=== PATIENT | male | born 1960 | race Caucasian/White ===

== ENCOUNTER → 2017-10-26 | Outpatient (CLI) | payer MEDICARE, OTHER ==
--- NOTE | 2017-10-27 08:21 | MR ---
EXAMINATION TYPE: MR lumbar spine wo con DATE OF EXAM: 10/26/2017 COMPARISON: NONE HISTORY: Back pain TECHNIQUE: T1 and T2 axial and sagittal images of the lumbar spine are submitted. FINDINGS: There is no abnormal signal seen within the visualized spinal cord or paraspinal soft tissu es. At T11-T12 there is degenerative disc disease and sagittal disc bulging. Axial images do not include this region. T12-L1 no disc herniation or canal stenosis. No foraminal encroachment. There is mild facet arthropat hy At L1-2 there is no disc herniation or canal stenosis. There is hypertrophic change facets. No forami nal encroachment. At L2-3 there is degenerative disc disease and hypertrophic changes facets. Mild circumferential disc bulging but no foraminal encroachment or canal stenosis. No focal herniation. At L3-4 there is degenerative disc disease with moderate facet arthropathy and ligamentum flavum hype rtrophy. Circumferential disc bulging is seen with mild bilateral foraminal encroachment. At L4-5 there is moderate to severe facet arthropathy. Circumferential disc bulging is seen greater p aracentrally to the right with mild bilateral foraminal encroachment. There is mild effacement of the michelle sac and borderline canal stenosis. At L5-S1 there is vacuum disc and severe degenerative disc disease with facet arthropathy. There is m ild bilateral foraminal encroachment but no canal stenosis or focal herniation. IMPRESSION: 1. Multilevel degenerative disc disease and facet arthropathy result in multilevel foraminal encroach ment as discussed above. 2. There is multilevel disc bulging but no evidence of focal herniation any of the visualized levels. Borderline canal stenosis L4-L5 foraminal encroachment. 3. There is a mixed signal in the region of the gallbladder fossa which could be related to gallstone s. Correlate with ultrasound.
== END | disposition home or self-care (01) ==
LOC: RADMRIMAIN 08:39
PROVIDERS: ATTEND Family Medicine
DX: M48.061 Spinal stenosis, lumbar region without neurogenic claudication (principal); M51.26 Other intervertebral disc displacement, lumbar region; M51.36 Other intervertebral disc degeneration, lumbar region; M46.96 Unspecified inflammatory spondylopathy, lumbar region
CPT/HCPCS: 72148

== ENCOUNTER → 2018-11-15 | Outpatient (CLI) | payer MEDICARE, OTHER ==
--- NOTE | 2018-11-15 10:58 | NM ---
Nuclear medicine hepatobiliary scan. HISTORY: Pain. DOSAGE: The patient disease 8 ounces ensure plus and 4.6 mCi of Technetium 99m Choletec. FINDINGS: There is normal hepatic extraction. The gallbladder is seen by 40 minutes. There is bilia ry to bowel clearance by 25 minutes. Ejection fraction is 76%. IMPRESSION: 1. Normal hepatobiliary exam
== END | disposition home or self-care (01) ==
LOC: RADNMMAIN 08:44
PROVIDERS: ATTEND Family Medicine
DX: R10.11 Right upper quadrant pain (principal)
CPT/HCPCS: 78226; A9537

== ENCOUNTER 2021-07-17 15:05 | Emergency (ER) | payer MEDICARE, OTHER ==
[2021-07-17 15:21] VITALS: RESP 18; TEMP 97.9
[2021-07-17] MEDS ORDERED: MORPHINE SULFATE 4 MG/ML SYRINGE IM STA (15:53)
--- NOTE | 2021-07-17 16:21 | ED ---
Fall HPI - General Chief Complaint: Fall Stated Complaint: Fall/Hip pain Time Seen by Provider: 07/17/21 15:42 Source: patient, EMS Mode of arrival: EMS - History of Present Illness Initial Comments: Patient is a 60-year-old male who presents to the emergency department with chief complaint of right hip pain due to fall Saturday. Patient was getting out of his car while it was dark out and tripped over the curb, landing on his left side. Patient hit his head and lost consciousness briefly. He has not blood thinners. Patient currently reports left shoulder pain, right hip pain, and lower back pain. Patient thought pain would improve but it not. He denies other complaints at this time including fever, chills, headache, shortness of breath, chest pain, abdominal pain,/tingling in the groin, urinary retention, and loss of bowel/bladder control. - Related Data Home Medications Medication Instructions Recorded Confirmed Ascorbic Acid [Vitamin C] 500 mg PO DAILY 07/17/21 07/17/21 Atorvastatin Calcium [Lipitor] 80 mg PO HS 07/17/21 07/17/21 Budesonide/Formoterol Fumarate 2 puff INHALATION RT-BID 07/17/21 07/17/21 [Symbicort 160-4.5 Mcg Inhaler] Cariprazine HCl [Vraylar] 1.5 mg PO HS 07/17/21 07/17/21 FLUoxetine HCL [PROzac] 40 mg PO DAILY 07/17/21 07/17/21 HYDROcodone/APAP 7.5-325MG [Valliant 2 tab PO BID 07/17/21 07/17/21 7.5-325] Insulin Degludec [Tresiba 25 units SQ HS 07/17/21 07/17/21 Flextouch U-100 Pen] Linagliptin [Tradjenta] 5 mg PO DAILY 07/17/21 07/17/21 Losartan/Hydrochlorothiazide 1 tab PO DAILY 07/17/21 07/17/21 [Losartan-Hctz 100-25 mg Tab] Omeprazole 20 mg PO DAILY 07/17/21 07/17/21 metFORMIN HCL [Glucophage] 1,000 mg PO BID 07/17/21 07/17/21 Allergies Allergy/AdvReac Type Severity Reaction Status Date / Time No Known Allergies Allergy Verified 07/17/21 16:39 Review of Systems ROS Statement: Those systems with pertinent positive or pertinent negative responses have been documented in the HPI. ROS Other: All systems not noted in ROS Statement are negative. Past Medical History Past Medical History: Asthma, COPD, Diabetes Mellitus, Hyperlipidemia, Hypertension Past Surgical History: Hernia Repair, Tonsillectomy Additional Past Surgical History / Comment(s): Left Knee surg. Past Psychological History: Bipolar Smoking Status: Never smoker Past Alcohol Use History: Occasional Past Drug Use History: Marijuana General Exam Limitations: no limitations General appearance: alert, in no apparent distress Head exam: Present: atraumatic, normocephalic, normal inspection Eye exam: Present: normal appearance, PERRL, EOMI. Absent: scleral icterus, conjunctival injection, periorbital swelling Neck exam: Present: normal inspection, full ROM. Absent: tenderness Respiratory exam: Present: normal lung sounds bilaterally. Absent: respiratory distress, wheezes, rales, rhonchi, stridor Cardiovascular Exam: Present: regular rate, normal rhythm, normal heart sounds. Absent: systolic murmur, diastolic murmur, rubs, gallop, clicks GI/Abdominal exam: Present: soft, normal bowel sounds. Absent: distended, tenderness, guarding, rebound, rigid Extremities exam: Present: normal inspection, full ROM (Left shoulder, back, right hip), tenderness (Pain with palpation of the left anterior shoulder), normal capillary refill Right Hip exam: Present: normal inspection, full ROM. Absent: tenderness Back exam: Present: normal inspection, full ROM, tenderness (Pain along the spinous processes of the lumbosacral spine), vertebral tenderness. Absent: muscle spasm, paraspinal tenderness Neurological exam: Present: alert, oriented X3, CN II-XII intact Psychiatric exam: Present: normal affect, normal mood Course Vital Signs 07/17/21 07/17/21 15:09 17:26 Temperature 97.9 F Pulse Rate 71 60 Respiratory 18 18 Rate Blood Pressure 143/83 137/73 O2 Sat by Pulse 99 98 Oximetry Medical Decision Making - Medical Decision Making This is a 60-year-old male who presents with right hip pain after fall yesterday. Thorough history and examination were performed. CT of the brain and C-spine without contrast revealed no acute intracranial hemorrhage, mass effect, midline shift seen and there is no acute fracture or dislocation evident in the cervical spine. Left shoulder x-ray reveals no definite acute fracture or dislocation. Lumbosacral spine and right hip, and pelvis x-ray are unremarkable. Results discussed with patient. We discussed the incidental findings found on CT of the brain and C-spine without contrast. Patient is instructed to follow- up with his primary care provider in 1 to 2 days. Patient given walker prescription as he has concern with unsteady gait due to pain. Fall risk education was given. Dr. Carbajal is my attending. Disposition Clinical Impression: Right hip pain Disposition: HOME SELF-CARE Condition: Good Instructions (If sedation given, give patient instructions): Fall Prevention for Older Adults (ED) Additional Instructions: You may use walker to assist to with activity. Take Tylenol as needed for pain. Follow-up with primary care provider in 1-[address] shows heterogenous parotid glands.. Follow up with cycle specialist if pain does not resolve in 1 to 2 weeks. Is patient prescribed a controlled substance at d/c from ED?: No Referrals: Palmira Harris DO [Primary Care Provider] - 1-2 days Toro Shipman MD [Medical Doctor] - 1-2 days Time of Disposition: 18:38
--- NOTE | 2021-07-17 16:33 | CT ---
EXAMINATION TYPE: CT brain cspine wo con DATE OF EXAM: 07/17/2021 COMPARISON: None available HISTORY: Fall. CT DLP: 1669.8 mGycm Automated exposure control for dose reduction was used. TECHNIQUE: CT scan of the head and cervical spine are performed without contrast. FINDINGS: There is no acute intracranial hemorrhage, mass effect, or midline shift identified. The ventricles and sulci are within normal limits in size. The globes are intact and the visualized sin uses are clear. Cervical spine is visualized in its entirety from C1 through upper thoracic levels and demonstrates s atisfactory alignment without evidence of acute fracture or dislocation. Prevertebral soft tissue ap pears within normal limits. The C1-C2 articulation is unremarkable. Degenerative changes from C3-4 d own to C7-T1 levels. Heterogeneous parotid glands, please correlate clinically. IMPRESSION: 1. There is no acute fracture or dislocation evident in the cervical spine. 2. No acute intracranial hemorrhage, mass effect, or midline shift is seen. 3. Incidental findings as described above.
--- NOTE | 2021-07-17 16:37 | XR ---
EXAMINATION TYPE: XR lumbosacral spine min 4V DATE OF EXAM: 07/17/2021 4:06 PM INDICATION: Patient age:Male; 60 years old; Reason for study: fall; COMPARISON: None TECHNIQUE: The lumbar spine was examined in 2 views. FINDINGS: No evidence of any acute osseous pathology. No evidence of loss of vertebral body height i s seen. There is normal alignment of the lumbar vertebral bodies. Multilevel disc degeneration change s are present osteophyte formation and facet joint arthropathy. IMPRESSION: 1. No acute process. 2. Mild multilevel disc degeneration.
--- NOTE | 2021-07-17 16:37 | XR ---
EXAMINATION TYPE: XR shoulder complete LT DATE OF EXAM: 07/17/2021 COMPARISON: Unavailable INDICATION: Fall TECHNIQUE: 3 views of the left shoulder FINDINGS: Osteopenia. No definite acute fracture line identified. No humeral head dislocation or significant stauffer bluxation. Mild degenerative changes of the acromioclavicular joint. No signs of rotator cuff calcifi c tendinitis. Rather maintained acromial humeral distance. IMPRESSION: No definite acute fracture or dislocation.
--- NOTE | 2021-07-17 16:38 | XR ---
EXAMINATION TYPE: XR Hip Complete RT DATE OF EXAM: 07/17/2021 4:03 PM INDICATION: Patient age:Male; 60 years old; Reason for study: fall; COMPARISON: None. TECHNIQUE: The right hip was examined in the frontal and lateral projections FINDINGS: Severe degenerative changes of the right hip with sclerosis and wjsh-oe-ykhc articulation. No evidence of any acute osseous pathology, joint dislocation, or soft tissue swelling. IMPRESSION: End-stage osteoarthritic changes of the right hip. No evidence of fracture.
--- NOTE | 2021-07-17 19:02 | XR ---
EXAMINATION TYPE: XR pelvis AP view DATE OF EXAM: 07/17/2021 6:19 PM INDICATION: Patient age:Male; 60 years old; Reason for study: fall; COMPARISON: Right hip radiograph same day. TECHNIQUE: The pelvis was examined in a single projection. FINDINGS: Severe degenerative changes of the hips of [id number]-hg-[id number] articulation. No evidence of displa sunny fracture. IMPRESSION: 1. No acute osseous pathology. 2. End-stage osteoarthritic changes of the hips.
[2021-07-17 19:10] VITALS: BP 172/77; PULSE 83
== END 2021-07-17 19:19 | disposition home or self-care (01) ==
LOC: EC 15:05
DX: M25.551 Pain in right hip (principal); M54.50 Low back pain, unspecified; M25.512 Pain in left shoulder; E11.9 Type 2 diabetes mellitus without complications; I10 Essential (primary) hypertension; J44.9 Chronic obstructive pulmonary disease, unspecified; E78.5 Hyperlipidemia, unspecified; F31.9 Bipolar disorder, unspecified; F12.90 Cannabis use, unspecified, uncomplicated; Z79.4 Long term (current) use of insulin; Z79.84 Long term (current) use of oral hypoglycemic drugs; Z79.899 Other long term (current) drug therapy; W01.0XXA Fall on same level from slipping, tripping and stumbling without subsequent striking against object, initial encounter
CPT/HCPCS: 72110; 72170; 73030; 73502; 72125; 70450; 99284; 96372; J2270

== ENCOUNTER 2021-10-05 07:11 | Day surgery (SDC) | payer MEDICARE, OTHER ==
[2021-10-04 13:41] VITALS: BMI 38.7
[2021-10-05] MEDS ORDERED: LACTATED RINGERS 1,000 ML IV SCH (07:52)
[2021-10-05 08:12] LABS: Glucose,Whole Blood 147 mg/dL (75-99)
[2021-10-05 08:16] VITALS: RESP 16; TEMP 97.9
[2021-10-05] MEDS ORDERED: PROPOFOL 10 MG/ML 20 ML VIAL IV ONE (08:26)
[2021-10-05] MEDS ORDERED: LIDOCAINE 2% INJ 20 MG/ML (2 ML VIAL) ONE (08:26)
--- NOTE | 2021-10-05 08:30 | P.GSHP ---
History of Present Illness H&P Date: 10/05/21 Chief Complaint: Screening This a 60-year-old male who presents today for screening colonoscopy. Patient denies any significant GI complaints. Past Medical History Past Medical History: Asthma, COPD, Diabetes Mellitus, Fibromyalgia, G ERD/Reflux, Hyperlipidemia, Hypertension, Musculoskeletal Disorder, Osteoarthritis (OA) Additional Past Medical History / Comment(s): "Palpitations occasionally". Hemorrhoids, hx colon polyps. "Lumbar/sacral thinning discs". "Sores all over my body but most on left side, not sure what they are, Dr gave me Cortisone cream but hasn't helped, have had them for over a month, look like zits, they are itchy and if I pop them slightly discolored pus comes out". "Recent fall (07/16/21), seen in ER and everything checked out ok but I did injure right knee and right hip, had already suffered from chronic back pain but it has gotten a lot worse, I can hardly walk, using a walker". History of Any Multi-Drug Resistant Organisms: None Reported Past Surgical History: Hernia Repair, Orthopedic Surgery, Tonsillectomy Additional Past Surgical History / Comment(s): Left knee surgery, surgery for undescended testicles. ,COLONOSCOPY Past Anesthesia/Blood Transfusion Reactions: No Reported Reaction Smoking Status: Never smoker - Past Family History Father Family Medical History: Cancer Additional Family Medical History / Comment(s): Pancreatic cancer. Mother Additional Family Medical History / Comment(s): "Stent in heart, had blood clots." Medications and Allergies Home Medications Medication Instructions Recorded Confirmed Type Ascorbic Acid [Vitamin C] 500 mg PO DAILY 10/04/21 10/04/21 History Atorvastatin [Lipitor] 80 mg PO HS 10/04/21 10/04/21 History Budesonide/Formoterol Fumarate 2 puff INHALATION BID 10/04/21 10/04/21 History [Symbicort 160-4.5 Mcg Inhaler] FLUoxetine HCL [PROzac] 40 mg PO DAILY 10/04/21 10/04/21 History HYDROcodone/APAP 7.5-325MG [Crockett 1 tab PO Q6HR PRN 10/04/21 10/04/21 History 7.5-325] Insulin Degludec [Tresiba] 25 units SQ HS 10/04/21 10/04/21 History Linagliptin [Tradjenta] 5 mg PO DAILY 10/04/21 10/04/21 History Losartan/Hydrochlorothiazide 1 tab PO DAILY 10/04/21 10/04/21 History [Losartan-Hctz 100-25 mg Tab] Omeprazole 20 mg PO DAILY 10/04/21 10/04/21 History metFORMIN HCL [Glucophage] 1,000 mg PO BID 10/04/21 10/04/21 History Allergies Allergy/AdvReac Type Severity Reaction Status Date / Time empagliflozin Allergy High blood Verified 10/05/21 07:56 [From Jardiance] sugar Penicillins Allergy Unknown Verified 10/05/21 07:56 Childhood Surgical - Exam Vital Signs Temp Pulse Resp BP Pulse Ox 97.9 F 80 16 156/72 100 10/05/21 08:14 10/05/21 08:14 10/05/21 08:14 10/05/21 08:14 10/05/21 08:14 - General well developed, well nourished, no distress - Eyes PERRL - ENT normal pinna - Neck no masses - Respiratory normal expansion - Cardiovascular Rhythm: regular - Abdomen Abdomen: soft, non tender Results - Labs Abnormal Lab Results - Last 24 Hours (Table) 10/05/21 Range/Units 08:11 POC Glucose (mg/dL) 147 H (75-99) mg/dL Assessment and Plan Assessment: We'll perform screening colonoscopy.
--- NOTE | 2021-10-05 08:41 | P.OP ---
Date of Procedure: 10/05/21 Preoperative Diagnosis: Screening colonoscopy Postoperative Diagnosis: Internal and external hemorrhoids Mild diverticulosis Procedure(s) Performed: Colonoscopy Anesthesia: MAC Surgeon: Abraham Vaz Pathology: none sent Condition: stable Disposition: PACU Description of Procedure: Patient's placed on the endoscopy table in the lateral position. He received IV sedation. Digital rectal exam was performed. This revealed internal and external hemorrhoids. The flexible colonoscope was then placed patient anus passed rotator entire colon. The ileocecal valve was visualized. The cecum, ascending and transverse colon appeared normal. The descending; was mild diverticular changes. Scope was brought back the rectum and this appeared normal. Scope withdrawn for patient.
[2021-10-05 09:02] VITALS: BP 107/75; PULSE 83
== END 2021-10-05 09:12 | disposition home or self-care (01) ==
LOC: ORWHC2ENDO 07:11
PROVIDERS: ATTEND Surgery
DX: Z12.11 Encounter for screening for malignant neoplasm of colon (principal); K57.90 Diverticulosis of intestine, part unspecified, without perforation or abscess without bleeding; K64.4 Residual hemorrhoidal skin tags; K64.8 Other hemorrhoids; K21.9 Gastro-esophageal reflux disease without esophagitis; E11.9 Type 2 diabetes mellitus without complications; E78.5 Hyperlipidemia, unspecified; I10 Essential (primary) hypertension; J44.9 Chronic obstructive pulmonary disease, unspecified; M17.11 Unilateral primary osteoarthritis, right knee; M79.7 Fibromyalgia; Z79.4 Long term (current) use of insulin; Z79.51 Long term (current) use of inhaled steroids; Z87.19 Personal history of other diseases of the digestive system; Z88.0 Allergy status to penicillin
CPT/HCPCS: G0121; J2704; J2001

== ENCOUNTER 2021-11-06 06:19 | Day surgery (SDC) | payer MEDICARE, OTHER ==
[2021-11-02 14:57] VITALS: BMI 36.8
[~2021-11-06 06:19] MED LIST: ACETAMINOPHEN TAB 500 MG TAB PO PRN; DEXAMETHASONE SOD PHOSPHATE 4 MG/ML 1 ML VIAL IV ONE; HEPARIN SODIUM,PORCINE/PF 5,000 UNIT/0.5 ML SYRINGE SQ PRN; HYDROmorphone 0.5 MG/0.5 ML SYRINGE IVP PRN; LACTATED RINGERS 1,000 ML IV SCH; LIDOCAINE 1% (10MG/ML) FOR IV START INTRADERMA PRN; ONDANSETRON 4 MG/2 ML VIAL IVP ONE; Pre Op ABX Message 1 EACH MISC MISCELLANE ONE
[2021-11-06 07:06] VITALS: RESP 16
[2021-11-06 07:13] LABS: Glucose,Whole Blood 187 mg/dL (70-110)
[2021-11-06] MEDS ORDERED: fentaNYL (PF) 50 MCG/ML 2 ML AMP ONE (07:49)
[2021-11-06] MEDS ORDERED: PHENYLEPHRINE-0.9% NACL SYG 1,000 MCG/10 ML SYRINGE ONE (07:49)
[2021-11-06] MEDS ORDERED: MIDAZOLAM 2 MG/2 ML VIAL ONE (07:49)
--- NOTE | 2021-11-06 07:56 | P.GSHP ---
History of Present Illness H&P Date: 11/06/21 Chief Complaint: Internal and external hemorrhoids This is a 61-year-old male who presents today for hemorrhoidectomy. Patient has had issues with bleeding pain from internal and external hemorrhoids. He presents today for hemorrhoidectomy. Past Medical History Past Medical History: Asthma, COPD, Diabetes Mellitus, Fibromyalgia, GERD/Reflux, Hyperlipidemia, Hypertension, Musculoskeletal Disorder, Osteoarthritis (OA) Additional Past Medical History / Comment(s): "Palpitations occasionally". Hemorrhoids, hx colon polyps. "Lumbar/sacral thinning discs". "Sores all over my body but most on left side, not sure what they are, Dr gave me Cortisone cream but hasn't helped, have had them for over a month, look like zits, they are itchy and if I pop them slightly discolored pus comes out". "Recent fall (07/16), seen in ER and everything checked out ok but I did injure right knee and right hip, had already suffered from chronic back pain but it has gotten a lot worse, I can hardly walk, using a walker". History of Any Multi-Drug Resistant Organisms: None Reported Past Surgical History: Hernia Repair, Orthopedic Surgery, Tonsillectomy Additional Past Surgical History / Comment(s): Left knee surgery, surgery for undescended testicles, COLONOSCOPY. Past Anesthesia/Blood Transfusion Reactions: No Reported Reaction Past Psychological History: Bipolar Smoking Status: Never smoker Past Alcohol Use History: Occasional Past Drug Use History: Marijuana Additional Drug Use History / Comment(s): Marijuana use once a day. Aware no use 24 hrs prior to procedure. - Past Family History Father Family Medical History: Cancer Additional Family Medical History / Comment(s): Pancreatic cancer. Mother Additional Family Medical History / Comment(s): "Stent in heart, had blood clots." Medications and Allergies Home Medications Medication Instructions Recorded Confirmed Type Ascorbic Acid [Vitamin C] 500 mg PO DAILY 10/04/21 11/06/21 History Atorvastatin [Lipitor] 80 mg PO HS 10/04/21 11/06/21 History Budesonide/Formoterol Fumarate 2 puff INHALATION BID PRN 10/04/21 11/06/21 History [Symbicort 160-4.5 Mcg Inhaler] FLUoxetine HCL [PROzac] 40 mg PO QAM 10/04/21 11/06/21 History HYDROcodone/APAP 7.5-325MG [Garrard 1 tab PO Q6HR PRN 10/04/21 11/06/21 History 7.5-325] Insulin Degludec [Tresiba] 28 units SQ HS 10/04/21 11/06/21 History Linagliptin [Tradjenta] 5 mg PO QAM 10/04/21 11/06/21 History Losartan/Hydrochlorothiazide 1 tab PO QAM 10/04/21 11/06/21 History [Losartan-Hctz 100-25 mg Tab] Omeprazole 20 mg PO QAM 10/04/21 11/06/21 History metFORMIN HCL [Glucophage] 1,000 mg PO BID 10/04/21 11/06/21 History Allergies Allergy/AdvReac Type Severity Reaction Status Date / Time empagliflozin Allergy High blood Verified 11/06/21 06:49 [From Jardiance] sugar Penicillins Allergy Unknown Verified 11/06/21 06:49 Childhood Surgical - Exam Vital Signs Temp Pulse Resp BP Pulse Ox 96.9 F L 70 16 131/71 98 11/06/21 06:46 11/06/21 06:46 11/06/21 06:46 11/06/21 06:46 11/06/21 06:46 - General well developed, well nourished, no distress - Eyes PERRL - ENT normal pinna - Neck no masses - Respiratory normal expansion - Cardiovascular Rhythm: regular - Abdomen Abdomen: soft, non tender - Rectum Internal and external hemorrhoids Results - Labs Abnormal Lab Results - Last 24 Hours (Table) 11/06/21 Range/Units 07:10 POC Glucose (mg/dL) 187 H (70-110) mg/dL Assessment and Plan Assessment: Internal and external hemorrhoids. We'll perform hemorrhoidectomy.
[2021-11-06] MEDS ORDERED: SODIUM CHLORIDE 0.9% 50 ML with ceFAZolin 2,000 MG IV ONE ×2 (08:23)
[2021-11-06] MEDS ORDERED: BUPIVACAIN-EPI 0.25%-1:200,000 30 ML VIAL SQ ONE (08:23)
--- NOTE | 2021-11-06 08:35 | P.OP ---
Date of Procedure: 11/06/21 Preoperative Diagnosis: Internal and external hemorrhoids Postoperative Diagnosis: Internal hemorrhoids Procedure(s) Performed: Internal and external hemorrhoidectomy Anesthesia: spinal Surgeon: Abraham Vaz Estimated Blood Loss (ml): 5 Pathology: other (Hemorrhoids) Condition: stable Disposition: PACU Description of Procedure: The patient's placed in the prone position after receiving spinal anesthetic. His anus was prepped and draped usual fashion. The patient internal and external hemorrhoids. Using the anal retractor the right anterior hemorrhoidal column was grasped and then using Harmonic scissors the hemorrhoids were excised. The left lateral hemorrhoidal column was then grasped and excised with Harmonic scissors. And then the right posterior hemorrhoidal column was grasped excised and Harmonic scissors. There was no bleeding seen. A Gelfoam was placed in the anus. Patient top she will well. Sent to recovery room stable condition.
[2021-11-06 08:47] VITALS: TEMP 97
[2021-11-06 09:43] VITALS: BP 148/87; PULSE 72
== END 2021-11-06 10:12 | disposition home or self-care (01) ==
LOC: OR 06:19
PROVIDERS: ATTEND Surgery
DX: K64.4 Residual hemorrhoidal skin tags (principal); J44.9 Chronic obstructive pulmonary disease, unspecified; E11.9 Type 2 diabetes mellitus without complications; M79.7 Fibromyalgia; K21.9 Gastro-esophageal reflux disease without esophagitis; E78.5 Hyperlipidemia, unspecified; I10 Essential (primary) hypertension; M19.90 Unspecified osteoarthritis, unspecified site; Z86.010 Personal history of colon polyps; G89.29 Other chronic pain; M54.9 Dorsalgia, unspecified; Z98.890 Other specified postprocedural states; F31.9 Bipolar disorder, unspecified; Z80.0 Family history of malignant neoplasm of digestive organs; Z82.49 Family history of ischemic heart disease and other diseases of the circulatory system; Z79.84 Long term (current) use of oral hypoglycemic drugs; Z79.4 Long term (current) use of insulin; Z79.899 Other long term (current) drug therapy; Z88.0 Allergy status to penicillin; Z88.8 Allergy status to other drugs, medicaments and biological substances
CPT/HCPCS: 88304; 46260; J2250; J1100; J2405; J0690; J3010; J2370; J1644

== ENCOUNTER → 2021-12-12 | Outpatient (CLI) | payer MEDICARE, OTHER ==
--- NOTE | 2021-12-13 09:07 | CA ---
Transthoracic Echo Report Name: Nba Lopez Age: 61 Gender: M : 1960 Exam Date: 12/12/2021 14:55 Exam Location: [place] [facility] Ht (in): 68 Wt (lb): 252 Ordering Physician: Palmira Harris DO Attending/Referring Phys: Maria Teresa Duque [facility] Staff Radiographer Jadyn Rosario, MARILYN Procedure CPT: Indications: R01.1 cardiac murmur Cardiac Hx: Technical Quality: Fair Contrast 1: Total Dose (mL): Contrast 2: Total Dose (mL): MEASUREMENTS (Male / Female) Normal Values 2D ECHO LV Diastolic Diameter PLAX 5.0 cm 4.2 - 5.9 / 3.9 - 5.3 cm LV Systolic Diameter PLAX 3.6 cm IVS Diastolic Thickness 1.3 cm 0.6 - 1.0 / 0.6 - 0.9 cm LVPW Diastolic Thickness 1.5 cm 0.6 - 1.0 / 0.6 - 0.9 cm LV Relative Wall Thickness 0.5 RV Internal Dim ED PLAX 3.1 cm LA Volume 71.9 cm??? 18 - 58 / 22 - 52 cm??? M-MODE Aortic Root Diameter MM 3.4 cm LA Systolic Diameter MM 4.1 cm LA Ao Ratio MM 1.2 MV E Point Septal Separation 0.0 cm AV Cusp Separation MM 2.0 cm DOPPLER MV Area PHT 3.8 cm??? Mitral E Point Velocity 50.8 cm/s Mitral A Point Velocity 73.1 cm/s Mitral E to A Ratio 0.7 MV Deceleration Time 198.8 ms FINDINGS Left Ventricle Left ventricular ejection fraction is estimated at 50-55%. Mildly increased left ventricular wall thickness. Right Ventricle Normal right ventricular size and function. Right ventricular systolic pressure within normal limits. Right Atrium Normal right atrial size. Left Atrium Moderately increased left atrial volume. Mitral Valve Mitral valve not well visualized. [id number] mitral regurgitation. Aortic Valve Trileaflet aortic valve. Aortic valve sclerosis. Tricuspid Valve Structurally normal tricuspid valve. Trace tricuspid regurgitation. Pulmonic Valve Pulmonic valve not well visualized. Pericardium Echo free space anterior to the right ventricle likely represents a fat pad. Aorta Normal size aortic root and proximal ascending aorta. CONCLUSIONS Normal LV size and systolic function Previewed by: Dr. Chris Cox MD (Electronically Signed) Final Date: 13 December 2021 09:06
== END | disposition home or self-care (01) ==
LOC: RADECHMAIN 14:38
PROVIDERS: ATTEND Family Medicine
DX: I08.2 Rheumatic disorders of both aortic and tricuspid valves (principal)
CPT/HCPCS: 93306

== ENCOUNTER → 2022-01-29 | Outpatient (CLI) | payer MEDICARE, OTHER ==
[2022-01-29 15:18] LABS: INR 0.9 (<1.2); Partial Thromboplastin Time 22.8 sec (22.0-30.0); Prothrombin Time 10.4 sec (9.0-12.0)
[2022-01-29 18:06] LABS: HCT 35.8 % (39.6-50.0); HGB 11.7 g/dL (13.0-17.0); MCH 28.7 pg (27.0-32.0); MCHC 32.7 g/dL (32.0-37.0); MCV 87.7 fL (80.0-97.0); Mean Platelet Volume 10.1 fL (9.5-12.2); NRBC Per 100 WBC 0 /100 WBCS (0.0-0.0); Platelet Count 326 X 10*3/uL (140-440); RBC 4.08 X 10*6/uL (4.40-5.60); RDW 14.1 % (11.5-14.5); WBC 10.86 X 10*3/uL (4.50-10.00)
[2022-01-29 18:54] LABS: Albumin 4.2 g/dL (3.8-4.9); Albumin/Globulin Ratio 1.47 (1.60-3.17); Anion Gap 15.8 mmol/L (10.00-18.00); BUN/Creat Ratio 13.31 Ratio (12.00-20.00); Blood Urea Nitrogen 20.9 mg/dL (9.0-27.0); Calcium 9.1 mg/dL (8.7-10.3); Carbon Dioxide 23.9 mmol/L (20.0-27.5); Globulin 2.9 g/dL (1.6-3.3); Non-African American GFR(CKD) 46.6 (60.0-200.0); Potassium 3.9 mmol/L (3.5-5.5); Total Bilirubin 0.3 mg/dL (0.30-1.20); Total Protein 7.1 g/dL (6.2-8.2)
[2022-01-29 22:23] LABS: Appearance,Urine Clear (Clear); Bilirubin,Urine Negative (Negative); Blood,Urine Negative (Negative); Color,Urine Yellow (Yellow); Ketones,Urine Trace mg/dL (Negative); Nitrite,Urine Negative (Negative); PH, Urine 5.5 (5.0-8.0); Specific Gravity,Urine 1.027 (1.001-1.030)
== END | disposition home or self-care (01) ==
LOC: LABPAT 13:05
PROVIDERS: ATTEND Orthopaedic Surgery
DX: Z01.812 Encounter for preprocedural laboratory examination (principal)
CPT/HCPCS: 80053; 81003; 85027; 85610; 85730; 87070; 93005

== ENCOUNTER 2022-02-09 05:49 | Observation (INO) | payer MEDICARE, OTHER ==
[2022-01-31 14:57] VITALS: BMI 37.2
[~2022-02-09 05:49] MED LIST changes: -DEXAMETHASONE SOD PHOSPHATE 4 MG/ML 1 ML VIAL IV ONE; -HEPARIN SODIUM,PORCINE/PF 5,000 UNIT/0.5 ML SYRINGE SQ PRN; -HYDROmorphone 0.5 MG/0.5 ML SYRINGE IVP PRN; -LACTATED RINGERS 1,000 ML IV SCH; -LIDOCAINE 1% (10MG/ML) FOR IV START INTRADERMA PRN; -ONDANSETRON 4 MG/2 ML VIAL IVP ONE; +ONDANSETRON 4 MG/2 ML VIAL IVP PRN; -Pre Op ABX Message 1 EACH MISC MISCELLANE ONE; +TRANEXAMIC ACID IN NACL,ISO-OS 1,000 MG in SALINE 1 100ML.BAG IVPB PRN
[2022-02-09] MEDS ORDERED: KETOROLAC 15 MG/ML 1 ML VIAL IVP PRN (06:00)
[2022-02-09] MEDS ORDERED: DEXAMETHASONE SOD PHOSPHATE 10 MG/ML 1 ML VIAL IV PRN (06:00)
[2022-02-09] MEDS ORDERED: FAMOTIDINE 20 MG/2 ML VIAL IVP PRN (06:00)
[2022-02-09] MEDS ORDERED: DOCUSATE 100 MG CAP PO PRN (06:00)
[2022-02-09] MEDS ORDERED: oxyCODONE ER 10 MG TAB.ER.12H PO PRN (06:00)
[2022-02-09] MEDS ORDERED: MIDAZOLAM 2 MG/2 ML VIAL IV PRN (06:20)
[2022-02-09 06:41] LABS: Glucose,Whole Blood 168 mg/dL (70-110)
[2022-02-09] MEDS: LACTATED RINGERS 1,000 ML IV SCH (07:00)
[2022-02-09] MEDS ORDERED: fentaNYL (PF) 50 MCG/ML 2 ML AMP IVP ONE (07:09)
[2022-02-09] MEDS ORDERED: KETAMINE 10 MG/ML 20 ML VIAL ONE (07:25)
[2022-02-09] MEDS ORDERED: ROCURONIUM 10 MG/ML (5 ML VIAL) IV ONE (07:25)
[2022-02-09] MEDS ORDERED: SUCCINYLCHOLINE CHLORIDE 200 MG/10 ML VIAL IV ONE (07:25)
[2022-02-09] MEDS ORDERED: HYDROmorphone (PF) 1 MG/ML ONE (07:25)
[2022-02-09] MEDS ORDERED: SODIUM CHLORIDE 0.9% (PF) 10 ML VIAL ONE (07:25)
[2022-02-09] MEDS ORDERED: TRANEXAMIC ACID IN NACL,ISO-OS 1,000 MG/100 ML BAG ONE (07:25)
[2022-02-09] MEDS ORDERED: NEOSTIGMINE 1 MG/ML 10 ML VIAL ONE (07:25)
[2022-02-09] MEDS ORDERED: GLYCOPYRROLATE 0.2 MG/ML 2 ML VIAL ONE (07:25)
[2022-02-09] MEDS ORDERED: LIDOCAINE 2% INJ 20 MG/ML (2 ML VIAL) ONE (07:25)
[2022-02-09] MEDS ORDERED: fentaNYL (PF) 50 MCG/ML 2 ML AMP ONE (07:25)
[2022-02-09] MEDS ORDERED: PROPOFOL 10 MG/ML 20 ML VIAL IV ONE (07:25)
[2022-02-09] MEDS ORDERED: MIDAZOLAM 2 MG/2 ML VIAL ONE (07:25)
[2022-02-09] MEDS ORDERED: ROPIVACAINE 5 MG/ML 30 ML VIAL ONE (07:25)
[2022-02-09] MEDS ORDERED: ROPIVACAINE/EPI/CLONIDINE/KET 50 ML SYRINGE MISCELLANE PRN (07:26)
[2022-02-09] MEDS: ROPIVACAINE 246.25 MG, EPINEPHrine 0.5 MG, KETOROLAC (30 mg/mL) 30 MG, cloNIDine HCL/PF... MISCELLANE PRN ×10 (08:19→09:42)
[2022-02-09] MEDS ORDERED: LACTATED RINGERS 1,000 ML IV ONE (09:52)
--- NOTE | 2022-02-09 10:03 | FL ---
Fluoroscopy HISTORY: Right hip replacement 40 seconds fluoroscopy time supplied to the referring clinician. 6 intraoperative C-arm images docum ent the procedure. See dictated report from orthopedic surgery.
[2022-02-09] MEDS ORDERED: NALOXONE 0.4 MG/ML 1 ML VIAL IV PRN (10:23)
[2022-02-09] MEDS ORDERED: HYDROmorphone 0.5 MG/0.5 ML SYRINGE IVP PRN (10:23)
[2022-02-09] MEDS ORDERED: hydrOXYzine pamoate 25 MG CAP PO PRN (10:23)
[2022-02-09] MEDS ORDERED: HYDROmorphone 1 MG/ML 1 ML SYRINGE IVP PRN (10:23)
[2022-02-09] MEDS ORDERED: HYDROcodone/APAP 5-325MG 1 EACH TAB PO PRN ×2 (10:23)
--- NOTE | 2022-02-09 10:26 | P.OP ---
Date of Procedure: 02/09/22 Preoperative Diagnosis: 1. Severe right hip osteoarthritis 2. BMI 38.3 3. COPD 4. Type 2 diabetes, hemoglobin A1c 7.1 Postoperative Diagnosis: Same Procedure(s) Performed: Right direct anterior total hip arthroplasty Implants: 1. Gerri Trident II Acetabular Cup, Size #52 2. [place] Insignia Size # 7 Femoral Stem, Standard Offset 3. Biolox delta femoral head, 36, -5 neck Anesthesia: GETA Surgeon: Toro Shipman Director [employer] Security #1: Mary Carmen Hernández Estimated Blood Loss (ml): 200 IV fluids (ml): 1,200 Pathology: none sent Condition: stable Disposition: PACU Indications for Procedure: I had a long discussion with the patient in the office on the potential risks and complications of an elective total hip replacement through a direct anterior approach. Risks discussed include, but are certainly not limited to, risks from anesthesia, superficial infection requiring local wound care or antibiotics, deep honey-prosthetic joint infection and the treatment required to eradicate infection, intraoperative fracture, postoperative periprosthetic fracture, damage to local blood vessels or nerves particularly the lateral femoral cutaneous nerve, delayed wound healing requiring local wound care or possibly surgical debridement, hip dislocation, leg length discrepancy, soft tissue irritation around the total hip implant such as iliopsoas tendinitis or trochanteric bursitis, wear and osteolysis from the implants, squeaking or audible noises, groin pain, thigh pain, heterotopic ossification, stiffness, aseptic loosening of the implants, dissatisfaction with surgical outcome, need for revision surgery, DVT, PE, swelling of the operative extremity, acute coronary event, stroke, failure to thrive, and possibly loss of life or limb. The patient understands that while these are the most common complications after an elective hip replacement there are certainly other less common complications possible. They were given ample time to ask questions regarding the potential complications of a hip replacement. Following our discussion the patient provided their verbal and written consent to go forward with an elective total hip replacement. Operative Findings: Severe right hip osteoarthritis Description of Procedure: The patient was identified in the preoperative holding area and the correct hip was marked with my initials. I reviewed the procedure and consent with the patient. All of their questions were answered. The patient was then brought back into the operating room by anesthesia. While on the [facility] anesthesia was administered by the anesthesia team. Preoperative antibiotics and tranexamic acid were also given. After the patient was under anesthesia I examined their ankles to determine their preoperative leg length discrepancy. The skin over the anterior aspect of the hip was shaved to remove hair over the site of planned incision. Both feet and ankles were padded with webril and boots for the [place] were applied. The patient was then carefully transferred onto the [place] table. A perineal post was immediately placed. The arms were placed on arm holders and were well-padded. Both boots were secured to the spars on the [place] table. The patient was positioned so that the pelvis was centered over the post. Nonsterile drapes were applied. A timeout was performed identifying the correct patient, operative extremity, and procedure. At this point fluoroscopy was brought in to take preoperative images of the pelvis and operative hip. Using the standing AP pelvis from the office as a template, a comparable image was obtained with fluoroscopy. A metallic bar was used to create a bi-ischial line for use as a reference to leg length adjustments during the procedure. Global offset was also measured on both the operative and nonoperative leg. Fluoroscopy was then brought out and a pre-scrub using a chlorhexidine scrub brush was performed. The operative limb was then prepped and draped in the erika miguel sterile fashion. An anterior longitudinal incision was made lateral and distal to the ASIS. The skin and subcutaneous tissues were incised sharply. The underlying tensor fascia was identified and incised in its midportion. The fascia was dissected free from the underlying muscle and the muscle belly was retracted. A blunt tipped cobra retractor was placed over the superior neck under the muscle fibers of the gluteus minimus. The deep enveloping fascia of the tensor was incised. The anterior leash of vessels were then identified and cauterized. The fascia between the rectus and the capsule was then incised and the pre-capsular fat was excised. A second Cobra was placed inferior to the neck. The interval between the rectus and iliocapsularis and the hip capsule was developed and a retractor was placed carefully over the anterior rim of the acetabulum. A T-shaped anterior capsulotomy was performed. The superior capsular leaflet was left in place in the inferior capsular flap was excised. The Cobra retractors were placed intracapsularly. We then made a femoral neck osteotomy according to preoperative and intraoperative templating and confirmed the level of the osteot wandy using fluoroscopic imaging. The femoral head was removed, passed off to the back table, and sized. The superior capsular flap was excised. Retractors were placed circumferentially exposing the acetabulum. We then circumferentially debrided the acetabulum free of labrum and osteophytes. The pulvinar was removed to fully visualize the cotyloid fossa. We then sequentially reamed to achieve peripheral fit and excellent bleeding subchondral bone. The socket was thoroughly irrigated. The acetabular component was impacted into the appropriate position using fluoroscopy to guide version, inclination, and depth of insertion taking care to have a comparable image of the AP pelvis to the standing image taken in the office. An excellent press-fit was achieved and final position was confirmed using fluoroscopy. The press fit was augmented with bony cancellus dome screws. The liner was then impacted into the socket. Attention was then turned to the femur. The remnant dorsal lateral capsule was excised. The short external rotators were visible and protected. A bone hook was used to confirm appropriate translation of the trochanter away from the acetabulum. The leg was then extended and adducted and the bone hook was used to elevate the femur for broaching. A box osteotome and blunt tipped canal sound was then utilized to gain access to the femoral canal. We then sequenti ally broached the femur in appropriate anteversion until excellent torsional stability was achieved. The neck cut was brought flush to the trial broach with a calcar planar. A trial neck and head were then placed onto the broach and the hip was atraumatically reduced under direct visualization. External rotation to 90 was performed to assess stability. Fluoroscopy was brought in. An AP and l ateral fluoroscopic image of the proximal femur was obtained to assess position and fill of the trial broach. An AP of the pelvis was then obtained and matched to the preoperative image taken. A bi-ischial bar was then placed and measurements were taken to assess changes in length and offset. The hip was then carefully dislocated, the proximal femur was exposed, and the trial implants were removed. The wound and proximal femur was thoroughly irrigated using sterile saline and pulsatile lavage. The final femoral implant was dispensed and gently tapped into place generating an excellent press-fit. The trunnion was cleansed and the final head was tapped into place to engage the Kim taper. The acetabulum was irrigated and visualized to be free of debris. The hip was carefully reduced. Stability was checked clinically with external rotation to 90 and there was no evidence of instability. Final fluoroscopic images were taken. The wound was then thoroughly irrigated and soaked with a dilute Betadine rinse for 3 minutes. 3 L of sterile saline was irrigated through the wound using pulsatile lavage. Local anesthetic cocktail was injected into the soft tissues around the surgical field. A deep drain was placed. The wound was then closed in layers. A sterile dressing was placed over the surgical incision and drain site. The drapes were taken down and the patient was carefully transferred off of the [place] table. Following removal of the boots the leg lengths felt acceptable. The patient was then taken to recovery room having tolerated the procedure well. Mary Carmen Hernández PA-C was required as a skilled bioinformatics assistant for patient positioning, surgical exposure, retraction, placement of implants, and closure of the surgical wound. PLAN: The patient can weight-bear as tolerated on the operative extremity. 2 doses of postoperative antibiotics. DVT prophylaxis with aspirin 81 mg twice a day based on preoperative risk stratification. Physical therapy for gait training. Discontinue drain postoperative day #1 if output is less than 100 mL per shift.
[2022-02-09] MEDS: HYDROmorphone 0.5 MG/0.5 ML SYRINGE IVP PRN ×4 (10:35→22:01)
[2022-02-09 11:33] LABS: Glucose,Whole Blood 232 mg/dL (70-110)
[2022-02-09] MEDS ORDERED: INSULIN ASPART (NovoLOG) 100 UNIT/ML VIAL SQ ONE (11:46)
--- NOTE | 2022-02-09 13:19 | P.ANPRN ---
Procedure Note - Anesthesia - Nerve Block Performed Right Erector Spinae Time Out Performed: Yes (07:08) Date of Procedure: 02/09/22 Procedure Start Time: Procedure Stop Time: :16 Location of Patient: PreOp Indication: Acute Post-Operative Pain, Requested by Surgeon (Dr Shipman) Sedation Type: Sedate with meaningful contact maintained Preparation: Sterile Prep Position: Sitting Catheter: None Needle Types: Pajunk Needle Gauge: 21 Ultrasound used to visualize needle placement: Yes Ultrasound used to observe medication spread: Yes Injectate: 0.5% Ropivacaine (see comment for volume) (15cc +10cc PF Normal saline) Blood Aspirated: No Pain Paresthesia on Injection Noted: No Resistance on Injection: Normal Image Stored and Saved: Yes Events: Uneventful and Well Tolerated
[2022-02-09 16:48] LABS: Glucose,Whole Blood 210 mg/dL (70-110)
[2022-02-09] MEDS: SODIUM CHLORIDE 0.9% 1,000 ML IV SCH (17:24)
[2022-02-09 20:54] LABS: Glucose,Whole Blood 258 mg/dL (70-110)
[2022-02-09] MEDS: ASPIRIN 81 MG PO SCH (22:00)
[2022-02-09] MEDS: SENNOSIDES-DOCUSATE SODIUM 1 EACH TAB PO SCH (22:00)
[2022-02-10] MEDS: HYDROmorphone 0.5 MG/0.5 ML SYRINGE IVP PRN (06:05)
[2022-02-10 07:21] LABS: Glucose,Whole Blood 242 mg/dL (70-110)
[2022-02-10] MEDS: SODIUM CHLORIDE 0.9% 1,000 ML IV SCH (07:31)
[2022-02-10] MEDS: LACTATED RINGERS 1,000 ML IV SCH (07:33)
[2022-02-10] MEDS ORDERED: HYDROcodone/APAP 10-325MG 1 EACH TAB PO PRN (08:48)
--- NOTE | 2022-02-10 08:59 | P.PN ---
Subjective Progress Note Date: 02/10/22 Principal diagnosis: Status post right total hip arthroplasty This is a 61 year-old male post right direct anterior total hip arthroplasty. This is post-op day 1. The patient was evaluated at the bedside today. The patient denies nausea, vomiting, abdominal pain, shortness of breath, and chest pain this morning. He states his pain is not controlled at this time and only has received Dilaudid twice surgery and has not taken [place] yet. The patient does take 2 [place] 7.5mg on a daily basis at home preoperatively. The patient has not been up with physical therapy. The hemovac drain had 360 mL output since surgery. Objective - Vital Signs Vital signs: Vital Signs Temp 98.0 F 02/10/22 08:00 Pulse 98 02/10/22 08:00 Resp 16 02/10/22 08:00 BP 169/76 02/10/22 08:00 Pulse Ox 96 02/10/22 08:00 FiO2 Intake & Output 02/09/22 02/10/22 02/10/22 18:59 06:59 18:59 Intake Total 2800 120 Output Total 200 660 Balance 2600 -660 120 Weight 114.4 kg Intake: IV 1600 Intake, IV Titration 650 Amount Sodium Chloride 0.9% 1, 600 000 ml @ 75 mls/hr IV . [id number] [facility] Rx#:[id number] ceFAZolin 2 gm In Sodium 50 Chloride 0.9% 50 ml @ 100 mls/hr IVPB Q8HR [facility] Rx# :[id number] Oral 550 120 Output: Drainage 360 Right Hip 360 Urine 300 Estimated Blood Loss 200 Other: # Voids 3 - Exam The patient does not appear in acute distress. Alert and orientated x3. Dress ing is clean dry and intact. Incision site appears fine with no erythema or active drainage. Hemovac drain remains in. Calf is soft and nontender. Good foot and ankle motion without difficulty. Sensation and circulatory status is intact. - Labs Labs: Abnormal Lab Results - Last 24 Hours (Table) 02/09/22 02/09/22 02/09/22 Range/Units 11:30 16:45 20:53 POC Glucose (mg/dL) 232 H 210 H 258 H (70-110) mg/dL 02/10/22 Range/Units 07:19 POC Glucose (mg/dL) 242 H (70-110) mg/dL Assessment and Plan (1) Primary osteoarthritis of right hip Current Visit: Yes Status: Acute Code(s): M16.11 - UNILATERAL PRIMARY OSTEOARTHRITIS, RIGHT HIP SNOMED Code(s): 512316015463077 (2) Status post total hip replacement, right Current Visit: Yes Status: Acute Code(s): Z96.641 - PRESENCE OF RIGHT ARTIFICIAL HIP JOINT SNOMED Code(s): 749179591588 Plan: 1. Continue pain control, increase to [place] 10 mg with Dilaudid as needed. 2. Anticoagulation with Aspirin 3. Start physical therapy and ambulation today 4. Maintain hemovac drain. We will either remove later today or tomorrow morning. 5. Anticipate discharge home when pain is controlled.
[2022-02-10 09:02] LABS: Basophils # (A) 0.03 X 10*3/uL (0.00-0.10); Basophils % (A) 0.2 %; Eosinophils # (A) 0.01 X 10*3/uL (0.04-0.35); Eosinophils % (A) 0.1 %; HCT 27.1 % (39.6-50.0); HGB 8.6 g/dL (13.0-17.0); Immature Grans, Automated 0.3 %; Lymphocytes # (A) 2.15 X 10*3/uL (0.90-5.00); Lymphocytes % (A) 16.2 %; MCH 28.5 pg (27.0-32.0); MCHC 31.7 g/dL (32.0-37.0); MCV 89.7 fL (80.0-97.0); Mean Platelet Volume 10.2 fL (9.5-12.2); Monocytes # (A) 1.22 X 10*3/uL (0.20-1.00); Monocytes % (A) 9.2 %; NRBC Per 100 WBC 0 /100 WBCS (0.0-0.0); Neutrophils # (A) 9.81 X 10*3/uL (1.80-7.70); Platelet Count 266 X 10*3/uL (140-440); RBC 3.02 X 10*6/uL (4.40-5.60); RDW 14.2 % (11.5-14.5); WBC 13.26 X 10*3/uL (4.50-10.00)
--- NOTE | 2022-02-10 09:46 | P.PN ---
Progress Note - Text Progress Note Date: 02/10/22 I agree with the note and plan from this morning by Christie Phan NP. I also evaluated the patient at bedside. At time of my evaluation is sitting up in his bed. He reports moderate pain, but the back and groin pain from prior to surgery has significantly improved. His right leg is neurovascularly intact. We will clamp his drain for 4 hours and then resume suction overnight. He has been taking [place] at baseline prior to surgery we discussed this may make pain control following surgery more difficult. We will increase his [place] and if he continues to have pain will change his prescription to Percocet. He is agreeable to this. He'll likely discharge home tomorrow if his pain is co ntrolled and he passes physical therapy.
[2022-02-10] MEDS: HYDROcodone/APAP 10-325MG 1 EACH TAB PO PRN ×2 (09:54→14:11)
[2022-02-10] MEDS: ASPIRIN 81 MG PO SCH ×2 (09:54→21:38)
[2022-02-10 11:02] LABS: Glucose,Whole Blood 268 mg/dL (70-110)
[2022-02-10] MEDS: FLUoxetine HCL 20 MG CAP PO SCH (11:16)
[2022-02-10] MEDS: LINAGLIPTIN 5 MG TABLET PO SCH (11:16)
[2022-02-10] MEDS: LOSARTAN 50 MG TAB PO SCH (11:16)
[2022-02-10] MEDS: PANTOPRAZOLE 40 MG TABLET PO SCH (11:16)
[2022-02-10] MEDS: SYMBICORT 160-4.5 MCG INHALER INHALATION SCH ×2 (12:03→19:48)
[2022-02-10] MEDS: INSULIN ASPART (NovoLOG) 100 UNIT/ML VIAL SQ SCH ×3 (12:21→21:55)
[2022-02-10 16:13] LABS: Glucose,Whole Blood 190 mg/dL (70-110)
[2022-02-10] MEDS ORDERED: oxyCODONE-APAP 5-325MG 1 EACH TAB PO PRN (18:11)
[2022-02-10] MEDS: oxyCODONE-APAP 5-325MG 1 EACH TAB PO PRN (21:31)
[2022-02-10 21:39] LABS: Glucose,Whole Blood 269 mg/dL (70-110)
[2022-02-10] MEDS: PATIENT'S OWN (Cariprazine Hcl [Vraylar] 1.5 MG Capsule) PO SCH (21:39)
[2022-02-10] MEDS: ATORVASTATIN 80 MG TAB PO SCH (21:39)
[2022-02-10] MEDS: metFORMIN 500 MG TAB PO SCH (21:39)
[2022-02-10] MEDS: SENNOSIDES-DOCUSATE SODIUM 1 EACH TAB PO SCH (21:39)
--- NOTE | 2022-02-10 22:59 | P.CONS ---
History of Present Illness - Reason for Consult Consult date: 02/10/22 Medical management - Chief Complaint Right total hip arthroplasty - History of Present Illness Patient is a 61-year-old male with a known history of asthma/COPD, diabetes type 2 insulin-dependent, hypertension, hyperlipidemia, osteoarthritis and history of back pain and bipolar disorder was admitted to the hospital for elective right hip total arthroplasty. Patient is status post surgery postoperative day 1. Blood pressure is elevated postoperatively with up to 190/90 mmHg. Patient is currently complaining of pain. Requesting 1 more dose of pain medications. No complaints of chest pain or shortness of breath. No cough or sputum production. No headache or dizziness or lightheadedness. No fever no chills. Laboratory data showed WBC 13.2 hemoglobin 8.6 and platelets 266 Blood sugar is 258. Review of Systems Constitutional: Patient denies any fever or chills . No generalized weakness or weight loss. Abdomen: Patient denied nausea vomiting and diarrhea and abdominal pain. Cardiovascular: Patient denies any chest pain or short of breath no palpitations. Respiratory: patient denied any cough is from production. No shortness of breath Neurologic: Patient denied any numbness or tingling headache. Musculoskeletal: Patient denies any complaints of joint swelling or deformity. Complains of right hip pain. Skin: Negative Psychiatric: Negative Endocrine: No heat or cold intolerance. No recent weight gain. Genitourinary: No dysuria or hematuria. All other 14 point ROS negative except the above Past Medical History Past Medical History: Asthma, COPD, Diabetes Mellitus, GERD/Reflux, Hyperlipidemia, Hypertension, Musculoskeletal Disorder, Osteoarthritis (OA) Additional Past Medical History / Comment(s): "Palpitations occasionally". Hemorrhoids, hx colon polyps. "Lumbar/sacral thinning discs". "Sores all over my body but most on left side, not sure what they are, Dr gave me Cortisone cream but hasn't helped, have had them for over a month, look like zits, they are itchy and if I pop them slightly discolored pus comes out". "Recent fall ( 2), seen in ER and everything checked out ok but I did injure right knee and right hip, had already suffered from chronic back pain but it has gotten a lot worse, I can hardly walk, using a walker". History of Any Multi-Drug Resistant Organisms: None Reported Past Surgical History: Hernia Repair, Orthopedic Surgery, Tonsillectomy Additional Past Surgical History / Comment(s): Left knee surgery, surgery for undescended testicles, COLONOSCOPY,umbilical hernia repair. Past Anesthesia/Blood Transfusion Reactions: No Reported Reaction Past Psychological History: Bipolar Smoking Status: Never smoker Past Alcohol Use History: Occasional Past Drug Use History: Marijuana Additional Drug Use History / Comment(s): Marijuana use once a day. Aware no use 24 hrs prior to procedure. - Past Family History Father Family Medical History: Cancer Additional Family Medical History / Comment(s): Pancreatic cancer. Mother Additional Family Medical History / Comment(s): "Stent in heart, had blood clots." Medications and Allergies Home Medications Medication Instructions Recorded Confirmed Type Atorvastatin [Lipitor] 80 mg PO HS 10/04/21 02/09/22 History Budesonide/Formoterol Fumarate 2 puff INHALATION BID PRN 10/04/21 02/09/22 History [Symbicort 160-4.5 Mcg Inhaler] FLUoxetine HCL [PROzac] 40 mg PO QAM 10/04/21 02/09/22 History Linagliptin [Tradjenta] 5 mg PO QAM 10/04/21 02/09/22 History Losartan/Hydrochlorothiazide 1 tab PO QAM 10/04/21 02/09/22 History [Losartan-Hctz 100-25 mg Tab] Omeprazole 20 mg PO QAM 10/04/21 02/09/22 History metFORMIN HCL [Glucophage] 1,000 mg PO BID 10/04/21 02/09/22 History Cariprazine HCl [Vraylar] 6 mg PO HS 01/31/22 02/09/22 History HYDROcodone/APAP 7.5-325MG [[place] 1 - 2 tab PO TID PRN 01/31/22 02/09/22 History 7.5-325] Insulin Degludec [Tresiba] 30 units SQ HS 01/31/22 02/09/22 History Aspirin 81 mg PO BID 30 Days #60 tab 02/09/22 Rx Diclofenac Sodium [Voltaren] 75 mg PO BID 30 Days #60 tab 02/09/22 Rx Docusate [Colace] 100 mg PO BID #60 capsule 02/09/22 Rx Doxycycline Monohydrate 100 mg PO BID 14 Days #28 cap 02/09/22 Rx Omeprazole 40 mg PO DAILY 30 Days #30 cap 02/09/22 Rx oxyCODONE-APAP 5-325MG [Percocet 1 tab PO Q4HR PRN #30 tab 02/11/22 Rx 5-325 mg] Allergies Allergy/AdvReac Type Severity Reaction Status Date / Time empagliflozin Allergy High blood Verified 02/09/22 06:53 [From Jardiance] sugar Penicillins Allergy Rash/Hives Verified 02/09/22 06:53 Physical Exam Vitals: Vital Signs Temp Pulse Resp BP Pulse Ox 02/10/22 08:00 98.0 F 98 16 169/76 96 02/10/22 02:00 99.8 F H 95 16 115/67 96 02/09/22 19:12 99.5 F 103 H 17 140/79 91 L 02/09/22 14:15 104 H 18 144/87 96 02/09/22 13:45 100 18 143/82 95 02/09/22 13:15 99 18 153/89 94 L 02/09/22 12:46 109 H 18 166/87 93 L 02/09/22 12:15 102 H 18 147/90 93 L 02/09/22 12:03 98 18 144/82 93 L 02/09/22 11:47 103 H 16 141/89 94 L 02/09/22 11:32 109 H 16 140/91 95 02/09/22 11:18 98 18 151/89 94 L 02/09/22 11:03 105 H 16 143/82 98 02/09/22 10:48 108 H 16 152/73 99 02/09/22 10:33 91 16 190/97 100 Intake and Output 02/09/22 02/10/22 02/10/22 22:59 06:59 14:59 Intake Total 1200 120 Output Total 660 Balance 1200 -660 120 Intake: Intake, IV Titration 650 Amount Sodium Chloride 0.9% 1, 600 000 ml @ 75 mls/hr IV . [id number] [facility] Rx#:[id number] ceFAZolin 2 gm In Sodium 50 Chloride 0.9% 50 ml @ 100 mls/hr IVPB Q8HR [facility] Rx# :[id number] Oral 550 120 Output: Drainage 360 Right Hip 360 Urine 300 Other: # Voids 3 PHYSICAL EXAMINATION: Patient is lying in the bed comfortably, no acute distress, awake alert and oriented.. HEENT: Normocephalic. Neck is supple. Pupils reactive. Nostrils clear. Oral cavity is moist. Neck reveals no JVD, carotid bruits, or thyromegaly. CHEST EXAMINATION: Trachea is central. Symmetrical expansion. Bibasilar diminished sounds. No wheezing and nonlabored breathing.. CARDIAC: Normal S1, S2 with no gallops. No murmurs ABDOMEN: Soft. Bowel sounds normal. No organomegaly. No abdominal bruits. Extremities: reveal no edema. No clubbing or cyanosis Neurologically awake, alert, oriented x3 with well-coordinated movements. No focal deficits noted Skin: No rash or skin lesions. Psychiatric: Coperative. Nonsuicidal Musculoskeletal: No joint swelling or deformity. Normal range of motion. Results CBC & Chem 7: 02/10/22 04:43 02/11/22 04:30 Labs: Abnormal Lab Results - Last 24 Hours (Table) 02/09/22 02/09/22 02/09/22 Range/Units 11:30 16:45 20:53 WBC (4.50-10.00) X 10*3/uL RBC (4.40-5.60) X 10*6/uL Hgb (13.0-17.0) g/dL Hct (39.6-50.0) % MCHC (32.0-37.0) g/dL Neutrophils # (1.80-7.70) X 10*3/uL Monocytes # (0.20-1.00) X 10*3/uL Eosinophils # (0.04-0.35) X 10*3/uL POC Glucose (mg/dL) 232 H 210 H 258 H (70-110) mg/dL 02/10/22 02/10/22 Range/Units 04:43 07:19 WBC 13.26 H (4.50-10.00) X 10*3/uL RBC 3.02 L (4.40-5.60) X 10*6/uL Hgb 8.6 L (13.0-17.0) g/dL Hct 27.1 L (39.6-50.0) % MCHC 31.7 L (32.0-37.0) g/dL Neutrophils # 9.81 H (1.80-7.70) X 10*3/uL Monocytes # 1.22 H (0.20-1.00) X 10*3/uL Eosinophils # 0.01 L (0.04-0.35) X 10*3/uL POC Glucose (mg/dL) 242 H (70-110) mg/dL Assessment and Plan Assessment: Status post right total hip arthroplasty anterior approach. Postop day 1. Leukocytosis likely due to postsurgical inflammation. Rule out infection. Uncontrolled hypertension likely due to pain. Start back on home blood pressure medications and monitor closely. Asthma/COPD not in exacerbation. Diabetes type 2 continue with insulin regimen. GERD Hyperlipidemia Osteoarthritis Bipolar disorder Daily marijuana use DVT prophylaxis Plan: Patient will be current on pain medications, bowel regimen and encourage incentive spirometry. Patient will be continued home blood pressure medications losartan and hydrochlorothiazide is on hold. Continue with insulin sliding scale for better blood sugar control. Continue with duo nebs and follow-up closely. Further recommendations based on the clinical course. Thank you for your consult. Time with Patient: Greater than 30
[2022-02-11 07:05] LABS: Glucose,Whole Blood 109 mg/dL (70-110)
[2022-02-11] MEDS: INSULIN ASPART (NovoLOG) 100 UNIT/ML VIAL SQ SCH ×4 (07:16→20:51)
--- NOTE | 2022-02-11 08:47 | P.PN ---
Subjective Progress Note Date: 02/11/22 The patient is resting comfortably in bed, but reports his pain at 10 out of 10. He states that he is taken [place] chronically for over 10 years. He has no other complaints today. Objective - Vital Signs Vital signs: Vital Signs Temp 98.7 F 02/11/22 08:00 Pulse 84 02/11/22 08:00 Resp 16 02/11/22 08:00 BP 106/63 02/11/22 08:00 Pulse Ox 97 02/11/22 08:00 FiO2 Intake & Output 02/10/22 02/11/22 02/11/22 18:59 06:59 18:59 Intake Total 480 120 Output Total 1560 1105 Balance -1080 -1105 120 Intake: Oral 480 120 Output: Drainage 260 155 Right Hip 260 155 Urine 1300 950 Other: Voiding Method Toilet Toilet Urinal Urinal - Exam The patient appears to be comfortable in bed. He is no apparent distress and is alert and easily able to converse with me. Examination of the right hip shows a clean-appearing dressing. The drain was pulled without difficulty. The thigh and calf are soft. Both hips are stiff and there is mild pain with passive range of motion. Motor and sensory function are intact. - Labs CBC & Chem 7: 02/10/22 04:43 Labs: Abnormal Lab Results - Last 24 Hours (Table) 02/10/22 02/10/22 02/10/22 Range/Units 04:43 11:01 16:12 WBC 13.26 H (4.50-10.00) X 10*3/uL RBC 3.02 L (4.40-5.60) X 10*6/uL Hgb 8.6 L (13.0-17.0) g/dL Hct 27.1 L (39.6-50.0) % MCHC 31.7 L (32.0-37.0) g/dL Neutrophils # 9.81 H (1.80-7.70) X 10*3/uL Monocytes # 1.22 H (0.20-1.00) X 10*3/uL Eosinophils # 0.01 L (0.04-0.35) X 10*3/uL POC Glucose (mg/dL) 268 H 190 H (70-110) mg/dL 02/10/22 Range/Units 21:38 WBC (4.50-10.00) X 10*3/uL RBC (4.40-5.60) X 10*6/uL Hgb (13.0-17.0) g/dL Hct (39.6-50.0) % MCHC (32.0-37.0) g/dL Neutrophils # (1.80-7.70) X 10*3/uL Monocytes # (0.20-1.00) X 10*3/uL Eosinophils # (0.04-0.35) X 10*3/uL POC Glucose (mg/dL) 269 H (70-110) mg/dL Assessment and Plan Assessment: Postoperative day #2 status post right direct anterior total hip arthroplasty Chronic pain on chronic narcotics for over 10 years Type 2 diabetes Plan: 1. Weight-bear as tolerated right lower extremity 2. PT for gait training and mobilization 3. DVT prophylaxis with aspirin twice daily 4. Doxycycline for low-dose and about expression 5. Have changed pain regimen from [place] to Percocet 6. Dispo: We will send the patient is today with his therapy and his pain control. We will tentatively plan for discharge home today if his pain is controlled on Percocet. If he needs to stay another night we will get a pain consultation. The patient understands difficulty and perioperative pain control due to his long-term necrotic use prior to surgery Time with Patient: Greater than 30
--- NOTE | 2022-02-11 08:48 | P.DS ---
Providers Date of admission: 02/09/2022 Attending physician: Toro Shipman Consults: 02/09/22 21:33 Consult Physician Routine Consulting Provider: Colin Vasques Consult Reason/Comments: medical management Do you want consulting provider notified?: Yes Primary care physician: Palmira Gutierrez Hospital Course: The patient underwent an uncomplicated right total hip replacement on 02/09/2022. He was admitted under my care postoperatively. Internal medicine was consulted for perioperative medical management including blood sugars. The patient has a history of chronic narcotic use and had some difficulty with pain control following surgery. He was transitioned from IV to oral pain medication. Had several oral narcotics prescribed. He did relatively well with physical therapy was cleared for discharge home. Plan - Discharge Summary Discharge Rx Participant: Yes New Discharge Prescriptions: New Docusate [Colace] 100 mg PO BID #60 capsule Doxycycline Monohydrate 100 mg PO BID 14 Days #28 cap Omeprazole 40 mg PO DAILY 30 Days #30 cap HYDROcodone/APAP 7.5-325MG [[place] 7.5-325] 1 tab PO Q6HR PRN #18 tab PRN Reason: Pain Aspirin 81 mg PO BID 30 Days #60 tab Diclofenac Sodium [Voltaren] 75 mg PO BID 30 Days #60 tab No Action Budesonide/Formoterol Fumarate [Symbicort 160-4.5 Mcg Inhaler] 2 puff INHALATION BID PRN PRN Reason: Shortness Of Breath Omeprazole 20 mg PO QAM Losartan/Hydrochlorothiazide [Losartan-Hctz 100-25 mg Tab] 1 tab PO QAM Cariprazine HCl [Vraylar] 6 mg PO HS metFORMIN HCL [Glucophage] 1,000 mg PO BID Linagliptin [Tradjenta] 5 mg PO QAM FLUoxetine HCL [PROzac] 40 mg PO QAM Atorvastatin [Lipitor] 80 mg PO HS HYDROcodone/APAP 7.5-325MG [[place] 7.5-325] 1 - 2 tab PO TID PRN PRN Reason: Pain Insulin Degludec [Tresiba] 30 units SQ HS Discharge Medication List Atorvastatin [Lipitor] 80 mg PO HS 10/04/21 [History] Budesonide/Formoterol Fumarate [Symbicort 160-4.5 Mcg Inhaler] 2 puff INHALATION BID PRN 10/04/21 [History] FLUoxetine HCL [PROzac] 40 mg PO QAM 10/04/21 [History] Linagliptin [Tradjenta] 5 mg PO QAM 10/04/21 [History] Losartan/Hydrochlorothiazide [Losartan-Hctz 100-25 mg Tab] 1 tab PO QAM 10/04/21 [History] Omeprazole 20 mg PO QAM 10/04/21 [History] metFORMIN HCL [Glucophage] 1,000 mg PO BID 10/04/21 [History] Cariprazine HCl [Vraylar] 6 mg PO HS 01/31/22 [History] HYDROcodone/APAP 7.5-325MG [[place] 7.5-325] 1 - 2 tab PO TID PRN 01/31/22 [History] Insulin Degludec [Tresiba] 30 units SQ HS 01/31/22 [History] Aspirin 81 mg PO BID 30 Days #60 tab 02/09/22 [Rx] Diclofenac Sodium [Voltaren] 75 mg PO BID 30 Days #60 tab 02/09/22 [Rx] Docusate [Colace] 100 mg PO BID #60 capsule 02/09/22 [Rx] Doxycycline Monohydrate 100 mg PO BID 14 Days #28 cap 02/09/22 [Rx] HYDROcodone/APAP 7.5-325MG [[place] 7.5-325] 1 tab PO Q6HR PRN #18 tab 02/09/22 [Rx] Omeprazole 40 mg PO DAILY 30 Days #30 cap 02/09/22 [Rx] Follow up Appointment(s)/Referral(s): [facility] [NON-STAFF] - 1-2 Days Toro Shipman MD [Medical Doctor] - 2 Weeks Activity/Diet/Wound Care/Special Instructions: Weight bear to tolerance on operative extremity with a walker. Keep operative dressings intact until follow-up in the office. Call the office if dressing becomes saturated or falls off. May shower over dressing. Take pain medications as prescribed. If you need additional pain medication, contact Dr. Gutierrez. Take aspirin 81mg BID x 4 weeks for blood clot prevention. Take antibiotics as prescribed for wound healing prophylaxis. Follow-up in the office in two weeks with Dr. Shipman. Call the office with any questions or concerns, Discharge Disposition: HOME WITH HOME HEALTH SERVICES
[2022-02-11] MEDS: SYMBICORT 160-4.5 MCG INHALER INHALATION SCH ×2 (09:04→20:55)
[2022-02-11 09:41] LABS: African American GFR (CKD) 67.8 (60.0-200.0); Anion Gap 9.8 mmol/L (10.00-18.00); BUN/Creat Ratio 14.15 Ratio (12.00-20.00); Blood Urea Nitrogen 18.4 mg/dL (9.0-27.0); Carbon Dioxide 24.2 mmol/L (20.0-27.5); Non-African American GFR(CKD) 58.5 (60.0-200.0); Potassium 3.7 mmol/L (3.5-5.5)
[2022-02-11] MEDS: metFORMIN 500 MG TAB PO SCH ×2 (09:41→20:01)
[2022-02-11] MEDS: FLUoxetine HCL 20 MG CAP PO SCH (09:42)
[2022-02-11] MEDS: oxyCODONE-APAP 5-325MG 1 EACH TAB PO PRN (09:42)
[2022-02-11] MEDS: LINAGLIPTIN 5 MG TABLET PO SCH (09:42)
[2022-02-11] MEDS: ASPIRIN 81 MG PO SCH ×2 (09:43→20:02)
[2022-02-11] MEDS: LOSARTAN 50 MG TAB PO SCH (09:43)
[2022-02-11] MEDS: PANTOPRAZOLE 40 MG TABLET PO SCH (09:43)
[2022-02-11] MEDS: SODIUM CHLORIDE 0.9% 1,000 ML IV SCH (10:56)
[2022-02-11 11:09] LABS: Glucose,Whole Blood 169 mg/dL (70-110)
[2022-02-11] MEDS: HYDROmorphone 0.5 MG/0.5 ML SYRINGE IVP PRN ×2 (11:49→20:00)
[2022-02-11] MEDS ORDERED: CYCLOBENZAPRINE 5 MG TAB PO PRN (14:42)
[2022-02-11 16:22] LABS: Glucose,Whole Blood 148 mg/dL (70-110)
--- NOTE | 2022-02-11 16:25 | XR ---
EXAMINATION TYPE: XR Hip Limited RT DATE OF EXAM: 02/11/2022 COMPARISON: 02/09/2022 HISTORY: Pain TECHNIQUE: Single view FINDINGS: There is right hip prosthesis. Components are in anatomic position. No fracture seen. IMPRESSION: No complicating process seen. No change in position compared to recent exam.
[2022-02-11] MEDS: ATORVASTATIN 80 MG TAB PO SCH (20:01)
[2022-02-11] MEDS: SENNOSIDES-DOCUSATE SODIUM 1 EACH TAB PO SCH (20:04)
[2022-02-11 20:08] LABS: Glucose,Whole Blood 202 mg/dL (70-110)
[2022-02-11] MEDS: PATIENT'S OWN (Cariprazine Hcl [Vraylar] 1.5 MG Capsule) PO SCH (20:10)
[2022-02-11] MEDS: INSULIN DETEMIR (LEVEMIR) 100 UNIT/ML SYR SQ SCH ×2 (20:51)
[2022-02-12 06:56] LABS: Glucose,Whole Blood 77 mg/dL (70-110)
--- NOTE | 2022-02-12 07:42 | P.PN ---
Subjective The patient is resting comfortably in bed. He continues to have pain in his hip but appears comfortable. Objective - Vital Signs Vital signs: Vital Signs Temp 98.7 F 02/12/22 02:00 Pulse 84 02/12/22 02:00 Resp 18 02/11/22 20:10 BP 112/72 02/12/22 02:00 Pulse Ox 98 02/12/22 02:00 FiO2 Intake & Output 02/11/22 02/12/22 02/12/22 18:59 06:59 18:59 Intake Total 240 Output Total 800 350 Balance -560 -350 Intake: Oral 240 Output: Urine 800 350 Other: Voiding Method Toilet Urinal # Voids 1 - Exam The patient is resting comfortably in his bed at the time of my evaluation. He was actually sleeping. After being awoken he stated that he continue to have 10 out of 10 pain. His thigh and calf are soft. Motor and sensory function are intact. There is minimal swelling in the leg. - Labs CBC & Chem 7: 02/10/22 04:43 02/11/22 04:30 Labs: Abnormal Lab Results - Last 24 Hours (Table) 02/11/22 02/11/22 02/11/22 Range/Units 04:30 11:07 16:21 Anion Gap 9.80 L (10.00-18.00) mmol/L Est GFR (CKD-EPI)NonAf 58.5 L (60.0-200.0) Glucose 131 H (70-110) mg/dL POC Glucose (mg/dL) 169 H 148 H (70-110) mg/dL Calcium 8.0 L (8.7-10.3) mg/dL 02/11/22 Range/Units 20:04 Anion Gap (10.00-18.00) mmol/L Est GFR (CKD-EPI)NonAf (60.0-200.0) Glucose (70-110) mg/dL POC Glucose (mg/dL) 202 H (70-110) mg/dL Calcium (8.7-10.3) mg/dL Assessment and Plan Assessment: Postoperative day #3 status post right direct anterior total hip arthroplasty Chronic pain Type 2 diabetes Plan: Plan as outlined previously. The patient continues to have pain likely related to his chronic [place] use of over 10 years. X-ray of the right hip yesterday showed no interval changes and no fracture. He was changed from [place] to Percocet and given a prescription for Flexeril. A pain management consult was placed for assistance. We'll plan on discharge home today after he is seen by pain management and when he passes physical therapy.
[2022-02-12 07:54] VITALS: RESP 16
[2022-02-12] MEDS: INSULIN ASPART (NovoLOG) 100 UNIT/ML VIAL SQ SCH ×3 (07:58→18:50)
[2022-02-12] MEDS: LOSARTAN 50 MG TAB PO SCH (08:02)
[2022-02-12] MEDS: ASPIRIN 81 MG PO SCH (08:02)
[2022-02-12] MEDS: PANTOPRAZOLE 40 MG TABLET PO SCH (08:03)
[2022-02-12] MEDS: metFORMIN 500 MG TAB PO SCH (08:03)
[2022-02-12] MEDS: LINAGLIPTIN 5 MG TABLET PO SCH (08:03)
[2022-02-12] MEDS: oxyCODONE-APAP 5-325MG 1 EACH TAB PO PRN ×2 (08:03→15:27)
[2022-02-12] MEDS: FLUoxetine HCL 20 MG CAP PO SCH (08:03)
[2022-02-12] MEDS: SYMBICORT 160-4.5 MCG INHALER INHALATION SCH ×2 (08:49→19:30)
[2022-02-12 09:35] LABS: Basophils # (A) 0.02 X 10*3/uL (0.00-0.10); Basophils % (A) 0.2 %; Eosinophils # (A) 0.08 X 10*3/uL (0.04-0.35); Eosinophils % (A) 0.7 %; HCT 24.2 % (39.6-50.0); HGB 7.9 g/dL (13.0-17.0); Immature Grans, Automated 0.4 %; Lymphocytes # (A) 1.65 X 10*3/uL (0.90-5.00); Lymphocytes % (A) 15.2 %; MCHC 32.6 g/dL (32.0-37.0); Mean Platelet Volume 10.5 fL (9.5-12.2); Monocytes # (A) 0.96 X 10*3/uL (0.20-1.00); Monocytes % (A) 8.8 %; NRBC Per 100 WBC 0 /100 WBCS (0.0-0.0); Neutrophils # (A) 8.12 X 10*3/uL (1.80-7.70); Neutrophils % (A) 74.7 %; Platelet Count 257 X 10*3/uL (140-440); RBC 2.72 X 10*6/uL (4.40-5.60); RDW 14.1 % (11.5-14.5); WBC 10.87 X 10*3/uL (4.50-10.00)
--- NOTE | 2022-02-12 10:54 | P.PN ---
Subjective Progress Note Date: 02/11/22 Patient is a 61-year-old male with a known history of asthma/COPD, diabetes type 2 insulin-dependent, hypertension, hyperlipidemia, osteoarthritis and history of back pain and bipolar disorder was admitted to the hospital for elective right hip total arthroplasty. Patient is status post surgery postoperative day 1. Blood pressure is elevated postoperatively with up to 190/90 mmHg. Patient is currently complaining of pain. Requesting 1 more dose of pain medications. No complaints of chest pain or shortness of breath. No cough or sputum production. No headache or dizziness or lightheadedness. No fever no chills. Laboratory data showed WBC 13.2 hemoglobin 8.6 and platelets 266 Blood sugar is 258. 02/11/2022 Patient is currently lying in bed. Still complains of right hip pain. No fever no chills. No leg swelling. Denied any complaints of chest pain or shortness breath. Patient is being continued on pain management and bowel regimen. No nausea vomiting abdominal pain and diarrhea. Patient will be continued on PT OT and anticipate discharge to rehab. Laboratory data showed sodium 134 potassium 3.7 chloride 101 bicarb is 24.2 BUN 18.4 and creatinine 1.3 and calcium 8.0. Current medications reviewed. Objective - Vital Signs Vital signs: Vital Signs Temp 98.7 F 02/11/22 08:00 Pulse 84 02/11/22 08:00 Resp 16 02/11/22 08:00 BP 106/63 02/11/22 08:00 Pulse Ox 97 02/11/22 08:00 FiO2 Intake & Output 02/10/22 02/11/22 02/11/22 18:59 06:59 18:59 Intake Total 480 120 Output Total 1560 1105 Balance -1080 -1105 120 Intake: Oral 480 120 Output: Drainage 260 155 Right Hip 260 155 Urine 1300 950 Other: Voiding Method Toilet Toilet Urinal Urinal - Exam PHYSICAL EXAMINATION: Patient is lying in the bed comfortably, no acute distress, awake alert and oriented.. HEENT: Normocephalic. Neck is supple. Pupils reactive. Nostrils clear. Oral cavity is moist. Neck reveals no JVD, carotid bruits, or thyromegaly. CHEST EXAMINATION: Trachea is central. Symmetrical expansion. Basilar diminished sounds. Lung chau clear to auscultation and percussion. CARDIAC: Normal S1, S2 with no gallops. No murmurs ABDOMEN: Soft. Bowel sounds normal. No organomegaly. No abdominal bruits. Extremities: reveal no edema. No clubbing or cyanosis Neurologically awake, alert, oriented x3 with well-coordinated movements. No focal deficits noted Skin: No rash or skin lesions. Psychiatric: Coperative. Nonsuicidal Musculoskeletal: No joint swelling or deformity. Normal range of motion. Right hip surgical site is intact. - Labs CBC & Chem 7: 02/12/22 04:21 02/11/22 04:30 Labs: Abnormal Lab Results - Last 24 Hours (Table) 02/10/22 02/10/22 02/11/22 Range/Units 16:12 21:38 04:30 Anion Gap 9.80 L (10.00-18.00) mmol/L Est GFR (CKD-EPI)NonAf 58.5 L (60.0-200.0) Glucose 131 H (70-110) mg/dL POC Glucose (mg/dL) 190 H 269 H (70-110) mg/dL Calcium 8.0 L (8.7-10.3) mg/dL 02/11/22 Range/Units 11:07 Anion Gap (10.00-18.00) mmol/L Est GFR (CKD-EPI)NonAf (60.0-200.0) Glucose (70-110) mg/dL POC Glucose (mg/dL) 169 H (70-110) mg/dL Calcium (8.7-10.3) mg/dL Assessment and Plan Assessment: Status post right total hip arthroplasty anterior approach. Postop day 2. Leukocytosis likely due to postsurgical inflammation. Rule out infection. Uncontrolled hypertension likely due to pain. Start back on home blood pressure medications and monitor closely. Asthma/COPD not in exacerbation. Diabetes type 2 continue with insulin regimen. GERD Hyperlipidemia Osteoarthritis Bipolar disorder Daily marijuana use DVT prophylaxis Plan: Patient will be current on pain medications, bowel regimen and encourage incent feli spirometry. Patient will be continued home blood pressure medications losartan and hydrochlorothiazide is on hold. Continue with insulin sliding scale for better blood sugar control. Continue with duo nebs and follow-up closely. Further recommendations based on the clinical course. PTOT and possible discharge to rehab. Time with Patient: Greater than 30
[2022-02-12 11:26] LABS: Glucose,Whole Blood 162 mg/dL (70-110)
--- NOTE | 2022-02-12 15:39 | P.PAINPG ---
Objective - Vital Signs Vital signs: Vital Signs Temp 98.0 F 02/12/22 07:52 Pulse 87 02/12/22 07:52 Resp 16 02/12/22 07:52 BP 110/62 02/12/22 07:52 Pulse Ox 97 02/12/22 07:52 FiO2 Intake & Output 02/11/22 02/12/22 02/12/22 18:59 06:59 18:59 Intake Total 240 120 Output Total 800 350 Balance -560 -350 120 Intake: Oral 240 120 Output: Urine 800 350 Other: Voiding Method Toilet Urinal # Voids 1 - Labs CBC & Chem 7: 02/12/22 04:21 02/11/22 04:30 Labs: Abnormal Lab Results - Last 24 Hours (Table) 02/10/22 02/11/22 02/11/22 Range/Units 04:43 16:21 20:04 WBC (4.50-10.00) X 10*3/uL RBC (4.40-5.60) X 10*6/uL Hgb (13.0-17.0) g/dL Hct (39.6-50.0) % Neutrophils # (1.80-7.70) X 10*3/uL POC Glucose (mg/dL) 148 H 202 H (70-110) mg/dL Hemoglobin A1c 7.4 H (0.0-6.0) % 02/12/22 02/12/22 Range/Units 04:21 11:25 WBC 10.87 H (4.50-10.00) X 10*3/uL RBC 2.72 L (4.40-5.60) X 10*6/uL Hgb 7.9 L (13.0-17.0) g/dL Hct 24.2 L (39.6-50.0) % Neutrophils # 8.12 H (1.80-7.70) X 10*3/uL POC Glucose (mg/dL) 162 H (70-110) mg/dL Hemoglobin A1c (0.0-6.0) % PQRS Measure Charge Sheet Comment: HISTORY OF PRESENT ILLNESS: 61 yr old male as a referral from [facility] presents today w severe and intractable R hip pain s/p anterior hip arthroplasty s/p fall. Pt states he normally takes two [place] 7.5/325mg daily at home but his pain s/p surgery is still not controlled even w the addition of Dilaudid IVP at this time. His [place] was discontinued and replaced with Percocet which appears to manage his pain at this time. It is scheduled 2 tabs PO Q6H prn pain, at which time it could be administered after patient awakens from several hours of sleep. Otherwise, it can be given 1 tab PO Q4H prn pain. He has yet to participate in PT. PMH: Asthma, COPD, Diabetes Mellitus, GERD, Hyperlipidemia, HTN, OA PSH: Hernia Repair, Tonsillectomy, L Knee Arthroscopy, Colonoscopy, Umbilical Hernia Repair, Undescended Testicle Surgery in Childhood, R anterior Hip Arthroplasty (Jan 2022) SH: Never smoker, Occasional ETOH use, +Cannabis use FH: Fa- Pancreatic CA. Mo- CAD All: See list Meds: See list REVIEW OF ORGAN SYSTEMS: CONSTITUTIONAL: No fevers or chills. No recent weight loss. NEUROLOGICAL: + numbness and tingling along the distal extremities. No seizure disorders or headaches. MUSCULOSKELETAL: + pain PSYCHIATRIC: Denies current depression or suicidal thoughts. Physical Examinations : Constitutional : Cooperative , not in acute distress . Neurologic : Cranial nerve II to XII intact. No focal neurological deficits. Psychiatric : alert & oriented x 3. Matching mood & appropriate affect. Judgment & insight intact. Musculoskeletal : Cervical Spine Motor strength in the deltoid and biceps: Normal right side. Normal Left side Motor strength biceps and the wrist extensors: Normal right side . Normal left side Motor strength in the triceps muscle: Normal right side. Normal left side Deep tendon reflexes: Normal at the biceps. Normal at Brachioradialis. Normal at triceps Vertebral body tenderness to deep palpation over Cervical facet loading test: positive bilaterally Spurling test: positive bilaterally Neck distraction test: positive bilaterally Jacob sign: positive bilaterally Lumbar spine Motor strength lower extremities ,thigh and legs 5/5 Right side , 5/5 Left side Deep tendon reflexes : Normal Knee Jerk. Normal Ankle Jerk Vertebral body tenderness over Lumbar facet Loading Test: positive Right / positive Left Range of motion of the lumbar spine Flexion 30 degrees, extension 10 degrees Straight Leg Raise test: Left/ Right positive at degree Gopi test: positive right / positive left. Severe tenderness over the Sacroiliac joint on the Right / Left sides Gaenslen test: positive bilaterally Seated flexion test: positive bilaterally. Sacral spine : Severe tenderness over the Sacroiliac joint: right side / left side Range of motion: Flexion of the lumbar spine <60 degrees Range of motion: Extension of the lumbar spine <20 degrees Gaenslen's Test positive Pasquale's Test positive Gopi test: positive right side / left side Thigh Thrust Test Sacral Thrust Test Imaging: R hip x ray from 02/11/22 reviewed Assessment/ Plan : R hip OA, R hip anterior arthroplasty s/p fall Recommendation of adjustments of pain medications. Dilaudid 0.25mg - 1mg IVP Q3H prn pain (severity 1-3, 4-6, 7-10). Pt is not expected to remain on Dilaudid post discharge. [place] is discontinued and replaced with Percocet 5/325mg to take 1 tab Q4H prn pain, or 2 tabs PO Q6H prn pain upon awakening, whichever is most convenient. Risks, benefits discussed and patient verbalized understanding. All questions answered. I have spent greater than 30 minutes on patient care today. Dr Velazquez was available by phone for the evaluation of this patient. The time was used to review the medical records including relevant urine studies and Prescription history (MAPs), review of the available imaging, evaluation and examination of the patient, coordination of care with the medical staff and if applicable referring physicians, as well as creation of the medical record - Pain Location Right Hip Non-Pharmacological Interventions: Position/Reposition, Relaxation Technique Pharmacological Interventions: PRN Medication PQRS Narrative: Do You Want the Pneumonia No Vaccine AT THIS TIME? Blood Pressure [Right Arm 110/62 Supine] Pain Intensity [Right Hip] 9 Pain Intensity 9 Pain Scale Used [Right Hip] Numeric (1 - 10) Pain Scale Used Numeric (1 - 10) Scale Used Numeric (1 - 10) Home Medications: Ambulatory Orders Atorvastatin [Lipitor] 80 mg PO HS 10/04/21 Budesonide/Formoterol Fumarate [Symbicort 160-4.5 Mcg Inhaler] 2 puff INHALATION BID PRN 10/04/21 FLUoxetine HCL [PROzac] 40 mg PO QAM 10/04/21 Linagliptin [Tradjenta] 5 mg PO QAM 10/04/21 Losartan/Hydrochlorothiazide [Losartan-Hctz 100-25 mg Tab] 1 tab PO QAM 10/04/21 Omeprazole 20 mg PO QAM 10/04/21 metFORMIN HCL [Glucophage] 1,000 mg PO BID 10/04/21 Cariprazine HCl [Vraylar] 6 mg PO HS 01/31/22 HYDROcodone/APAP 7.5-325MG [[place] 7.5-325] 1 - 2 tab PO TID PRN 01/31/22 Insulin Degludec [Tresiba] 30 units SQ HS 01/31/22 Aspirin 81 mg PO BID 30 Days #60 tab 02/09/22 Diclofenac Sodium [Voltaren] 75 mg PO BID 30 Days #60 tab 02/09/22 Docusate [Colace] 100 mg PO BID #60 capsule 02/09/22 Doxycycline Monohydrate 100 mg PO BID 14 Days #28 cap 02/09/22 Omeprazole 40 mg PO DAILY 30 Days #30 cap 02/09/22 oxyCODONE-APAP 5-325MG [Percocet 5-325 mg] 1 tab PO Q4HR PRN #30 tab 02/11/22 Controlled Substance Measures - Controlled Substance Measures Is patient prescribed a controlled substance at discharge?: No
[2022-02-12 16:23] VITALS: BP 107/60; PULSE 84; TEMP 97.9
[2022-02-12 16:59] LABS: Glucose,Whole Blood 158 mg/dL (70-110)
--- NOTE | 2022-02-18 22:11 | P.PN ---
Subjective Progress Note Date: 02/12/22 Patient is a 61-year-old male with a known history of asthma/COPD, diabetes type 2 insulin-dependent, hypertension, hyperlipidemia, osteoarthritis and history of back pain and bipolar disorder was admitted to the hospital for elective right hip total arthroplasty. Patient is status post surgery postoperative day 1. Blood pressure is elevated postoperatively with up to 190/90 mmHg. Patient is currently complaining of pain. Requesting 1 more dose of pain medications. No complaints of chest pain or shortness of breath. No cough or sputum production. No headache or dizziness or lightheadedness. No fever no chills. Laboratory data showed WBC 13.2 hemoglobin 8.6 and platelets 266 Blood sugar is 258. 02/11/2022 Patient is currently lying in bed. Still complains of right hip pain. No fever no chills. No leg swelling. Denied any complaints of chest pain or shortness breath. Patient is being continued on pain management and bowel regimen. No nausea vomiting abdominal pain and diarrhea. Patient will be continued on PT OT and anticipate discharge to rehab. Laboratory data showed sodium 134 potassium 3.7 chloride 101 bicarb is 24.2 BUN 18.4 and creatinine 1.3 and calcium 8.0. 02/12/2022 patient is currently resting in the bed. Awake alert and oriented x3. Right hip pain is better. No complaints of chest pain or shortness of breath. No fever no chills. No cough or sputum production. Patient is able to ambulate with physical therapy this morning. No other acute overnight issues. Patient is being discharged home today. Discharge medication reconciliation was done. Laboratory showed WBC count improved to 10.8 hemoglobin 7.9 and platelets 257. Blood sugar is fairly controlled. Current medications reviewed. Objective - Vital Signs Vital signs: Vital Signs Temp 98.0 F 02/12/22 07:52 Pulse 87 02/12/22 07:52 Resp 16 02/12/22 07:52 BP 110/62 02/12/22 07:52 Pulse Ox 97 02/12/22 07:52 FiO2 Intake & Output 02/11/22 02/12/22 02/12/22 18:59 06:59 18:59 Intake Total 240 Output Total 800 350 Balance -560 -350 Intake: Oral 240 Output: Urine 800 350 Other: Voiding Method Toilet Urinal # Voids 1 - Exam PHYSICAL EXAMINATION: Patient is lying in the bed comfortably, no acute distress, awake alert and oriented.. HEENT: Normocephalic. Neck is supple. Pupils reactive. Nostrils clear. Oral cavity is moist. Neck reveals no JVD, carotid bruits, or thyromegaly. CHEST EXAMINATION: Trachea is central. Symmetrical expansion. Basilar diminished sounds. Lung chau clear to auscultation and percussion. CARDIAC: Normal S1, S2 with no gallops. No murmurs ABDOMEN: Soft. Bowel sounds normal. No organomegaly. No abdominal bruits. Extremities: reveal no edema. No clubbing or cyanosis Neurologically awake, alert, oriented x3 with well-coordinated movements. No focal deficits noted Skin: No rash or skin lesions. Psychiatric: Coperative. Nonsuicidal Musculoskeletal: No joint swelling or deformity. Normal range of motion. Right hip surgical site is intact. - Labs CBC & Chem 7: 02/12/22 04:21 02/11/22 04:30 Labs: Abnormal Lab Results - Last 24 Hours (Table) 02/11/22 02/11/22 02/11/22 Range/Units 11:07 16:21 20:04 WBC (4.50-10.00) X 10*3/uL RBC (4.40-5.60) X 10*6/uL Hgb (13.0-17.0) g/dL Hct (39.6-50.0) % Neutrophils # (1.80-7.70) X 10*3/uL POC Glucose (mg/dL) 169 H 148 H 202 H (70-110) mg/dL 02/12/22 Range/Units 04:21 WBC 10.87 H (4.50-10.00) X 10*3/uL RBC 2.72 L (4.40-5.60) X 10*6/uL Hgb 7.9 L (13.0-17.0) g/dL Hct 24.2 L (39.6-50.0) % Neutrophils # 8.12 H (1.80-7.70) X 10*3/uL POC Glucose (mg/dL) (70-110) mg/dL Assessment and Plan Assessment: Status post right total hip arthroplasty anterior approach. Postop day 2. Leukocytosis likely due to postsurgical inflammation. Rule out infection. Uncontrolled hypertension likely due to pain. Start back on home blood pressure medications and monitor closely. Asthma/COPD not in exacerbation. Diabetes type 2 continue with insulin regimen. GERD Hyperlipidemia Osteoarthritis Bipolar disorder Daily marijuana use DVT prophylaxis Plan: Patient will be current on pain medications, bowel regimen and encourage in centive spirometry. Patient will be continued home blood pressure medications losartan and hydrochlo rothiazide is on hold. Continue with insulin sliding scale for better blood sugar control. Continue with duo nebs and follow-up with PCP
== END 2022-02-12 19:47 ==
LOC: OR 05:49 → 4SSUR 10:08 → OR 02-12 07:00 → 4SSUR 02-12 07:00
PROVIDERS: ADMIT Orthopaedic Surgery; ATTEND Orthopaedic Surgery
DX: M16.51 Unilateral post-traumatic osteoarthritis, right hip (principal); S72.001S Fracture of unspecified part of neck of right femur, sequela; X58.XXXS Exposure to other specified factors, sequela; I10 Essential (primary) hypertension; E78.5 Hyperlipidemia, unspecified; E11.9 Type 2 diabetes mellitus without complications; K30 Functional dyspepsia; H91.90 Unspecified hearing loss, unspecified ear; F31.9 Bipolar disorder, unspecified; Z97.3 Presence of spectacles and contact lenses; Z79.84 Long term (current) use of oral hypoglycemic drugs; Z79.1 Long term (current) use of non-steroidal anti-inflammatories (NSAID); Z79.891 Long term (current) use of opiate analgesic; Z79.899 Other long term (current) drug therapy; Z88.8 Allergy status to other drugs, medicaments and biological substances; Z98.890 Other specified postprocedural states; Z82.49 Family history of ischemic heart disease and other diseases of the circulatory system; J44.9 Chronic obstructive pulmonary disease, unspecified; D72.829 Elevated white blood cell count, unspecified; K21.9 Gastro-esophageal reflux disease without esophagitis; Z79.82 Long term (current) use of aspirin; Z79.51 Long term (current) use of inhaled steroids; Z79.4 Long term (current) use of insulin; Z80.0 Family history of malignant neoplasm of digestive organs; Z87.19 Personal history of other diseases of the digestive system
CPT/HCPCS: 27130; 94640 ×3; 97116; 97163; 64999; 86900; 86901; 88305; 85025 ×2; 86850; 88311; 83036; 73501; G0378; C1776; J2250; J0171; J0330; J1100; J2710; J0690 ×2; J2405; J3010; J1885 ×2; J1170 ×3; J2795; J2704; J0735; J2001

== ENCOUNTER → 2022-08-16 | Outpatient (CLI) | payer MEDICARE, OTHER ==
[2022-08-16 17:22] LABS: HCT 34.5 % (39.0-53.0); HGB 11.2 gm/dL (13.0-17.5); MCH 27.9 pg (25.0-35.0); MCHC 32.6 g/dL (31.0-37.0); MCV 85.5 fL (80.0-100.0); Mean Platelet Volume 7.5; Platelet Count 328 k/uL (150-450); RBC 4.03 m/uL (4.30-5.90); RDW 15.5 % (11.5-15.5); WBC 9.9 k/uL (3.8-10.6)
[2022-08-16 17:30] LABS: Albumin 4.2 g/dL (3.5-5.0); Partial Thromboplastin Time 22.3 sec (22.0-30.0); Potassium 4.4 mmol/L (3.5-5.1); Prothrombin Time 10.6 sec (9.0-12.0); Total Bilirubin 0.5 mg/dL (0.2-1.3)
[2022-08-17 04:10] LABS: Appearance,Urine Clear (Clear); Bilirubin,Urine Negative (Negative); Blood,Urine Negative (Negative); Color,Urine Yellow (Yellow); Ketones,Urine Negative (Negative); Nitrite,Urine Negative (Negative); Urobilinogen,Urine 0.2 (0.2,1.0)
== END | disposition home or self-care (01) ==
LOC: LABPAT 15:50
PROVIDERS: ATTEND Orthopaedic Surgery
DX: Z01.818 Encounter for other preprocedural examination (principal); M16.12 Unilateral primary osteoarthritis, left hip; R94.31 Abnormal electrocardiogram [ECG] [EKG]
CPT/HCPCS: 80053; 81003; 83036; 85027; 85610; 85730; 87070; 93005

== ENCOUNTER 2022-08-21 16:53 | Observation (INO) | payer MEDICARE, OTHER ==
[2022-08-21 17:17] LABS: Basophils % (A) 0 %; Eosinophils # (A) 0.2 k/uL (0-0.7); Eosinophils % (A) 2 %; HCT 32.5 % (39.0-53.0); HGB 10.7 gm/dL (13.0-17.5); Lymphocytes % (A) 19 %; MCH 27.8 pg (25.0-35.0); MCV 84.2 fL (80.0-100.0); Mean Platelet Volume 7.2; Monocytes # (A) 0.5 k/uL (0-1.0); Monocytes % (A) 4 %; Neutrophils # (A) 7.9 k/uL (1.3-7.7); Neutrophils % (A) 73 %; Platelet Count 308 k/uL (150-450); RBC 3.86 m/uL (4.30-5.90); RDW 15.4 % (11.5-15.5); WBC 10.8 k/uL (3.8-10.6)
--- NOTE | 2022-08-21 17:23 | ED ---
Chest Pain HPI - General Chief Complaint: Chest Pain Stated Complaint: Chest Pain Time Seen by Provider: 08/21/22 16:57 Source: EMS Mode of arrival: EMS Limitations: no limitations - History of Present Illness Initial Comments: This is a 61-year-old male DF today. He presents today for evaluation of multiple complaints hip pain chest pain shortness of breath elevated blood sugar. Patient states he is scheduled for outpatient hip replacements also his blood sugars running too high. Patient presents today for evaluation of chest pain generalized left-sided chest pain no significant known history of heart disease. Patient is unsure blood sugars been running high patient also complains of the chest pain being worse with exertion he has noted this for quite some time although significantly worse today MD Complaint: chest pain -: week(s) Onset: during rest, during exertion Pain Location: substernal, left chest Pain Radiation: none Severity: moderate Severity scale (1-10): 4 Quality: tightness Consistency: intermittent Improves With: nothing Worsens With: exertion Other Symptoms: palpitations Treatments Prior to Arrival: none - Related Data Home Medications Medication Instructions Recorded Confirmed Atorvastatin [Lipitor] 80 mg PO HS 10/04/21 08/21/22 Budesonide/Formoterol Fumarate 2 puff INHALATION RT-BID PRN 10/04/21 08/21/22 [Symbicort 160-4.5 Mcg Inhaler] FLUoxetine HCL [PROzac] 40 mg PO DAILY 10/04/21 08/21/22 Linagliptin [Tradjenta] 5 mg PO DAILY 10/04/21 08/21/22 Losartan/Hydrochlorothiazide 1 tab PO DAILY 10/04/21 08/21/22 [Losartan-Hctz 100-25 mg Tab] Omeprazole 20 mg PO DAILY 10/04/21 08/21/22 HYDROcodone/APAP 7.5-325MG [[place] 1 tab PO TID PRN 01/31/22 08/21/22 7.5-325] Insulin Degludec [Tresiba] 30 units SQ HS 01/31/22 08/21/22 Cariprazine HCl [Vraylar] 3 mg PO HS 08/21/22 08/21/22 Magnesium Oxide [Mag-Ox] 400 mg PO DAILY 08/21/22 08/21/22 Turmeric Root Extract [Turmeric] 500 mg PO DAILY 08/21/22 08/21/22 metFORMIN HCL [Glucophage] 1,000 mg PO BID 08/21/22 08/21/22 Previous Rx's Medication Instructions Recorded Diclofenac Sodium [Voltaren] 75 mg PO BID 30 Days #60 tab 02/09/22 Allergies Allergy/AdvReac Type Severity Reaction Status Date / Time empagliflozin Allergy High blood Verified 08/21/22 17:48 [From Jardiance] sugar Penicillins Allergy Rash/Hives Verified 08/21/22 17:48 Review of Systems ROS Statement: Those systems with pertinent positive or pertinent negative responses have been documented in the HPI. ROS Other: All systems not noted in ROS Statement are negative. EKG Findings - EKG Comments: EKG Findings:: EKG is sinus 74 [place] 199 QRS 12 QTc 4:31 Past Medical History Past Medical History: Asthma, COPD, Diabetes Mellitus, Fibromyalgia, GE RD/Reflux, Hyperlipidemia, Hypertension, Musculoskeletal Disorder, Osteoarthritis (OA) Additional Past Medical History / Comment(s): Hemorrhoids, hx colon polyps. LOWER BACK PAIN. History of Any Multi-Drug Resistant Organisms: None Reported Past Surgical History: Hernia Repair, Orthopedic Surgery, Tonsillectomy Additional Past Surgical History / Comment(s): RIGHT HIP ARTHROPLASSTY 2021. Left ARTHROSCOPIC knee surgery, surgery for undescended testicles, COLONOSCOPY. Past Anesthesia/Blood Transfusion Reactions: No Reported Reaction Past Psychological History: Bipolar Smoking Status: Never smoker Past Alcohol Use History: Occasional Past Drug Use History: Marijuana - Past Family History Father Family Medical History: Cancer Additional Family Medical History / Comment(s): Pancreatic cancer. Mother Family Medical History: No Reported History Additional Family Medical History / Comment(s): "Stent in heart, had blood clots." General Exam Limitations: no limitations General appearance: alert, in no apparent distress Head exam: Present: atraumatic, normocephalic, normal inspection Eye exam: Present: normal appearance, PERRL, EOMI. Absent: scleral icterus, conjunctival injection, periorbital swelling ENT exam: Present: normal exam, mucous membranes moist Neck exam: Present: normal inspection. Absent: tenderness, meningismus, lymphadenopathy Respiratory exam: Present: normal lung sounds bilaterally. Absent: respiratory distress, wheezes, rales, rhonchi, stridor Cardiovascular Exam: Present: regular rate, normal rhythm, normal heart sounds. Absent: systolic murmur, diastolic murmur, rubs, gallop, clicks GI/Abdominal exam: Present: soft, normal bowel sounds. Absent: distended, tenderness, guarding, rebound, rigid Extremities exam: Present: normal inspection, full ROM, normal capillary refill. Absent: tenderness, pedal edema, joint swelling, calf tenderness Back exam: Present: normal inspection Neurological exam: Present: alert, oriented X3, CN II-XII intact Psychiatric exam: Present: normal affect, normal mood Skin exam: Present: warm, dry, intact, normal color. Absent: rash Course Vital Signs 08/21/22 08/21/22 16:55 20:17 Temperature 99.4 F Pulse Rate 82 70 Respiratory 18 18 Rate Blood Pressure 139/81 123/55 O2 Sat by Pulse 99 97 Oximetry - Reevaluation(s) Reevaluation #1: 08/21/22 20:41 Medical records reviewed Reevaluation #2: 08/21/22 20:41 Patient has persistent chest pain and the here in the ER does not fill control discharged Reevaluation #3: 08/21/22 20:41 patient informed results questions are answered Reevaluation #4: 08/21/22 20:41 Was pt. sent in by a medical professional or institution? @ -no Did you speak to anyone other than the patient for history? @ -no Did you review nursing and triage notes? @ -agree Were old charts reviewed? @ -yes Differential Diagnosis? @ -cp EKG interpreted by me (3pts min.)? @ -yes X-rays interpreted by me (1pt min.)? @ -yes CT interpreted by me (1pt min.)? @ -no U/S interpreted by me (1pt. min.)? @ -no What testing was considered but not performed? (CT, X-rays, U/S, labs)? Why? @ -no What meds were considered but not given? Why? @ -no Did you discuss the management of the patient with other professionals? @ -no Did you reconcile home meds? @ -no Was smoking cessation discussed for >3mins.? @ -no Was critical care preformed (if so, how long)? @ -no Were there social determinants of health that impacted care today? How? (Homelessness, low income, unemployed, alcoholism, drug addiction, transportation, low edu. Level, literacy, decrease access to med. care, long term, rehab)? @ -no Was there de-escalation of care discussed even if they declined? (Discuss DNR or withdrawal of care, Hospice)? @ -no What co-morbidities impacted this encounter? (DM, HTN, Smoking, COPD, CAD, Cancer, CVA, Hep., AIDS, mental health diagnosis, sleep apnea, morbid obesity)? @ -no Was patient admitted / discharged? @ -obs Undiagnosed new problem with uncertain prognosis? @ -no Drug Therapy requiring intensive monitoring for toxicity (Heparin, Nitro, Insulin, Cardizem)? @ -no Were any procedures done? @ -no Diagnosis/symptom? @ -cp Acute, or Chronic, or Acute on Chronic? @ -no Uncomplicated (without systemic symptoms) or Complicated (systemic symptoms)? @ -no Side effects of treatment? @ -no Exacerbation, Progression, or Severe Exacerbation] @ -no Poses a threat to life or bodily function? @ -no Reevaluation #5: 08/21/22 20:42 Differential Chest Pain: Stable Angina, Unstable Angina, STEMI, NSTEMI Aortic Dissection, Pneumothorax, Musculoskeletal, Esophageal Spasm GERD, Cholecystitis, Pancreatitis, Zoster, this is not meant to be an all-inclusive list. - Consultations Consultation #1: Spoke with [facility] who agree to admit the patient Chest Pain MDM - MDM 61 male DF presents with chest pain today some anxiety, patient as well as blood sugars been running high hemoglobin A1c is high he did have chest pain today as well. Always has pain in his hips both hips more so right hip. Patient is having persistent chest pain here in the ER presents today with chest pain did some shortness of breath. Mild anxiety. Patient be admitted for cardiac observation Disposition Clinical Impression: Chest pain, Hyperglycemia due to diabetes mellitus, Primary osteoarthritis of right hip Disposition: ADMITTED IP TO THIS HOSP Condition: Fair Is patient prescribed a controlled substance at d/c from ED?: No Time of Disposition: 20:00
[2022-08-21 17:35] LABS: Albumin 3.8 g/dL (3.5-5.0); Calcium 8.5 mg/dL (8.4-10.2); Magnesium 1.6 mg/dL (1.6-2.3); Potassium 3.8 mmol/L (3.5-5.1); Total Bilirubin 0.5 mg/dL (0.2-1.3); Total Protein 6.4 g/dL (6.3-8.2)
[2022-08-21 17:42] LABS: Partial Thromboplastin Time 22.5 sec (22.0-30.0); Prothrombin Time 10.4 sec (9.0-12.0)
--- NOTE | 2022-08-21 18:04 | XR ---
EXAMINATION TYPE: XR chest 1V portable DATE OF EXAM: 08/21/2022 5:46 PM COMPARISON: None TECHNIQUE: XR chest 1V portable Frontal view of the chest. CLINICAL INDICATION:Male, 61 years old with history of chest pain; FINDINGS: Lungs/Pleura: There is no evidence of pleural effusion, focal consolidation, or pneumothorax. Pulmonary vascularity: Unremarkable. Heart/mediastinum: Cardiomediastinal silhouette is unremarkable. Musculoskeletal: No acute osseous pathology. IMPRESSION: No acute cardiopulmonary disease/process.
[2022-08-21] MEDS ORDERED: ONDANSETRON 4 MG/2 ML VIAL IVP PRN (18:46)
[2022-08-21] MEDS ORDERED: NALOXONE 0.4 MG/ML 1 ML VIAL IV PRN (18:46)
[2022-08-21] MEDS: MORPHINE SULFATE 4 MG/ML SYRINGE IV PRN (20:57)
[2022-08-21 21:04] LABS: Glucose,Whole Blood 168 mg/dL (70-110)
[2022-08-21] MEDS: SODIUM CHLORIDE 0.9% 1,000 ML IV SCH (21:06)
[2022-08-22 02:28] LABS: Glucose,Whole Blood 149 mg/dL (70-110)
[2022-08-22] MEDS: SODIUM CHLORIDE 0.9% 1,000 ML IV SCH ×5 (03:20→21:48)
[2022-08-22] MEDS: INSULIN DETEMIR (LEVEMIR) 100 UNIT/ML SYR SQ SCH ×2 (03:20→21:05)
--- NOTE | 2022-08-22 10:22 | P.CRDCN ---
History of Present Illness History of present illness: HISTORY OF PRESENT ILLNESS: This is a 61-year-old male with a past medical history significant for hypertension, hyperlipidemia, diabetes, and morbid obesity. 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 We have been asked to see the patient in consultation for chest pain. Patient examined at the bedside. Patient states over the past few weeks he has been feeling short of breath with exertion. Patient states after he was walking around his house and he began to have some pain in the middle of his chest which lasted for a few minutes. He also reports he was more short of breath at that time. Patient currently denies any chest pain or pressure. The patient has been taking NSAIDs at home on a regular basis. The patient also reports a one-week history of black stools. Patient is slightly anemic with a hemoglobin of 10.7. Vital signs are stable. * EKG reveals sinus mechanism with no signs of acute ischemia * Chest xray negative for acute process * Laboratory data: WBC 10.8. Hemoglobin 10.7. Platelet count 308. Sodium 134. Potassium 3.8. BUN 26. Creatinine 1.54. Troponin negative 3. ProBNP 172. * Current home cardiac medications include Lipitor 80 mg at night and losartanhydrochlorothiazide 100-25mg daily * Most recent echocardiogram obtained in December 2021 revealed ejection fraction 50-55%, trace tricuspid regurgitation, [id number] mitral regurgitation REVIEW OF SYSTEMS: At the time of my exam: CONSTITUTIONAL: Denies fever or chills. HEENT: Denies blurred vision, vision changes, or eye pain. Denies hemoptysis CARDIOVASCULAR: Denies chest pain. Denies orthopnea. Denies PND. Denies palpitations RESPIRATORY: Denies shortness of breath. GASTROINTESTINAL: Denies abdominal pain. Denies nausea or vomiting. HEMATOLOGIC: Denies bleeding disorders. GENITOURINARY: Denies any blood in urine. SKIN: Denies pruitis. Denies rash. PHYSICAL EXAM: VITAL SIGNS: Reviewed. GENERAL: Well-developed in no acute distress. HEENT: Head is normocephalic. Pupils are equal, round. Sclerae anicteric. Mucous membranes of the mouth are moist. Neck supple. No JVD or thyromegaly LUNGS: Respirations even and unlabored. Lungs essentially clear to auscultation bilaterally. HEART: Regular rate and rhythm. S1 and S2 heard. ABDOMEN: Soft. Nondistended. Nontender. EXTREMITIES: Normal range of motion. No clubbing or cyanosis. Peripheral pulses intact. No lower extremity edema NEUROLOGIC: Awake and alert. Oriented x 3. ASSESSMENT: Chest pain, troponins negative 3 Exertional shortness of breath Anemia, etiology unclear, patient reports 1 week history of black stools and regular NSAID use, rule out GI bleeding Acute kidney injury Hypertension Hyperlipidemia Diabetes Morbid obesity PLAN: An acute coronary event has been ruled out Obtain 2-D echo to assess cardiac structure and function Hold losartan-hydrochlorothiazide secondary to kidney function Recommend surgical consult to rule out GI bleeding as patient reports 1 week history of black stools and regular NSAID use NPO at midnight for any possible stress testing. Decision to be made pending further workup Further recommendations pending patient course Nurse practitioner note has been reviewed by physician. Signing provider agrees with the documented findings, assessment, and plan of care. Past Medical History Past Medical History: Asthma, COPD, Diabetes Mellitus, Fibromyalgia, GERD/Reflux, Hyperlipidemia, Hypertension, Musculoskeletal Disorder, Osteoarthritis (OA) Additional Past Medical History / Comment(s): Hemorrhoids, hx colon polyps. LOWER BACK PAIN. History of Any Multi-Drug Resistant Organisms: None Reported Past Surgical History: Hernia Repair, Orthopedic Surgery, Tonsillectomy Additional Past Surgical History / Comment(s): RIGHT HIP ARTHROPLASSTY 2021. Left ARTHROSCOPIC knee surgery, surgery for undescended testicles, COLONOSCOPY. Past Anesthesia/Blood Transfusion Reactions: No Reported Reaction Past Psychological History: Bipolar Smoking Status: Never smoker Past Alcohol Use History: Occasional Past Drug Use History: Marijuana - Past Family History Father Family Medical History: Cancer Additional Family Medical History / Comment(s): Pancreatic cancer. Mother Family Medical History: No Reported History Additional Family Medical History / Comment(s): "Stent in heart, had blood clots." Medications and Allergies Home Medications Medication Instructions Recorded Confirmed Type Atorvastatin [Lipitor] 80 mg PO HS 10/04/21 08/21/22 History Budesonide/Formoterol Fumarate 2 puff INHALATION RT-BID PRN 10/04/21 08/21/22 History [Symbicort 160-4.5 Mcg Inhaler] FLUoxetine HCL [PROzac] 40 mg PO DAILY 10/04/21 08/21/22 History Linagliptin [Tradjenta] 5 mg PO DAILY 10/04/21 08/21/22 History Losartan/Hydrochlorothiazide 1 tab PO DAILY 10/04/21 08/21/22 History [Losartan-Hctz 100-25 mg Tab] Omeprazole 20 mg PO DAILY 10/04/21 08/21/22 History HYDROcodone/APAP 7.5-325MG [[place] 1 tab PO TID PRN 01/31/22 08/21/22 History 7.5-325] Insulin Degludec [Tresiba] 30 units SQ HS 01/31/22 08/21/22 History Diclofenac Sodium [Voltaren] 75 mg PO BID 30 Days #60 tab 02/09/22 08/21/22 Rx Cariprazine HCl [Vraylar] 3 mg PO HS 08/21/22 08/21/22 History Magnesium Oxide [Mag-Ox] 400 mg PO DAILY 08/21/22 08/21/22 History Turmeric Root Extract [Turmeric] 500 mg PO DAILY 08/21/22 08/21/22 History metFORMIN HCL [Glucophage] 1,000 mg PO BID 08/21/22 08/21/22 History Allergies Allergy/AdvReac Type Severity Reaction Status Date / Time empagliflozin Allergy High blood Verified 08/21/22 17:48 [From Jardiance] sugar Penicillins Allergy Rash/Hives Verified 08/21/22 17:48 Physical Exam Vitals: Vital Signs Temp Pulse Pulse Resp BP BP Pulse Ox 08/22/22 07:42 97.9 F 65 16 135/83 98 08/22/22 00:51 63 17 137/86 98 08/22/22 00:47 63 18 142/81 95 08/21/22 21:04 68 18 122/58 98 08/21/22 20:17 70 18 123/55 97 08/21/22 16:55 99.4 F 82 18 139/81 99 Intake and Output 08/21/22 08/22/22 08/22/22 22:59 06:59 14:59 Other: Weight 119.748 kg Results 08/21/22 17:02 08/21/22 17:02 Cardiac Enzymes 08/21/22 08/21/22 08/21/22 Range/Units 17:02 17:02 20:42 AST 22 (17-59) U/L Troponin I <0.012 <0.012 (0.000-0.034) ng/mL 08/21/22 Range/Units 23:40 AST (17-59) U/L Troponin I <0.012 (0.000-0.034) ng/mL Coagulation 08/21/22 Range/Units 17:02 PT 10.4 (9.0-12.0) sec APTT 22.5 (22.0-30.0) sec CBC 08/21/22 Range/Units 17:02 WBC 10.8 H (3.8-10.6) k/uL RBC 3.86 L (4.30-5.90) m/uL Hgb 10.7 L (13.0-17.5) gm/dL Hct 32.5 L (39.0-53.0) % Plt Count 308 (150-450) k/uL Comprehensive Metabolic Panel 08/21/22 Range/Units 17:02 Sodium 134 L (137-145) mmol/L Potassium 3.8 (3.5-5.1) mmol/L Chloride 99 (98-107) mmol/L Carbon Dioxide 25 (22-30) mmol/L BUN 26 H (9-20) mg/dL Creatinine 1.54 H (0.66-1.25) mg/dL Glucose 168 H (74-99) mg/dL Calcium 8.5 (8.4-10.2) mg/dL AST 22 (17-59) U/L ALT 21 (4-49) U/L Alkaline Phosphatase 85 (38-126) U/L Total Protein 6.4 (6.3-8.2) g/dL Albumin 3.8 (3.5-5.0) g/dL Current Medications Generic Name Dose Route Start Last Admin Trade Name Freq PRN Reason Stop Dose Admin Sodium Chloride 1,000 mls @ 130 mls/hr 08/21/22 19:00 08/22/22 03:20 Saline 0.9% IV Not Given .[id number] WENDY Insulin Detemir 30 unit 08/22/22 03:00 08/22/22 03:20 Insulin Detemir (Levemir) 100 Unit/Ml Syr SQ 30 unit HS WENDY Administration Morphine Sulfate 4 mg 08/21/22 18:46 08/21/22 20:57 Morphine Sulfate 4 Mg/Ml Syringe IV 4 mg Q4HR PRN Administration Severe Pain (Scale 7 to 10) Naloxone HCl 0.2 mg 08/21/22 18:46 Naloxone 0.4 Mg/Ml 1 Ml Vial IV Q2M PRN Opioid Reversal Ondansetron HCl 4 mg 08/21/22 18:46 08/21/22 21:10 Ondansetron 4 Mg/2 Ml Vial IVP 4 mg Q8HR PRN Administration Nausea And Vomiting Intake and Output 08/21/22 08/22/22 08/22/22 22:59 06:59 14:59 Other: Weight 119.748 kg 08/21/22 17:02 08/21/22 17:02
[2022-08-22 11:40] LABS: Basophils % (A) 0 %; Eosinophils # (A) 0.1 k/uL (0-0.7); Eosinophils % (A) 1 %; HCT 30.9 % (39.0-53.0); Lymphocytes # (A) 1.5 k/uL (1.0-4.8); Lymphocytes % (A) 19 %; MCH 27.6 pg (25.0-35.0); MCHC 32.5 g/dL (31.0-37.0); MCV 84.9 fL (80.0-100.0); Mean Platelet Volume 7.6; Monocytes # (A) 0.4 k/uL (0-1.0); Monocytes % (A) 4 %; Neutrophils # (A) 5.9 k/uL (1.3-7.7); Neutrophils % (A) 73 %; Platelet Count 318 k/uL (150-450); RBC 3.64 m/uL (4.30-5.90); RDW 15.4 % (11.5-15.5); WBC 8.1 k/uL (3.8-10.6)
[2022-08-22 12:03] LABS: African American GFR (CKD) 61 (>60 ml/min/1.73 sqM); Anion Gap 7 mmol/L; Blood Urea Nitrogen 24 mg/dL (9-20); Calcium 8.5 mg/dL (8.4-10.2); Carbon Dioxide 27 mmol/L (22-30); Chloride 104 mmol/L (98-107); Glucose 62 mg/dL (74-99); Non-African American GFR(CKD) 53 (>60 ml/min/1.73 sqM); Potassium 3.6 mmol/L (3.5-5.1); Sodium 138 mmol/L (137-145)
--- NOTE | 2022-08-22 12:21 | CA ---
Transthoracic Echo Report Name: Nba Lopez Age: 61 Gender: M : 1960 Exam Date: 08/22/2022 10:10 Exam Location: [facility] Ht (in): 68 Wt (lb): 264 Ordering Physician: Joanna Melara Attending/Referring Phys: [id number], Saritha Application Support Administrator Diana Cordero, RDCS Procedure CPT: Indications: LV function Cardiac Hx: Technical Quality: Fair Contrast 1: Total Dose (mL): Contrast 2: Total Dose (mL): MEASUREMENTS (Male / Female) Normal Values 2D ECHO LV Diastolic Diameter PLAX 5.0 cm 4.2 - 5.9 / 3.9 - 5.3 cm LV Systolic Diameter PLAX 3.3 cm IVS Diastolic Thickness 1.3 cm 0.6 - 1.0 / 0.6 - 0.9 cm LVPW Diastolic Thickness 1.3 cm 0.6 - 1.0 / 0.6 - 0.9 cm LV Relative Wall Thickness 0.5 RV Internal Dim ED PLAX 3.2 cm LA Systolic Diameter LX 3.4 cm 3.0 - 4.0 / 2.7 - 3.8 cm M-MODE Aortic Root Diameter MM 3.2 cm MV E Point Septal Separation 0.8 cm AV Cusp Separation MM 2.0 cm DOPPLER AV Peak Velocity 119.8 cm/s AV Peak Gradient 5.7 mmHg MV Peak Velocity 116.9 cm/s MV Peak Gradient 5.5 mmHg MV Mean Velocity 67.1 cm/s MV Mean Gradient 2.1 mmHg MV Velocity Time Integral 28.2 cm MV Area PHT 3.0 cm??? Mitral E Point Velocity 107.6 cm/s Mitral A Point Velocity 94.3 cm/s Mitral E to A Ratio 1.1 MV Deceleration Time 215.0 ms MV E' Velocity 7.6 cm/s Mitral E to MV E' Ratio 14.2 FINDINGS Left Ventricle Left ventricular ejection fraction is estimated at 55-60 %. Left ventricular cavity size normal. Mild concentric left ventricular hypertrophy. Right Ventricle Normal right ventricular size and function. Right Atrium Normal right atrial size. Left Atrium Normal left atrial size. Mitral Valve Mitral valve thickened. [id number] mitral regurgitation. Can not exclude MVP Aortic Valve Trileaflet aortic valve. No aortic valve stenosis or regurgitation. Tricuspid Valve Structurally normal tricuspid valve. No TR Pulmonic Valve Pulmonic valve not well visualized. Pericardium No pericardial effusion. Aorta Normal size aortic root and proximal ascending aorta. CONCLUSIONS Mild elevation preserved systolic function [id number] Jose Luis regurgitation Previewed by: Dr. Chris Cox MD (Electronically Signed) Final Date: 22 August 2022 12:20
[2022-08-22 12:22] LABS: Glucose,Whole Blood 63 mg/dL (70-110)
--- NOTE | 2022-08-22 12:36 | P.GSCN ---
History of Present Illness Consult date: 08/22/22 History of present illness: CHIEF COMPLAINT: Chest pain Reason for consult black stools, shortness of breath and anemia HISTORY OF PRESENT ILLNESS: This is a 61-year-old male presented to hospital with complaints of chest pain and shortness of breath. Acute coronary syndrome was ruled out. Troponins are negative. Patient seen and evaluated by cardiology. Patient has been having black stools. He reports that over the last couple weeks he's had a few episodes of black stools. He denies abdominal pain denies any nausea or vomiting. Denies any history of a prior EGD. He does take diclofenac twice a day at home. He has not taken it for the last week due to preparation for his hip surgery. Patient reports his last colonoscopy was in September 2021 that had shown evidence of internal and external hemorrhoids with diverticulosis. PAST MEDICAL HISTORY: See below PAST SURGICAL HISTORY: See below MEDICATIONS: See below ALLERGIES: See below SOCIAL HISTORY: No illicit drug use. REVIEW OF SYSTEMS: CONSTITUTIONAL: Denies fever or chills. HEENT: Denies blurred vision, vision changes, or eye pain. Denies hemoptysis CARDIOVASCULAR: Denies chest pain or pressure. RESPIRATORY: No shortness of breath. GASTROINTESTINAL: See HPI for pertinent findings HEMATOLOGIC: Denies bleeding disorders. GENITOURINARY: Denies any blood in urine or increased urinary frequency. SKIN: Denies pruitis. Denies rash. PHYSICAL EXAM: VITAL SIGNS: Reviewed GENERAL: Well-developed in no acute distress. HEENT: No sclera icterus. Extraocular movements grossly intact. Moist buccal mucosa. Head is atraumatic, normocephalic. No nasal drainage. ABDOMEN: Soft. Nondistended. Nontender NEUROLOGIC: Alert and oriented. Cranial nerves II through XII grossly intact. LABORATORY DATA: WBC 8.1 hgb 10 platelets 318 Sodium 138 potassium 3.6 creatinine 1.42 glucose 63 Hemoglobin A1c 7.5 IMAGING: ASSESSMENT: 1. Anemia with Black stools 2. Daily NSAID use 3. Diabetes mellitus with hypoglycemia PLAN: -Patient scheduled for EGD today with Dr. walters -Keep patient nothing by mouth -Continue IV fluids -Add IV Protonix -Continue to monitor hemoglobin -Continue monitoring for any signs or symptoms of bleeding -Hold all NSAIDs Physician [employer]r note has been reviewed by physician. Signing provider agrees with the documented findings, assessment, and plan of care. Past Medical History Past Medical History: Asthma, COPD, Diabetes Mellitus, Fibromyalgia, GERD/Reflux, Hyperlipidemia, Hypertension, Musculoskeletal Disorder, Osteoarthritis (OA) Additional Past Medical History / Comment(s): Hemorrhoids, hx colon polyps. LOWER BACK PAIN. History of Any Multi-Drug Resistant Organisms: None Reported Past Surgical History: Hernia Repair, Orthopedic Surgery, Tonsillectomy Additional Past Surgical History / Comment(s): RIGHT HIP ARTHROPLASSTY 2021. Left ARTHROSCOPIC knee surgery, surgery for undescended testicles, COLONOSCOPY. Past Anesthesia/Blood Transfusion Reactions: No Reported Reaction Past Psychological History: Bipolar Smoking Status: Never smoker Past Alcohol Use History: Occasional Past Drug Use History: Marijuana - Past Family History Father Family Medical History: Cancer Additional Family Medical History / Comment(s): Pancreatic cancer. Mother Family Medical History: No Reported History Additional Family Medical History / Comment(s): "Stent in heart, had blood clots." Medications and Allergies Home Medications Medication Instructions Recorded Confirmed Type Atorvastatin [Lipitor] 80 mg PO HS 10/04/21 08/21/22 History Budesonide/Formoterol Fumarate 2 puff INHALATION RT-BID PRN 10/04/21 08/21/22 History [Symbicort 160-4.5 Mcg Inhaler] FLUoxetine HCL [PROzac] 40 mg PO DAILY 10/04/21 08/21/22 History Linagliptin [Tradjenta] 5 mg PO DAILY 10/04/21 08/21/22 History Losartan/Hydrochlorothiazide 1 tab PO DAILY 10/04/21 08/21/22 History [Losartan-Hctz 100-25 mg Tab] Omeprazole 20 mg PO DAILY 10/04/21 08/21/22 History HYDROcodone/APAP 7.5-325MG [[place] 1 tab PO TID PRN 01/31/22 08/21/22 History 7.5-325] Insulin Degludec [Tresiba] 30 units SQ HS 01/31/22 08/21/22 History Diclofenac Sodium [Voltaren] 75 mg PO BID 30 Days #60 tab 02/09/22 08/21/22 Rx Cariprazine HCl [Vraylar] 3 mg PO HS 08/21/22 08/21/22 History Magnesium Oxide [Mag-Ox] 400 mg PO DAILY 08/21/22 08/21/22 History Turmeric Root Extract [Turmeric] 500 mg PO DAILY 08/21/22 08/21/22 History metFORMIN HCL [Glucophage] 1,000 mg PO BID 08/21/22 08/21/22 History Allergies Allergy/AdvReac Type Severity Reaction Status Date / Time empagliflozin Allergy High blood Verified 08/21/22 17:48 [From Jardiance] sugar Penicillins Allergy Rash/Hives Verified 08/21/22 17:48 Surgical - Exam Vital Signs Temp Pulse Resp BP Pulse Ox 99.4 F 82 18 139/81 99 08/21/22 16:55 08/21/22 16:55 08/21/22 16:55 08/21/22 16:55 08/21/22 16:55 Results - Labs 08/22/22 10:35 08/22/22 10:35 Abnormal Lab Results - Last 24 Hours (Table) 08/21/22 08/21/22 08/21/22 Range/Units 17:02 17:02 20:18 WBC 10.8 H (3.8-10.6) k/uL RBC 3.86 L (4.30-5.90) m/uL Hgb 10.7 L (13.0-17.5) gm/dL Hct 32.5 L (39.0-53.0) % Neutrophils # 7.9 H (1.3-7.7) k/uL Sodium 134 L (137-145) mmol/L BUN 26 H (9-20) mg/dL Creatinine 1.54 H (0.66-1.25) mg/dL Glucose 168 H (74-99) mg/dL POC Glucose (mg/dL) (70-110) mg/dL Hemoglobin A1c 7.5 H (0.0-6.0) % 08/21/22 08/22/22 08/22/22 Range/Units 21:03 02:27 10:35 WBC (3.8-10.6) k/uL RBC 3.64 L (4.30-5.90) m/uL Hgb 10.0 L (13.0-17.5) gm/dL Hct 30.9 L (39.0-53.0) % Neutrophils # (1.3-7.7) k/uL Sodium (137-145) mmol/L BUN (9-20) mg/dL Creatinine (0.66-1.25) mg/dL Glucose (74-99) mg/dL POC Glucose (mg/dL) 168 H 149 H (70-110) mg/dL Hemoglobin A1c (0.0-6.0) % 08/22/22 08/22/22 Range/Units 10:35 12:21 WBC (3.8-10.6) k/uL RBC (4.30-5.90) m/uL Hgb (13.0-17.5) gm/dL Hct (39.0-53.0) % Neutrophils # (1.3-7.7) k/uL Sodium (137-145) mmol/L BUN 24 H (9-20) mg/dL Creatinine 1.42 H (0.66-1.25) mg/dL Glucose 62 L (74-99) mg/dL POC Glucose (mg/dL) 63 L (70-110) mg/dL Hemoglobin A1c (0.0-6.0) % Diabetes panel 08/21/22 08/21/22 08/22/22 Range/Units 17:02 20:18 10:35 Sodium 134 L 138 (137-145) mmol/L Potassium 3.8 3.6 (3.5-5.1) mmol/L Chloride 99 104 (98-107) mmol/L Carbon Dioxide 25 27 (22-30) mmol/L BUN 26 H 24 H (9-20) mg/dL Creatinine 1.54 H 1.42 H (0.66-1.25) mg/dL Glucose 168 H 62 L (74-99) mg/dL Hemoglobin A1c 7.5 H (0.0-6.0) % Calcium 8.5 8.5 (8.4-10.2) mg/dL AST 22 (17-59) U/L ALT 21 (4-49) U/L Alkaline Phosphatase 85 (38-126) U/L Total Protein 6.4 (6.3-8.2) g/dL Albumin 3.8 (3.5-5.0) g/dL Calcium panel 08/21/22 08/22/22 Range/Units 17:02 10:35 Calcium 8.5 8.5 (8.4-10.2) mg/dL Albumin 3.8 (3.5-5.0) g/dL Pituitary panel 08/21/22 08/22/22 Range/Units 17:02 10:35 Sodium 134 L 138 (137-145) mmol/L Potassium 3.8 3.6 (3.5-5.1) mmol/L Chloride 99 104 (98-107) mmol/L Carbon Dioxide 25 27 (22-30) mmol/L BUN 26 H 24 H (9-20) mg/dL Creatinine 1.54 H 1.42 H (0.66-1.25) mg/dL Glucose 168 H 62 L (74-99) mg/dL Calcium 8.5 8.5 (8.4-10.2) mg/dL Adrenal panel 08/21/22 08/22/22 Range/Units 17:02 10:35 Sodium 134 L 138 (137-145) mmol/L Potassium 3.8 3.6 (3.5-5.1) mmol/L Chloride 99 104 (98-107) mmol/L Carbon Dioxide 25 27 (22-30) mmol/L BUN 26 H 24 H (9-20) mg/dL Creatinine 1.54 H 1.42 H (0.66-1.25) mg/dL Glucose 168 H 62 L (74-99) mg/dL Calcium 8.5 8.5 (8.4-10.2) mg/dL Total Bilirubin 0.5 (0.2-1.3) mg/dL AST 22 (17-59) U/L ALT 21 (4-49) U/L Alkaline Phosphatase 85 (38-126) U/L Total Protein 6.4 (6.3-8.2) g/dL Albumin 3.8 (3.5-5.0) g/dL
[2022-08-22] MEDS ORDERED: PROPOFOL 10 MG/ML 20 ML VIAL IV ONE (13:03)
[2022-08-22] MEDS ORDERED: LIDOCAINE 2% INJ 20 MG/ML (2 ML VIAL) ONE (13:03)
[2022-08-22] MEDS ORDERED: IV FLUID CONTINUATION 1,000 ML IV ONE (13:09)
[2022-08-22] MEDS: PANTOPRAZOLE 40 MG/10 ML VIAL IVP SCH ×2 (13:41→21:05)
[2022-08-22] MEDS: ASPIRIN 81 MG PO SCH (13:41)
--- NOTE | 2022-08-22 13:47 | P.OP ---
Date of Procedure: 08/22/22 Preoperative Diagnosis: Anemia Melanotic stool Postoperative Diagnosis: Mild antral gastritis Procedure(s) Performed: EGD Anesthesia: MAC Surgeon: Abraham Vaz Pathology: other (Antrum) Condition: stable Disposition: PACU Description of Procedure: Patient's placed on the endoscopy table in the lateral position. He received IV sedation. The gastro-/oropharynx passed in the esophagus and into the stomach. Scope was placed through the pylorus. The first second portion of duodenum appeared normal. Scope summer back the antrum and this appeared minimally inflamed. A biopsies performed. The scope was then retroflexed and the remainder the stomach appeared normal. There was no evidence of any acute upper GI bleed. The GE junction was at 47 is. The distal esophagus appeared normal. The proximal esophagus appeared normal. Scope withdrawn for patient.
[2022-08-22] MEDS: MORPHINE SULFATE 4 MG/ML SYRINGE IV PRN ×2 (13:52→18:24)
[2022-08-22 17:12] LABS: Glucose,Whole Blood 150 mg/dL (70-110)
[2022-08-22] MEDS: ATORVASTATIN 80 MG TAB PO SCH (21:05)
[2022-08-22 21:12] LABS: Glucose,Whole Blood 172 mg/dL (70-110)
[2022-08-23] MEDS ORDERED: SYMBICORT 160-4.5 MCG INHALER INHALATION PRN (01:34)
--- NOTE | 2022-08-23 01:37 | P.HPIM ---
History of Present Illness H&P Date: 08/22/22 Chief Complaint: Chest pain Patient is a 61-year-old male with a known history of hypertension, hyperlipidemia, fibromyalgia, GERD, COPD, osteoarthritis with history of right hip arthroplasty in February 2022, bipolar disorder and occasional marijuana use presents to ER with complaints of chest pain and shortness of breath. Patient states that he is scheduled for outpatient hip replacement but his blood pressures are running too high. Patient states that over the past few weeks he has been feeling short of breath with exertion. Presents to ER with complaints of chest pain in the middle of the chest lasting for few minutes. Denies any radiation of the pain. Denies any associated shortness of breath or dizziness or lightheadedness. Patient states that he has been using pain medications/NSAIDs since his last surgery from February on daily basis. He also reports having darker stools for the past 1 week. Denies any abdominal pain. No nausea or vomiting. No cough or sputum production. No fever no chills. Denies any recent illnesses. Chest x-ray showed no acute cardiopulmonary process/disease. EKG showed sinus rhythm Laboratory data showed WBC 10.8 hemoglobin 10.7 and platelets 308 Sodium 134 potassium 3.8 chloride 99 bicarb is 25 BUN 26 and creatinine 1.54 and blood sugar is 164, A1c 7.5 Magnesium 1.6 Troponin x3 negative Loramyc are not elevated proBNP is 172, lipase 1251 Review of Systems Constitutional: Patient denies any fever or chills . no Generalized weakness. Abdomen: Patient denied any nausea or vomiting or abd. pain. Complains of dark- colored stools. Cardiovascular: Patient was complaining of intermittent chest pain. No associated shortness of breath. No leg swelling. Respiratory: patient denied any cough . no sputum production. No shortness of breath Neurologic: Patient denied any numbness or tingling headache. Musculoskeletal: Patient denies any complaints of joint swelling or deformity. Skin: Negative Psychiatric: Negative Endocrine: No heat or cold intolerance. No recent weight gain. Genitourinary: No dysuria or hematuria. All other 14 point ROS negative except the above Past Medical History Past Medical History: Asthma, COPD, Diabetes Mellitus, Fibromyalgia, GERD/Reflux, Hyperlipidemia, Hypertension, Musculoskeletal Disorder, Osteoarthritis (OA) Additional Past Medical History / Comment(s): Hemorrhoids, hx colon polyps. LOWER BACK PAIN. History of Any Multi-Drug Resistant Organisms: None Reported Past Surgical History: Hernia Repair, Orthopedic Surgery, Tonsillectomy Additional Past Surgical History / Comment(s): RIGHT HIP ARTHROPLASSTY 2021. Left ARTHROSCOPIC knee surgery, surgery for undescended testicles, COLONOSCOPY. Past Anesthesia/Blood Transfusion Reactions: No Reported Reaction Past Psychological History: Bipolar Smoking Status: Never smoker Past Alcohol Use History: Occasional Past Drug Use History: Marijuana - Past Family History Father Family Medical History: Cancer Additional Family Medical History / Comment(s): Pancreatic cancer. Mother Family Medical History: No Reported History Additional Family Medical History / Comment(s): "Stent in heart, had blood clots." Medications and Allergies Home Medications Medication Instructions Recorded Confirmed Type Atorvastatin [Lipitor] 80 mg PO HS 10/04/21 08/21/22 History Budesonide/Formoterol Fumarate 2 puff INHALATION RT-BID PRN 10/04/21 08/21/22 History [Symbicort 160-4.5 Mcg Inhaler] FLUoxetine HCL [PROzac] 40 mg PO DAILY 10/04/21 08/21/22 History Linagliptin [Tradjenta] 5 mg PO DAILY 10/04/21 08/21/22 History Losartan/Hydrochlorothiazide 1 tab PO DAILY 10/04/21 08/21/22 History [Losartan-Hctz 100-25 mg Tab] Omeprazole 20 mg PO DAILY 10/04/21 08/21/22 History HYDROcodone/APAP 7.5-325MG [[place] 1 tab PO TID PRN 01/31/22 08/21/22 History 7.5-325] Insulin Degludec [Tresiba] 30 units SQ HS 01/31/22 08/21/22 History Diclofenac Sodium [Voltaren] 75 mg PO BID 30 Days #60 tab 02/09/22 08/21/22 Rx Cariprazine HCl [Vraylar] 3 mg PO HS 08/21/22 08/21/22 History Magnesium Oxide [Mag-Ox] 400 mg PO DAILY 08/21/22 08/21/22 History Turmeric Root Extract [Turmeric] 500 mg PO DAILY 08/21/22 08/21/22 History metFORMIN HCL [Glucophage] 1,000 mg PO BID 08/21/22 08/21/22 History Allergies Allergy/AdvReac Type Severity Reaction Status Date / Time empagliflozin Allergy High blood Verified 08/21/22 17:48 [From Jardiance] sugar Penicillins Allergy Rash/Hives Verified 08/21/22 17:48 Physical Exam Vitals: Vital Signs Temp Pulse Pulse Resp BP BP Pulse Ox 08/22/22 07:42 97.9 F 65 16 135/83 98 08/22/22 00:51 63 17 137/86 98 08/22/22 00:47 63 18 142/81 95 08/21/22 21:04 68 18 122/58 98 08/21/22 20:17 70 18 123/55 97 08/21/22 16:55 99.4 F 82 18 139/81 99 Intake and Output 08/21/22 08/22/22 08/22/22 22:59 06:59 14:59 Other: Weight 119.748 kg 119.748 kg PHYSICAL EXAMINATION: Patient is lying in the bed comfortably, no acute distress, awake alert and oriented.. HEENT: Normocephalic. Neck is supple. Pupils reactive. Nostrils clear. Oral cavity is moist. Neck reveals no JVD, carotid bruits, or thyromegaly. CHEST EXAMINATION: Trachea is central. Symmetrical expansion. Lung chau clear to auscultation and percussion. CARDIAC: Normal S1, S2 with no gallops. No murmurs ABDOMEN: Soft. Bowel sounds present. Nontender. No organomegaly. No abdominal bruits. Extremities: reveal no edema. No clubbing or cyanosis Neurologically awake, alert, oriented x3 with well-coordinated movements. No focal deficits noted Skin: No rash or skin lesions. Psychiatric: Coperative. Nonsuicidal, Musculoskeletal: No joint swelling or deformity. Normal range of motion. Results CBC & Chem 7: 08/22/22 10:35 08/22/22 10:35 Labs: Abnormal Lab Results - Last 24 Hours (Table) 08/21/22 08/21/22 08/21/22 Range/Units 17:02 17:02 20:18 WBC 10.8 H (3.8-10.6) k/uL RBC 3.86 L (4.30-5.90) m/uL Hgb 10.7 L (13.0-17.5) gm/dL Hct 32.5 L (39.0-53.0) % Neutrophils # 7.9 H (1.3-7.7) k/uL Sodium 134 L (137-145) mmol/L BUN 26 H (9-20) mg/dL Creatinine 1.54 H (0.66-1.25) mg/dL Glucose 168 H (74-99) mg/dL POC Glucose (mg/dL) (70-110) mg/dL Hemoglobin A1c 7.5 H (0.0-6.0) % 08/21/22 08/22/22 08/22/22 Range/Units 21:03 02:27 10:35 WBC (3.8-10.6) k/uL RBC 3.64 L (4.30-5.90) m/uL Hgb 10.0 L (13.0-17.5) gm/dL Hct 30.9 L (39.0-53.0) % Neutrophils # (1.3-7.7) k/uL Sodium (137-145) mmol/L BUN (9-20) mg/dL Creatinine (0.66-1.25) mg/dL Glucose (74-99) mg/dL POC Glucose (mg/dL) 168 H 149 H (70-110) mg/dL Hemoglobin A1c (0.0-6.0) % 08/22/22 08/22/22 Range/Units 10:35 12:21 WBC (3.8-10.6) k/uL RBC (4.30-5.90) m/uL Hgb (13.0-17.5) gm/dL Hct (39.0-53.0) % Neutrophils # (1.3-7.7) k/uL Sodium (137-145) mmol/L BUN 24 H (9-20) mg/dL Creatinine 1.42 H (0.66-1.25) mg/dL Glucose 62 L (74-99) mg/dL POC Glucose (mg/dL) 63 L (70-110) mg/dL Hemoglobin A1c (0.0-6.0) % Thrombosis Risk Factor Assmnt - DVT/VTE Prophylaxis DVT/VTE Prophylaxis: Mechanical Prophylaxis ordered - Choose All That Apply Any of the Below Risk Factors Present?: Yes Each Factor Represents 1 point: Obesity (BMI >25) Other Risk Factors: Yes Each Risk Factor Represents 2 Points: Age 61-74 years Thrombosis Risk Factor Assessment Total Risk Factor Score: 3 Thrombosis Risk Factor Assessment Level: Moderate Risk Assessment and Plan Assessment: Atypical chest pain. Rule out ACS Dark-colored stools x1 week. Possible GI bleed Recent history of NSAID use on daily basis Acute kidney injury likely prerenal Diabetes type 2 uncontrolled with A1c 7.5 Fibromyalgia GERD Hypertension Hyperlipidemia Osteoarthritis Bipolar disorder Marijuana use DVT prophylaxis with SCDs Plan: Patient will be continued on telemetry monitoring. Serial EKG and troponin x3 negative. Continue IV hydration and continued IV Protonix and general surgery is planning for EGD today. Monitor H&H closely. Monitor renal function. Losartan/hydrochlorothiazide is on hold. Cardiology is planning for stress test tomorrow. Continue to follow closely. Time with Patient: Greater than 30
[2022-08-23] MEDS ORDERED: DEXTROSE 50% SYRINGE 50 ML IVP PRN ×2 (01:42)
[2022-08-23 06:09] LABS: Glucose,Whole Blood 114 mg/dL (70-110)
[2022-08-23] MEDS: INSULIN ASPART (NovoLOG) 100 UNIT/ML VIAL SQ SCH ×4 (06:34→20:06)
[2022-08-23 07:46] LABS: Basophils % (A) 0 %; Eosinophils # (A) 0.1 k/uL (0-0.7); Eosinophils % (A) 1 %; HCT 30.3 % (39.0-53.0); Lymphocytes # (A) 1.3 k/uL (1.0-4.8); Lymphocytes % (A) 19 %; MCH 27.3 pg (25.0-35.0); MCHC 32.8 g/dL (31.0-37.0); MCV 83.3 fL (80.0-100.0); Mean Platelet Volume 7.4; Monocytes # (A) 0.3 k/uL (0-1.0); Monocytes % (A) 4 %; Neutrophils # (A) 5.2 k/uL (1.3-7.7); Neutrophils % (A) 74 %; Platelet Count 297 k/uL (150-450); RBC 3.64 m/uL (4.30-5.90); RDW 15.5 % (11.5-15.5); WBC 7.1 k/uL (3.8-10.6)
[2022-08-23] MEDS ORDERED: CAFFEINE CITRATE 60 MG/3 ML VIAL IV PRN (07:46)
[2022-08-23] MEDS ORDERED: REGADENOSON 0.4 MG/5 ML SYRINGE IV PRN (07:46)
[2022-08-23] MEDS ORDERED: AMINOPHYLLINE 500 MG/20 ML VIAL IV PRN (07:46)
[2022-08-23 07:56] LABS: African American GFR (CKD) 73 (>60 ml/min/1.73 sqM); Anion Gap 6 mmol/L; Blood Urea Nitrogen 19 mg/dL (9-20); Calcium 8.4 mg/dL (8.4-10.2); Carbon Dioxide 27 mmol/L (22-30); Chloride 103 mmol/L (98-107); Glucose 95 mg/dL (74-99); Non-African American GFR(CKD) 63 (>60 ml/min/1.73 sqM); Sodium 136 mmol/L (137-145)
--- NOTE | 2022-08-23 10:27 | P.PN ---
Subjective Progress Note Date: 08/23/22 HISTORY OF PRESENT ILLNESS: This is a 61-year-old male with a past medical history significant for hypertension, hyperlipidemia, diabetes, and morbid obesity. Patient does not follow with a pcts. We have been asked to see the patient in consultation for chest pain. Patient examined at the bedside. Patient states over the past few weeks he has been feeling short of breath with exertion. Patient states after he was walking around his house and he began to have some pain in the middle of his chest which lasted for a few minutes. He also reports he was more short of breath at that time. Patient currently denies any chest pain or pressure. The patient has been taking NSAIDs at home on a regular basis. The patient also reports a one-week history of black stools. Patient is slightly anemic with a hemoglobin of 10.7. Vital signs are stable. * EKG reveals sinus mechanism with no signs of acute ischemia * Chest xray negative for acute process * Laboratory data: WBC 10.8. Hemoglobin 10.7. Platelet count 308. Sodium 134. Potassium 3.8. BUN 26. Creatinine 1.54. Troponin negative 3. ProBNP 172. * Current home cardiac medications include Lipitor 80 mg at night and losartanhydrochlorothiazide 100-25mg daily * Most recent echocardiogram obtained in December 2021 revealed ejection fraction 50-55%, trace tricuspid regurgitation, [id number] mitral regurgitation 08/23/2022 Patient examined this point the bedside. Patient denies chest pain or pressure. He denies shortness of breath. Patient underwent EGD yesterday revealing mild antral gastritis. Echocardiogram completed revealing ejection fraction 55-60%, mild LVH, and mild to moderate mitral regurgitation. Vital signs are stable. PHYSICAL EXAM: VITAL SIGNS: Reviewed. GENERAL: Well-developed in no acute distress. HEENT: Head is normocephalic. Pupils are equal, round. Sclerae anicteric. Mucous membranes of the mouth are moist. Neck supple. No JVD or thyromegaly LUNGS: Respirations even and unlabored. Lungs essentially clear to auscultation bilaterally. HEART: Regular rate and rhythm. S1 and S2 heard. ABDOMEN: Soft. Nondistended. Nontender. EXTREMITIES: Normal range of motion. No clubbing or cyanosis. Peripheral pulses intact. No lower extremity edema NEUROLOGIC: Awake and alert. Oriented x 3. ASSESSMENT: Chest pain, troponins negative 3 Exertional shortness of breath Anemia, etiology unclear, patient reports 1 week history of black stools and regular NSAID use, status post EGD revealing antral gastritis Acute kidney injury Hypertension Hyperlipidemia Diabetes Morbid obesity PLAN: Continue current cardiac medications Resume losartan-hydrochlorothiazide Patient to undergo Lexiscan stress test today. If negative, he may be discharged home from a cardiac standpoint Further recommendations pending patient course Nurse practitioner note has been reviewed by physician. Signing provider agrees with the documented findings, assessment, and plan of care. Objective - Vital Signs Vital signs: Vital Signs Temp 98.5 F 08/23/22 06:40 Pulse 70 08/23/22 06:40 Resp 16 08/23/22 06:40 BP 107/67 08/23/22 06:40 Pulse Ox 98 08/23/22 08:50 FiO2 Intake & Output 08/22/22 08/23/22 08/23/22 18:59 06:59 18:59 Intake Total 118 Balance 118 Weight 119.748 kg Intake: Oral 118 Other: # Voids 1 1 - Labs CBC & Chem 7: 08/23/22 07:13 08/23/22 07:13 Labs: Abnormal Lab Results - Last 24 Hours (Table) 08/22/22 08/22/22 08/22/22 Range/Units 10:35 10:35 12:21 RBC 3.64 L (4.30-5.90) m/uL Hgb 10.0 L (13.0-17.5) gm/dL Hct 30.9 L (39.0-53.0) % Sodium (137-145) mmol/L BUN 24 H (9-20) mg/dL Creatinine 1.42 H (0.66-1.25) mg/dL Glucose 62 L (74-99) mg/dL POC Glucose (mg/dL) 63 L (70-110) mg/dL 08/22/22 08/22/22 08/23/22 Range/Units 17:10 21:11 06:08 RBC (4.30-5.90) m/uL Hgb (13.0-17.5) gm/dL Hct (39.0-53.0) % Sodium (137-145) mmol/L BUN (9-20) mg/dL Creatinine (0.66-1.25) mg/dL Glucose (74-99) mg/dL POC Glucose (mg/dL) 150 H 172 H 114 H (70-110) mg/dL 08/23/22 08/23/22 Range/Units 07:13 07:13 RBC 3.64 L (4.30-5.90) m/uL Hgb 10.0 L (13.0-17.5) gm/dL Hct 30.3 L (39.0-53.0) % Sodium 136 L (137-145) mmol/L BUN (9-20) mg/dL Creatinine (0.66-1.25) mg/dL Glucose (74-99) mg/dL POC Glucose (mg/dL) (70-110) mg/dL
[2022-08-23] MEDS: FLUoxetine HCL 20 MG CAP PO SCH (10:51)
[2022-08-23] MEDS: ASPIRIN 81 MG PO SCH (10:51)
[2022-08-23] MEDS: HYDROcodone/APAP 7.5-325MG 1 EACH TAB PO PRN ×2 (12:22→20:05)
[2022-08-23 12:24] LABS: Glucose,Whole Blood 176 mg/dL (70-110)
[2022-08-23] MEDS: PANTOPRAZOLE 40 MG/10 ML VIAL IVP SCH ×2 (12:43→20:06)
--- NOTE | 2022-08-23 12:49 | NM ---
EXAMINATION TYPE: NM stress lexiscan cardiolite DATE OF EXAM: 08/23/2022 COMPARISON: NONE HISTORY: CP, SOB TECHNIQUE: After the intravenous administration of 10.1 mCi Tc 99m Sestamibi - Cardiolite resting SP ECT images acquired 75 minutes post injection. The patient received 0.4mg Lexiscan, 26.2 mCi Tc 99m Sestamibi - Stress images obtained [address] injection FINDINGS: Review of stress and rest SPECT images demonstrates there is a small area of stress-induced reversibl e ischemia involving the apex. Gated analysis shows an estimated left ventricular ejection fraction of 48 %. IMPRESSION: 1. Findings are suggestive of a small area of stress-induced reversible ischemia involving the apex o f the myocardium.
[2022-08-23] MEDS: SODIUM CHLORIDE 0.9% 1,000 ML IV SCH (13:03)
[2022-08-23] MEDS ORDERED: ALPRAZolam 0.25 MG TAB PO PRN (13:59)
[2022-08-23] MEDS ORDERED: ALPRAZolam 0.5 MG TAB PO PRN (13:59)
[2022-08-23] MEDS ORDERED: NITROGLYCERIN SL TABS 0.4 MG TAB SUBLINGUAL PRN (13:59)
--- NOTE | 2022-08-23 14:16 | P.PN ---
Subjective Progress Note Date: 08/23/22 CHIEF COMPLAINT: Anemia with melanotic stools HISTORY OF PRESENT ILLNESS: Patient is status post EGD had revealed mild antral gastritis. Patient denies any abdominal pain. He's had no further black stool s. Hemoglobin has remained stable at 10. Patient had positive stress test and is scheduled to undergo a heart catheterization tomorrow. Patient denies any chest pain. Afebrile. PHYSICAL EXAM: VITAL SIGNS: Reviewed. GENERAL: Well-developed in no acute distress. HEENT: No sclera icterus. Extraocular movements grossly intact. Moist buccal mucosa. Head is atraumatic, normocephalic. ABDOMEN: Soft. Nondistended. Nontender. NEUROLOGIC: Alert and oriented. Cranial nerves II through XII grossly intact. ASSESSMENT: 1. Anemia with melanotic stools status post EGD revealing mild antral gastritis 2. Daily NSAID use 3. Chest pain with positive stress test followed by cardiology PLAN: -Recommend outpatient colonoscopy on Saturday -Continue IV Protonix -No NSAIDs Physician Computer Programming Professor note has been reviewed by physician. Signing provider agrees with the documented findings, assessment, and plan of care. CHIEF COMPLAINT: Anemia HISTORY OF PRESENT ILLNESS: The patient is a 61-year-old male with anemia. Upper endoscopy previously performed. Patient undergoing additional cardiac testing. Patient had GI bleeding. ROS: No reports of nausea and vomiting. No bowel movements. No fevers or chills. No new chest pain. No productive sputum PHYSICAL EXAM: VITAL SIGNS: Reviewed CONSTITUTIONAL: Well developed and in no acute distress. EYES: Conjuctivae without sclera icterus. Extraocular movements grossly intact. HEAD, EARS, NOSE, THROAT: Moist buccal mucosa. Head is atraumatic, normocephalic. Hears conversational speech. No nasal drainage. RESPIRATORY: Non-labored respirations and equal bilateral excursions. CARDIOVASCULAR: Palpable 2+ radial pulses. ABDOMEN: No peritonitis MUSCULOSKELETAL: No gross deformity of the lower extremities noted. No clubbing. No cyanosis. SKIN: Good skin turgor. Well perfused. NEUROLOGIC: Cranial nerves II through XII grossly intact. No focal or lateralizing signs. PSYCH: Appropriate affect. Alert and oriented to person, place and time. CLINICAL LABS: Reviewed. Hemoglobin 10.0, stable ASSESSMENT: 1. Anemia 2. GI bleed PLAN: 1. Colonoscopy pending for additional anemia workup 2. Monitor hemoglobin Objective - Vital Signs Vital signs: Vital Signs Temp 98.5 F 08/23/22 06:40 Pulse 70 08/23/22 06:40 Resp 16 08/23/22 06:40 BP 107/67 08/23/22 06:40 Pulse Ox 98 08/23/22 08:50 FiO2 Intake & Output 08/22/22 08/23/22 08/23/22 18:59 06:59 18:59 Intake Total 118 Balance 118 Weight 119.748 kg Intake: Oral 118 Other: # Voids 1 1 - Labs CBC & Chem 7: 08/23/22 07:13 08/23/22 07:13 Labs: Abnormal Lab Results - Last 24 Hours (Table) 08/22/22 08/22/22 08/23/22 Range/Units 17:10 21:11 06:08 RBC (4.30-5.90) m/uL Hgb (13.0-17.5) gm/dL Hct (39.0-53.0) % Sodium (137-145) mmol/L POC Glucose (mg/dL) 150 H 172 H 114 H (70-110) mg/dL 08/23/22 08/23/22 08/23/22 Range/Units 07:13 07:13 12:22 RBC 3.64 L (4.30-5.90) m/uL Hgb 10.0 L (13.0-17.5) gm/dL Hct 30.3 L (39.0-53.0) % Sodium 136 L (137-145) mmol/L POC Glucose (mg/dL) 176 H (70-110) mg/dL
--- NOTE | 2022-08-23 16:11 | CA ---
Lexiscan Nuclear Stress Test Report Name: Nba Lopez Exam Date: 08/23/2022 09:35 Exam Location: [facility] Ht (in): 65 Wt (lb): 264 BSA: 2.23 Ordering Phys: Joanna Melara Referring Phys: ,, Technologist: PREETHI,, Age: 61 Gender: M : 1960 Procedure CPT: Indications: Reflex order-Stress test ICD-10 Codes: Patient History: Chest Pain Medications: Meds past 24 hrs: Pretest Chest Pain: STRESS TEST Lexiscan Protocol Exercise Duration (min:sec): 01:[address] Depressions (mm): Angina Score: Dan Score: Resting HR (bpm): 69 Peak HR (bpm): 102 Resting BP (mmHg): 146 / 83 Peak BP (mmHg): 175 / 93 MPHR: 158 Target HR: 134 % MPHR: 65 METS: 1.0 Total Dose: Peak Dose: Atropine: Double Product: 18590 BP Response: Stress Termination: INFUSION COMPLETE Stress Symptoms: STOMACH ACHE Stress Summary: ECG ANALYSIS Resting ECG: Stress ECG: CONCLUSIONS Lexiscan infusion per protocol Baseline heart rate 69 beats a minute, Baseline blood pressure 146/83 was mercury Patient complained of abdominal discomfort through the procedure Heart rates increased to up to 100 beats a minute with normal blood pressure response No ECG is for ischemia Nuclear portion will be reported separately Dr. Chris Cox MD (Electronically Signed) Final Date: 23 August 2022 16:11
[2022-08-23 17:22] LABS: Glucose,Whole Blood 252 mg/dL (70-110)
[2022-08-23] MEDS: MORPHINE SULFATE 4 MG/ML SYRINGE IV PRN (17:55)
[2022-08-23 20:04] LABS: Glucose,Whole Blood 124 mg/dL (70-110)
[2022-08-23] MEDS: ATORVASTATIN 80 MG TAB PO SCH (20:05)
[2022-08-23] MEDS: INSULIN DETEMIR (LEVEMIR) 100 UNIT/ML SYR SQ SCH (20:06)
[2022-08-23 22:03] VITALS: RESP 16
[2022-08-23] MEDS: SODIUM CHLORIDE 0.9% 1,000 ML in EMPTY BAG 1 BAG IV SCH (23:41)
[2022-08-24] MEDS: SODIUM CHLORIDE 0.9% 1,000 ML IV SCH ×2 (02:05→07:57)
[2022-08-24] MEDS: PANTOPRAZOLE 40 MG/10 ML VIAL IVP SCH (04:43)
[2022-08-24] MEDS: FLUoxetine HCL 20 MG CAP PO SCH (04:43)
[2022-08-24] MEDS: ASPIRIN 81 MG PO SCH (04:44)
[2022-08-24 04:49] LABS: Glucose,Whole Blood 72 mg/dL (70-110)
[2022-08-24] MEDS: INSULIN ASPART (NovoLOG) 100 UNIT/ML VIAL SQ SCH (04:54)
[2022-08-24] MEDS ORDERED: ASPIRIN 325 MG TAB PO ONE (05:00)
[2022-08-24] MEDS ORDERED: ATORVASTATIN 80 MG TAB PO ONE (05:00)
--- NOTE | 2022-08-24 05:25 | P.PN ---
Subjective Progress Note Date: 08/23/22 Patient is a 61-year-old male with a known history of hypertension, hyperlipidemia, fibromyalgia, GERD, COPD, osteoarthritis with history of right hip arthroplasty in February 2022, bipolar disorder and occasional marijuana use presents to ER with complaints of chest pain and shortness of breath. Patient states that he is scheduled for outpatient hip replacement but his blood pressures are running too high. Patient states that over the past few weeks he has been feeling short of breath with exertion. Presents to ER with complaints of chest pain in the middle of the chest lasting for few minutes. Denies any radiation of the pain. Denies any associated shortness of breath or dizziness or lightheadedness. Patient states that he has been using pain medications/NSAIDs since his last surgery from February on daily basis. He also reports having darker stools for the past 1 week. Denies any abdominal pain. No nausea or vomiting. No cough or sputum production. No fever no chills. Denies any recent illnesses. Chest x-ray showed no acute cardiopulmonary process/disease. EKG showed sinus rhythm Laboratory data showed WBC 10.8 hemoglobin 10.7 and platelets 308 Sodium 134 potassium 3.8 chloride 99 bicarb is 25 BUN 26 and creatinine 1.54 and blood sugar is 164, A1c 7.5 Magnesium 1.6 Troponin x3 negative Loramyc are not elevated proBNP is 172, lipase 1251 08/23/2022 Patient is seen and evaluated and follow-up being followed by cardiology along with general surgery. Patient was cleared by surgery and underwent EGD. Patient is scheduled for stress testing today with cardiology which is currently pending and will await report. Patient is currently afebrile with no reports of nausea or vomiting noted. Patient is nothing by mouth for the procedure and will resume meals after. No reports of chest pain currently and is continued on telemetry monitoring. No reports of shortness of breath. Review of systems: Constitutional: No reports of fatigue, fever, or chills Cardiovascular: No reports of chest pain or palpitations Respiratory: No reports of shortness of breath or cough GI: No reports of nausea, vomiting, or diarrhea : No reports of dysuria or retention Neurovascular: No reports of weakness or numbness All medications have been reviewed Active Medications Hydrocodone Bitart/Acetaminophen (Hydrocodone/Apap 7.5-325mg 1 Each Tab) 1 each PO TID PRN PRN Reason: Pain Last Admin: 08/23/22 12:22 Dose: 1 each Alprazolam (Alprazolam 0.25 Mg Tab) 0.25 mg PO Q6HR PRN PRN Reason: Mild Anxiety Alprazolam (Alprazolam 0.5 Mg Tab) 0.5 mg PO Q6HR PRN PRN Reason: Moderate Anxiety Aspirin (Aspirin 81 Mg) 81 mg PO DAILY [facility] Last Admin: 08/23/22 10:51 Dose: 81 mg Aspirin (Aspirin 325 Mg Tab) 325 mg PO ONCE ONE Stop: 08/24/22 05:01 Atorvastatin Calcium (Atorvastatin 80 Mg Tab) 80 mg PO HS [facility] Last Admin: 08/22/22 21:05 Dose: 80 mg Atorvastatin Calcium (Atorvastatin 80 Mg Tab) 80 mg PO ONCE ONE Stop: 08/24/22 05:01 Budesonide/Formoterol Fumarate (Symbicort 160-4.5 Mcg Inhaler) 2 puff INHALATION RT-BID PRN PRN Reason: Shortness Of Breath Last Admin: 08/23/22 08:47 Dose: 2 puff Dextrose/Water (Dextrose 50% Syringe 50 Ml) 25 ml IVP PER PROTOCOL PRN; Protocol PRN Reason: Hypoglycemia Dextrose/Water (Dextrose 50% Syringe 50 Ml) 50 ml IVP PER PROTOCOL PRN; Protocol PRN Reason: Hypoglycemia Fluoxetine HCl (Fluoxetine Hcl 20 Mg Cap) 40 mg PO DAILY [facility] Last Admin: 08/23/22 10:51 Dose: 40 mg Sodium Chloride (Saline 0.9%) 1,000 mls @ 75 mls/hr IV [id number] [facility] Last Admin: 08/23/22 13:03 Dose: 75 mls/hr Heparin Sodium (Porcine) 10, (000 unit/ Sodium Chloride) 1,001 mls @ 999 mls/hr IRRIGATION ONCE PRN PRN Reason: INTRA-OP Stop: 08/24/22 23:00 Heparin Sodium (Porcine) 2,500 (unit/ Sodium Chloride) 250.5 mls @ 250 mls/hr IRRIGATION ONCE PRN PRN Reason: INTRA-OP Stop: 08/24/22 23:00 Sodium Chloride 1,000 ml/ IV (Solution) 1,000 mls @ 119.748 mls/hr IV .[id number] [facility] Insulin Aspart (Insulin Aspart (Novolog) 100 Unit/Ml Vial) 0 unit SQ ACHS [facility]; Protocol Last Admin: 08/23/22 13:01 Dose: 2 unit Insulin Detemir (Insulin Detemir (Levemir) 100 Unit/Ml Syr) 30 unit SQ HS [facility] Last Admin: 08/22/22 21:05 Dose: 30 unit Morphine Sulfate (Morphine Sulfate 4 Mg/Ml Syringe) 4 mg IV Q4HR PRN PRN Reason: Severe Pain (Scale 7 to 10) Last Admin: 08/22/22 18:24 Dose: 4 mg Naloxone HCl (Naloxone 0.4 Mg/Ml 1 Ml Vial) 0.2 mg IV Q2M PRN PRN Reason: Opioid Reversal Nitroglycerin (Nitroglycerin Sl Tabs 0.4 Mg Tab) 0.4 mg SUBLINGUAL Q5M PRN PRN Reason: Chest Pain Ondansetron HCl (Ondansetron 4 Mg/2 Ml Vial) 4 mg IVP Q8HR PRN PRN Reason: Nausea And Vomiting Last Admin: 08/21/22 21:10 Dose: 4 mg Pantoprazole Sodium (Pantoprazole 40 Mg/10 Ml Vial) 40 mg IVP BID [facility] Last Admin: 08/23/22 12:43 Dose: Not Given PHYSICAL EXAMINATION: Patient is lying in the bed comfortably, no acute distress, awake alert and oriented.. HEENT: Normocephalic. Neck is supple. Pupils reactive. Nostrils clear. Oral cavity is moist. Neck reveals no JVD, carotid bruits, or thyromegaly. CHEST EXAMINATION: Trachea is central. Symmetrical expansion. Lung chau clear to auscultation and percussion. CARDIAC: Normal S1, S2 with no gallops. No murmurs ABDOMEN: Soft. Bowel sounds present. Nontender. No organomegaly. No abdominal bruits. Extremities: reveal no edema. No clubbing or cyanosis Neurologically awake, alert, oriented x3 with well-coordinated movements. No focal deficits noted Skin: No rash or skin lesions. Psychiatric: Cooperative. Non-suicidal, Musculoskeletal: No joint swelling or deformity. Normal range of motion. Assessment: Atypical chest pain. Ruled out ACS. abnormal stress on 08/23/2022 Dark-colored stools x1 week. Possible GI bleed, ruled out Recent history of NSAID use on daily basis Acute kidney injury likely prerenal, improving Diabetes type 2 uncontrolled with A1c 7.5 Fibromyalgia GERD Hypertension Hyperlipidemia Osteoarthritis Bipolar disorder Marijuana use DVT prophylaxis with SCDs Plan: Patient will be continued on telemetry monitoring. Serial EKG and troponin x3 negative. Patient underwent stress testing Jennifer scan and was positive for a small area of inducible ischemia and cardiology following planning on cardiac catheterization in the morning. Patient will be nothing by mouth at midnight for the procedure. Continue IV hydration and continued IV Protonix. Recommend repeat labs in the a.m. Surgery evaluated the patient underwent EGD showing gastritis with no active bleeding noted and has cleared the patient for discharge Monitor renal function. Losartan/hydrochlorothiazide is on hold. Will await cardiac catheterization report and clearance from cardiology Possible discharge in the next 24-48 hours The impression and plan of care has been dictated by Juanita Gómez, Nurse Practitioner as directed. Dr. Aminata MD I have performed a history and examination and MDM of this patient, discussed the same with the dictator, and agree with the dictator's assessment and plan as written ,documented as a scribe. Based on total visit time, I have performed more than 50% of the visit. Objective - Vital Signs Vital signs: Vital Signs Temp 98.5 F 08/23/22 06:40 Pulse 70 08/23/22 06:40 Resp 16 08/23/22 06:40 BP 107/67 08/23/22 06:40 Pulse Ox 98 08/23/22 08:50 FiO2 Intake & Output 08/22/22 08/23/22 08/23/22 18:59 06:59 18:59 Intake Total 118 Balance 118 Weight 119.748 kg Intake: Oral 118 Other: # Voids 1 1 - Labs CBC & Chem 7: 08/23/22 07:13 08/23/22 07:13 Labs: Abnormal Lab Results - Last 24 Hours (Table) 08/22/22 08/22/22 08/22/22 Range/Units 10:35 10:35 12:21 RBC 3.64 L (4.30-5.90) m/uL Hgb 10.0 L (13.0-17.5) gm/dL Hct 30.9 L (39.0-53.0) % Sodium (137-145) mmol/L BUN 24 H (9-20) mg/dL Creatinine 1.42 H (0.66-1.25) mg/dL Glucose 62 L (74-99) mg/dL POC Glucose (mg/dL) 63 L (70-110) mg/dL 08/22/22 08/22/22 08/23/22 Range/Units 17:10 21:11 06:08 RBC (4.30-5.90) m/uL Hgb (13.0-17.5) gm/dL Hct (39.0-53.0) % Sodium (137-145) mmol/L BUN (9-20) mg/dL Creatinine (0.66-1.25) mg/dL Glucose (74-99) mg/dL POC Glucose (mg/dL) 150 H 172 H 114 H (70-110) mg/dL 08/23/22 08/23/22 Range/Units 07:13 07:13 RBC 3.64 L (4.30-5.90) m/uL Hgb 10.0 L (13.0-17.5) gm/dL Hct 30.3 L (39.0-53.0) % Sodium 136 L (137-145) mmol/L BUN (9-20) mg/dL Creatinine (0.66-1.25) mg/dL Glucose (74-99) mg/dL POC Glucose (mg/dL) (70-110) mg/dL
[2022-08-24] MEDS: SODIUM CHLORIDE 0.9% 1,000 ML in EMPTY BAG 1 BAG IV SCH (06:37)
[2022-08-24] MEDS ORDERED: HEPARIN SODIUM,PORCINE 2,500 UNIT in SODIUM CHLORIDE 0.9% 250 ML IRRIGATION PRN (07:00)
[2022-08-24] MEDS ORDERED: SODIUM CHLORIDE 0.9% 1,000 ML IV ONE (07:00)
[2022-08-24] MEDS ORDERED: HEPARIN SODIUM,PORCINE 10,000 UNIT in SODIUM CHLORIDE 0.9% 1,000 ML IRRIGATION PRN (07:00)
[2022-08-24] MEDS ORDERED: fentaNYL (PF) 50 MCG/ML 2 ML AMP IV ONE (07:08)
[2022-08-24] MEDS ORDERED: MIDAZOLAM 2 MG/2 ML VIAL IV ONE ×2 (07:08)
[2022-08-24] MEDS ORDERED: LIDOCAINE 1% INJ 10MG/ML (5 ML VIAL-PF) SQ ONE (07:09)
[2022-08-24] MEDS ORDERED: VERAPAMIL SYRINGE (5 MG/10 ML) INTRAARTER ONE (07:11)
[2022-08-24] MEDS ORDERED: HEPARIN SODIUM 1,000 UN/ML (10ML VL) IV ONE (07:13)
[2022-08-24] MEDS ORDERED: IOPAMIDOL-370 125ML BTL INJ ONE (07:25)
[2022-08-24] MEDS ORDERED: RX INFO: IV CONTRAST WAS GIVEN 1 EACH MISC MISCELLANE PRN (07:35)
--- NOTE | 2022-08-24 07:41 | P.CARDCATH ---
Date of Procedure: 08/24/22 Description of Procedure: Cardiac Catheterization: The patient is a 61-year-old male with known history of hypertension, hyperlipidemia and diabetes mellitus who presented with symptoms of dyspnea and chest discomfort, underwent an MPI that showed evidence of stress-induced ischemia. He was evaluated by Dr. Cox. Recommendations were made regarding cardiac catheterization, the risks and the complications were discussed with the patient who is in full understanding and agreement. Procedure Description: Patient was brought to quality control lab technician in fasting semi-sedated state after receiving Fentanyl and Benadryl achieiving moderate conscious sedated state. Using Xylocaine Anesthesia and Seldinger technique, a 6-[place]an sheath was introduced in the right radial artery . Subsequently, selective coronary angiography was performed using a 3.5-[place] 5 bend Star catheter. Multiple views of the coronary artery including hemiaxial views were obtained. The 5-[place]an pigtail catheter was used to cross the aortic valve and LVEDP was calculated. Following that, catheter and sheath were removed. Hemostasis was obtained with deployment of TR band . There was no immediate complication. Patient was returned to room in stable condition. Of note, the patient received a total of 5000 units of intravenous heparin as well as intra-arterial verapamil. Findings: Fluoroscopy: Calcification of the LAD was noted. Left main: This is a large size vessel, bifurcating into LAD and left circumflex, left main has no high-grade stenosis LAD: This is a large size vessel giving rise to a large diagonal branch, the first septal backbreaker is a large vessel, branching that has a 50% plaque in the midsegment. The LAD and the diagonal branch have no evidence of high-grade stenosis Left circumflex: This is a large nondominant vessel giving rise to 2 obtuse marginal branch, the second one is large in caliber, the left circumflex and its branches had no evidence of high-grade stenosis RCA: This is a large dominant vessel bifurcating distally into PDA and PLV, the RCA and its branches have no evidence of high-grade stenosis Left Ventriculogram: Not performed Hemodynamics: There was no gradient across the aortic valve, LVEDP was 14-16 mmHg Conclusion: 1. Calcified LAD 2. Mild to moderate disease in the first septal backbreaker 3. Right dominance 4. No significant obstructive disease in the left circumflex and the RCA Recommendations: The patient will continue on maximum medical therapy with aggressive coronary risks modifications. The findings and the recommendations were discussed with the patient and the family and they were in full understanding and agreement. Duration of sedation is 20 minutes.
[2022-08-24] MEDS ORDERED: SODIUM CHLORIDE 0.9% 1,000 ML IV SCH (07:45)
[2022-08-24 07:47] VITALS: TEMP 97.9
[2022-08-24] MEDS: MORPHINE SULFATE 4 MG/ML SYRINGE IV PRN (07:59)
[2022-08-24] MEDS ORDERED: LOSARTAN-HCTZ 50-12.5 MG 1 EACH TAB PO SCH (09:00)
[2022-08-24 09:05] LABS: African American GFR (CKD) 65.9 (60.0-200.0); BUN/Creat Ratio 14.89 Ratio (12.00-20.00); Blood Urea Nitrogen 19.8 mg/dL (9.0-27.0); Calcium 8.7 mg/dL (8.7-10.3); Carbon Dioxide 23.9 mmol/L (20.0-27.5); Non-African American GFR(CKD) 56.9 (60.0-200.0); Potassium 4.1 mmol/L (3.5-5.5)
[2022-08-24 11:29] LABS: Glucose,Whole Blood 167 mg/dL (70-110)
[2022-08-24 11:48] VITALS: BP 149/86; PULSE 69
--- NOTE | 2022-08-24 12:58 | P.PN ---
Subjective Progress Note Date: 08/24/22 CHIEF COMPLAINT: Anemia with melanotic stools HISTORY OF PRESENT ILLNESS: Patient is status post EGD had revealed mild antral gastritis. Patient denies any abdominal pain. He's had no further black stool s. Patient had positive stress test and had heart catheterization today. Patient did not require any stents. They recommending medical therapy treatment. Discussed with cardiology nurse practitioner they have cleared patient to proceed with colonoscopy on Saturday. Afebrile. Last hemoglobin from yesterday stable at 10. PHYSICAL EXAM: VITAL SIGNS: Reviewed. GENERAL: Well-developed in no acute distress. HEENT: No sclera icterus. Extraocular movements grossly intact. Moist buccal mucosa. Head is atraumatic, normocephalic. ABDOMEN: Soft. Nondistended. Nontender. NEUROLOGIC: Alert and oriented. Cranial nerves II through XII grossly intact. ASSESSMENT: 1. Anemia with melanotic stools status post EGD revealing mild antral gastritis 2. Daily NSAID use 3. Chest pain with positive stress test followed by cardiology PLAN: -Patient scheduled for outpatient colonoscopy on Saturday with Dr. Vaz -Continue PPI -No NSAIDs Physician Eating Disorder Specialist note has been reviewed by physician. Signing provider agrees with the documented findings, assessment, and plan of care. CHIEF COMPLAINT: Anemia HISTORY OF PRESENT ILLNESS: The patient is a 61-year-old male with anemia. He h ad cardiac catheterization yesterday. Reports have moderate chest pain prompting additional cardiac assessment. Today, reports chest pain has improved. No hematemesis. No blood in stools. ROS: No reports of nausea and vomiting. No bowel movements. No fevers or chills. No productive sputum. Morbid obesity, 40.1 PHYSICAL EXAM: VITAL SIGNS: Reviewed CONSTITUTIONAL: Well developed and in no acute distress. EYES: Conjuctivae without sclera icterus. Extraocular movements grossly intact. HEAD, EARS, NOSE, THROAT: Moist buccal mucosa. Head is atraumatic, normocephalic. Hears conversational speech. No nasal drainage. RESPIRATORY: Non-labored respirations and equal bilateral excursions. CARDIOVASCULAR: Palpable 2+ radial pulses. ABDOMEN: No peritonitis. Obese MUSCULOSKELETAL: No gross deformity of the lower extremities noted. No clubbing. No cyanosis. SKIN: Good skin turgor. Well perfused. NEUROLOGIC: Cranial nerves II through XII grossly intact. No focal or lateralizing signs. PSYCH: Appropriate affect. Alert and oriented to person, place and time. CLINICAL LABS: Reviewed. Hemoglobin 10.0, stable ASSESSMENT: 1. Anemia 2. GI bleed 3. Status post cardiac catheterization 4. Morbid obesity due to excess calories, BMI 40.1 PLAN: 1. Pending colonoscopy for anemia. 2. Stable for discharge once medically cleared. Objective - Vital Signs Vital signs: Vital Signs Temp 97.9 F 08/24/22 07:35 Pulse 69 08/24/22 11:20 Resp 16 08/24/22 11:20 BP 149/86 08/24/22 11:20 Pulse Ox 99 08/24/22 11:20 FiO2 Intake & Output 08/23/22 08/24/22 08/24/22 18:59 06:59 18:59 Intake Total 300 Balance 300 Intake: IV 300 Other: Voiding Method Toilet # Voids 1 1 - Labs CBC & Chem 7: 08/23/22 07:13 08/24/22 05:32 Labs: Abnormal Lab Results - Last 24 Hours (Table) 08/23/22 08/23/22 08/24/22 Range/Units 17:21 20:02 05:32 Est GFR (CKD-EPI)NonAf 56.9 L (60.0-200.0) POC Glucose (mg/dL) 252 H 124 H (70-110) mg/dL 08/24/22 Range/Units 11:27 Est GFR (CKD-EPI)NonAf (60.0-200.0) POC Glucose (mg/dL) 167 H (70-110) mg/dL
--- NOTE | 2022-08-24 15:13 | P.DS ---
Providers Date of admission: 08/21/22 18:47 Expected date of discharge: 08/24/22 Attending physician: Isreal Jones Consults: 08/21/22 18:46 Consult Physician Routine Consulting Provider: Madeleine Garrett Consult Reason/Comments: cp Do you want consulting provider notified?: Yes 08/22/22 09:19 Consult Physician Urgent Consulting Provider: Abraham Walters Consult Reason/Comments: black stools for the last week, shortness of breath, anemia Do you want consulting provider notified?: Yes Primary care physician: Palmira Zepeda Hospital Course: Final diagnosis Atypical chest pain. Ruled out ACS. abnormal stress on 08/23/2022 with cardiac catheterization on 08/24 and no surgical intervention Dark-colored stools x1 week. Possible GI bleed, ruled out Recent history of NSAID use on daily basis Acute kidney injury likely prerenal, improving Diabetes type 2 uncontrolled with A1c 7.5 Fibromyalgia GERD Hypertension Hyperlipidemia Osteoarthritis Bipolar disorder Marijuana use DVT prophylaxis with SCDs Discharge disposition Patient is being discharged in a stable condition with guarded prognosis to home. Patient will follow-up with Dr. Zepeda in the outpatient setting upon discharge. Patient is to follow-up with cardiology outpatient as well as general surgery for colonoscopy outpatient as scheduled. Total time taken is greater than 35 minutes. Hospital course This is a 61-year-old male who was recently admitted with chest pain and being closely monitored with cardiology and general surgery following. Patient also was having some dark stools noted and underwent EGD showing gastritis and patient had been taking an excessive amount of NSAIDs outpatient. Patient is planned for an outpatient colonoscopy next week with general surgery. Patient did have an area of reducible ischemia is noted on stress test and recommended cardiac catheterization which was negative and did not require any stenting with some mild cardiac disease. Cardiology recommending maximizing medical management and outpatient follow-up along with lifestyle risk factor modifications. Patient will follow-up with cardiology in the outpatient setting and instructed to follow-up with primary care provider on discharge. Patient has been cleared by consultations for discharge today. Please refer to consultation notes for further HPI. Currently no reports of chest pain, shortnes s of breath, or palpitations. Patient is afebrile. No reports of nausea or vomiting and patient is tolerating diet. Patient will be discharged home today. Guarded prognosis. Physical exam: Gen: This is a 61-year-old male who is awake, alert and oriented 3, well- developed, well-nourished, morbidly obese HEENT: Head is atraumatic, normocephalic. Pupils equal, round. Sclerae is anicteric. NECK: Supple. No JVD. No lymphadenopathy. No thyromegaly. LUNGS: Clear to auscultation. No wheezes or rhonchi. No intercostal retractions. HEART: Regular rate and rhythm. No murmur. ABDOMEN: Soft. Bowel sounds are present. No masses. No tenderness. EXTREMITIES: No pedal edema. No calf tenderness. NEUROLOGICAL: Patient is awake, alert and oriented x3. Cranial nerves 2 through 12 are grossly intact. Please refer to medication reconciliation sheet for a list of medications. The impression and plan of care has been dictated by Juanita Gómez, Nurse Practitioner as directed. Dr. Aminata MD I have performed a history and examination and MDM of this patient, discussed the same with the dictator, and agree with the dictator's assessment and plan as written ,documented as a scribe. Based on total visit time, I have performed more than 50% of the visit. Patient Condition at Discharge: Fair Plan - Discharge Summary Discharge Rx Participant: No New Discharge Prescriptions: New Aspirin 81 mg PO DAILY #30 tab Peg 3350 (236 gm/Btl) + Lytes [Golytely Lavage] 4,000 ml PO DIRECTED #1 each Nitroglycerin Sl Tabs [Nitrostat] 0.4 mg SUBLINGUAL Q5M PRN #30 tab PRN Reason: Chest Pain Continue Budesonide/Formoterol Fumarate [Symbicort 160-4.5 Mcg Inhaler] 2 puff INHALATION RT-BID PRN PRN Reason: Shortness Of Breath Omeprazole 20 mg PO DAILY Losartan/Hydrochlorothiazide [Losartan-Hctz 100-25 mg Tab] 1 tab PO DAILY Linagliptin [Tradjenta] 5 mg PO DAILY FLUoxetine HCL [PROzac] 40 mg PO DAILY Insulin Degludec [Tresiba] 30 units SQ HS Diclofenac Sodium [Voltaren] 75 mg PO BID 30 Days #60 tab Turmeric Root Extract [Turmeric] 500 mg PO DAILY Magnesium Oxide [Mag-Ox] 400 mg PO DAILY metFORMIN HCL [Glucophage] 1,000 mg PO BID Cariprazine HCl [Vraylar] 3 mg PO HS HYDROcodone/APAP 7.5-325MG [[place] 7.5-325] 1 tab PO TID PRN #9 tab PRN Reason: Pain Atorvastatin [Lipitor] 80 mg PO HS #30 tab Discharge Medication List Budesonide/Formoterol Fumarate [Symbicort 160-4.5 Mcg Inhaler] 2 puff INHALATION RT-BID PRN 10/04/21 [History] FLUoxetine HCL [PROzac] 40 mg PO DAILY 10/04/21 [History] Linagliptin [Tradjenta] 5 mg PO DAILY 10/04/21 [History] Losartan/Hydrochlorothiazide [Losartan-Hctz 100-25 mg Tab] 1 tab PO DAILY 10/04/21 [History] Omeprazole 20 mg PO DAILY 10/04/21 [History] Insulin Degludec [Tresiba] 30 units SQ HS 01/31/22 [History] Diclofenac Sodium [Voltaren] 75 mg PO BID 30 Days #60 tab 02/09/22 [Rx] Cariprazine HCl [Vraylar] 3 mg PO HS 08/21/22 [History] Magnesium Oxide [Mag-Ox] 400 mg PO DAILY 08/21/22 [History] Turmeric Root Extract [Turmeric] 500 mg PO DAILY 08/21/22 [History] metFORMIN HCL [Glucophage] 1,000 mg PO BID 08/21/22 [History] Peg 3350 (236 gm/Btl) + Lytes [Golytely Lavage] 4,000 ml PO DIRECTED #1 each 08/23/22 [Rx] Aspirin 81 mg PO DAILY #30 tab 08/24/22 [Rx] Atorvastatin [Lipitor] 80 mg PO HS #30 tab 08/24/22 [Rx] HYDROcodone/APAP 7.5-325MG [[place] 7.5-325] 1 tab PO TID PRN #9 tab 08/24/22 [Rx] Nitroglycerin Sl Tabs [Nitrostat] 0.4 mg SUBLINGUAL Q5M PRN #30 tab 08/24/22 [Rx] Follow up Appointment(s)/Referral(s): Palmira Zepeda DO [Primary Care Provider] - 1-2 days Abraham Walters MD [STAFF PHYSICIAN] - 08/27/22 Ambulatory/Diagnostic Orders: Basic Metabolic Panel [LAB.AMB] Time Frame: 3 Days, Location: None Selected Patient Instructions/Handouts: *Surgery [facility] - After Heart Catheterization - [employer] [facility] [facility] Instructions Activity/Diet/Wound Care/Special Instructions: Patient scheduled for outpatient colonoscopy on 08/27/[address] walters OR scheduling will contact patient with time of colonoscopy Start colonoscopy bowel prep Saturday. Start clear liquid diet Saturday. Nothing by mouth after midnight on Saturday. heart healthy diet activity is restricted till you see your doctor we recommend to avoid NSAIDS like no motrin, no ibuprofen, no naproxen, no mobic or other, we recommend to talk to your doctor before using pain medication you can use low dose of aspirin if indicated by your doctor No flexing at the wrist or lifting anything heavier than 5 pounds for 5 days Remove any dressing over puncture site in 24 hours and leave open to air Do not submerge wrist in water for 3 days If site bleeds, hold pressure for 10min, if bleeding doesn't subside have someone drive you to ER. Discharge Disposition: HOME SELF-CARE
== END 2022-08-24 12:49 | disposition home or self-care (01) ==
LOC: EC 16:53 → 6NMEDSUR 18:47
PROVIDERS: ADMIT Hospitalist; ATTEND Hospitalist
DX: R07.89 Other chest pain (principal); K29.50 Unspecified chronic gastritis without bleeding; E11.65 Type 2 diabetes mellitus with hyperglycemia; M16.11 Unilateral primary osteoarthritis, right hip; I25.10 Atherosclerotic heart disease of native coronary artery without angina pectoris; J45.909 Unspecified asthma, uncomplicated; M79.7 Fibromyalgia; K21.9 Gastro-esophageal reflux disease without esophagitis; E78.5 Hyperlipidemia, unspecified; I10 Essential (primary) hypertension; F31.9 Bipolar disorder, unspecified; D64.9 Anemia, unspecified; N17.9 Acute kidney failure, unspecified; F12.90 Cannabis use, unspecified, uncomplicated; E66.01 Morbid (severe) obesity due to excess calories; Z96.641 Presence of right artificial hip joint; Z79.899 Other long term (current) drug therapy; Z79.51 Long term (current) use of inhaled steroids; Z79.84 Long term (current) use of oral hypoglycemic drugs; Z79.4 Long term (current) use of insulin; Z79.1 Long term (current) use of non-steroidal anti-inflammatories (NSAID); Z88.0 Allergy status to penicillin
CPT/HCPCS: 96361 ×3; 96372; 96374; 96375; 99285; 36415; 94640; 94760; 93005; 93017; 93306; 83880; 80053; 80048 ×3; 83690; 83735; 84484; 85025 ×3; 85610; 85730; 83036; 71045; 78452; 43239; G0378 ×5; C1769 ×2; C1894; A9500; J2250; J2270 ×4; J2405; J2001; J3010; J1644; J2785; C9113 ×3; Q9967; 88305; 93458

== ENCOUNTER 2022-08-30 07:39 | Day surgery (SDC) | payer MEDICARE, OTHER ==
[2022-08-29 11:31] VITALS: BMI 38.7
[~2022-08-30 07:39] MED LIST changes: -ACETAMINOPHEN TAB 500 MG TAB PO PRN; +HEPARIN SODIUM 1,000 UN/ML (10ML VL) ONE; -ONDANSETRON 4 MG/2 ML VIAL IVP PRN; -TRANEXAMIC ACID IN NACL,ISO-OS 1,000 MG in SALINE 1 100ML.BAG IVPB PRN; +VERAPAMIL 2.5 MG/ML 2 ML AMP ONE; +fentaNYL (PF) 50 MCG/ML 2 ML AMP ONE
[2022-08-30] MEDS ORDERED: LACTATED RINGERS 1,000 ML IV ONE (08:10)
[2022-08-30 08:21] VITALS: TEMP 97.2
[2022-08-30 08:25] LABS: Glucose,Whole Blood 119 mg/dL (70-110)
[2022-08-30] MEDS ORDERED: PROPOFOL 10 MG/ML 20 ML VIAL IV ONE (08:39)
--- NOTE | 2022-08-30 08:39 | P.GSHP ---
History of Present Illness H&P Date: 08/30/22 Chief Complaint: Anemia, GI bleed This a 51-year-old male presents today for colonoscopy. Patient undergoing workup for anemia. Past Medical History Past Medical History: Asthma, Chest Pain / Angina, COPD, Diabetes Mellitus, GERD/Reflux, Hyperlipidemia, Hypertension, Osteoarthritis (OA) Additional Past Medical History / Comment(s): hx Hemorrhoids, hx colon polyps., back pain & Left hip pain (waiting for hip surgery)., states rash on legs from rubbing together, hospitalized 08/21 to 08/24/22- pt states for sob & chest pain - heart cath done and egd for anemia, hx of nsaid use with black stools. History of Any Multi-Drug Resistant Organisms: None Reported Past Surgical History: Heart Catheterization, Hernia Repair, Orthopedic Surgery, Tonsillectomy Additional Past Surgical History / Comment(s): states hx of fall with right hip surgery Feb 2022 ., Left knee arthroscopy., surgery for undescended testicles, COLONOSCOPY., EGD, EYE SURGERY CHILD, heart cath [facility] 08/2022. Past Anesthesia/Blood Transfusion Reactions: No Reported Reaction Past Psychological History: Bipolar Smoking Status: Never smoker Past Alcohol Use History: Occasional Past Drug Use History: Marijuana Additional Drug Use History / Comment(s): Marijuana Daily., Aware no use 24 hrs prior to procedure. - Past Family History Father Family Medical History: Cancer Additional Family Medical History / Comment(s): Pancreatic cancer - at 58. Mother Family Medical History: No Reported History, Coronary Artery Disease (CAD) Additional Family Medical History / Comment(s): "Stent in heart, had blood clots." Medications and Allergies Home Medications Medication Instructions Recorded Confirmed Type Budesonide/Formoterol Fumarate 2 puff INHALATION RT-BID 10/04/21 08/30/22 History [Symbicort 160-4.5 Mcg Inhaler] FLUoxetine HCL [PROzac] 40 mg PO DAILY 10/04/21 08/30/22 History Linagliptin [Tradjenta] 5 mg PO DAILY 10/04/21 08/30/22 History Losartan/Hydrochlorothiazide 1 tab PO DAILY 10/04/21 08/30/22 History [Losartan-Hctz 100-25 mg Tab] Omeprazole 20 mg PO DAILY 10/04/21 08/30/22 History Insulin Degludec [Tresiba] 30 units SQ HS 01/31/22 08/30/22 History Cariprazine HCl [Vraylar] 3 mg PO HS 08/21/22 08/30/22 History Magnesium Oxide [Mag-Ox] 400 mg PO DAILY 08/21/22 08/30/22 History Turmeric Root Extract [Turmeric] 3 cap PO DAILY 08/21/22 08/30/22 History Aspirin 81 mg PO DAILY #30 tab 08/24/22 08/30/22 Rx Atorvastatin [Lipitor] 80 mg PO HS #30 tab 08/24/22 08/30/22 Rx HYDROcodone/APAP 7.5-325MG [[place] 1 tab PO TID PRN #9 tab 08/24/22 08/30/22 Rx 7.5-325] Nitroglycerin Sl Tabs [Nitrostat] 0.4 mg SUBLINGUAL Q5M PRN #30 tab 08/24/22 08/30/22 Rx Albuterol Inhaler [Ventolin Hfa 1 puff INHALATION DIRECTED PRN 08/29/22 08/30/22 History Inhaler] metFORMIN HCL 1,000 mg PO BID 08/29/22 08/30/22 History Allergies Allergy/AdvReac Type Severity Reaction Status Date / Time empagliflozin Allergy High blood Verified 08/30/22 08:09 [From Jardiance] sugar Penicillins Allergy Rash/Hives Verified 08/30/22 08:09 NSAIDS (Non-Steroidal AdvReac Unknown GI BLEED Verified 08/30/22 08:09 Anti-Inflamma Surgical - Exam Vital Signs Temp Pulse Resp BP Pulse Ox 97.2 F L 86 16 153/73 98 08/30/22 08:03 08/30/22 08:03 08/30/22 08:03 08/30/22 08:03 08/30/22 08:03 - General well developed, well nourished, no distress - Eyes PERRL - ENT normal pinna - Neck no masses - Respiratory normal expansion - Cardiovascular Rhythm: regular - Abdomen Abdomen: soft Results - Labs Abnormal Lab Results - Last 24 Hours (Table) 08/30/22 Range/Units 08:17 POC Glucose (mg/dL) 119 H (70-110) mg/dL Assessment and Plan Assessment: Anemia, GI bleed. We'll perform colonoscopy.
--- NOTE | 2022-08-30 08:55 | P.OP ---
Date of Procedure: 08/30/22 Preoperative Diagnosis: GI bleed Postoperative Diagnosis: Diverticulosis Procedure(s) Performed: Colonoscopy Anesthesia: MAC Surgeon: Abraham Vaz Pathology: none sent Condition: stable Disposition: PACU Description of Procedure: The patient's placed on the endoscopy table in the lateral position. He received IV sedation. Digital rectal exam was performed. This revealed no abnormalities. Flexible colonoscope was then placed patient anus and passed throughout the entire colon. The ileocecal valve was visualized. The cecum, ascending and transverse colon appeared normal. In the descending and sigmoid colon there is mild diverticular changes. Scope was brought back the rectum and this appeared normal. Scope withdrawn for patient. There is no evidence of any GI bleed. The patient states that his melanotic stopped After he stopped taking NSAIDs. Is presumed that he had a upper GI ble ed due to NSAID use.
[2022-08-30 09:25] VITALS: BP 155/89; PULSE 74; RESP 18
== END 2022-08-30 09:37 | disposition home or self-care (01) ==
LOC: ORWHC2ENDO 07:39
PROVIDERS: ATTEND Surgery
DX: K57.30 Diverticulosis of large intestine without perforation or abscess without bleeding (principal); J44.9 Chronic obstructive pulmonary disease, unspecified; E11.9 Type 2 diabetes mellitus without complications; K21.9 Gastro-esophageal reflux disease without esophagitis; E78.5 Hyperlipidemia, unspecified; I10 Essential (primary) hypertension; D64.9 Anemia, unspecified; F31.9 Bipolar disorder, unspecified; F10.90 Alcohol use, unspecified, uncomplicated; M19.90 Unspecified osteoarthritis, unspecified site; F12.90 Cannabis use, unspecified, uncomplicated; Z86.010 Personal history of colon polyps; Z95.5 Presence of coronary angioplasty implant and graft; Z98.890 Other specified postprocedural states; Z90.89 Acquired absence of other organs; Z82.49 Family history of ischemic heart disease and other diseases of the circulatory system; Z79.899 Other long term (current) drug therapy; Z79.84 Long term (current) use of oral hypoglycemic drugs; Z79.51 Long term (current) use of inhaled steroids; Z79.82 Long term (current) use of aspirin; Z88.0 Allergy status to penicillin; Z88.6 Allergy status to analgesic agent
CPT/HCPCS: 45378; J2704

== ENCOUNTER 2022-12-06 14:09 | Observation (INO) | payer MEDICARE, OTHER ==
[2022-12-06 14:28] LABS: Glucose,Whole Blood 261 mg/dL (70-110)
[2022-12-06] MEDS ORDERED: RX INFO: IV CONTRAST WAS GIVEN 1 EACH MISC MISCELLANE PRN (14:47)
[2022-12-06] MEDS ORDERED: ACETAMINOPHEN TAB 500 MG TAB PO STA (14:48)
[2022-12-06] MEDS ORDERED: METOCLOPRAMIDE 5 MG/ML 2 ML VIAL IVP STA (14:48)
[2022-12-06] MEDS ORDERED: diphenhydrAMINE 50 MG/ML 1 ML VIAL IVP STA (14:48)
[2022-12-06 15:06] LABS: ALT 25 U/L (4-49); AST 34 U/L (17-59); African American GFR (CKD) 60 (>60 ml/min/1.73 sqM); Albumin 3.6 g/dL (3.5-5.0); Alkaline Phosphatase 78 U/L (38-126); Anion Gap 14 mmol/L; Blood Urea Nitrogen 23 mg/dL (9-20); Calcium 8.1 mg/dL (8.4-10.2); Carbon Dioxide 19 mmol/L (22-30); Chloride 97 mmol/L (98-107); Glucose 251 mg/dL (74-99); Lipase 44 U/L (23-300); Magnesium 1.1 mg/dL (1.6-2.3); Non-African American GFR(CKD) 52 (>60 ml/min/1.73 sqM); Potassium 3.3 mmol/L (3.5-5.1); Sodium 130 mmol/L (137-145); Total Bilirubin 0.4 mg/dL (0.2-1.3); Total Protein 6.5 g/dL (6.3-8.2)
[2022-12-06 15:12] LABS: Basophils % (A) 0 %; Eosinophils % (A) 1 %; HCT 35.9 % (39.0-53.0); HGB 11.6 gm/dL (13.0-17.5); Lymphocytes # (A) 0.8 k/uL (1.0-4.8); Lymphocytes % (A) 17 %; MCH 26.9 pg (25.0-35.0); MCHC 32.4 g/dL (31.0-37.0); MCV 83.2 fL (80.0-100.0); Mean Platelet Volume 8.1; Monocytes # (A) 0.5 k/uL (0-1.0); Monocytes % (A) 10 %; Neutrophils # (A) 3.3 k/uL (1.3-7.7); Neutrophils % (A) 69 %; Platelet Count 250 k/uL (150-450); RBC 4.32 m/uL (4.30-5.90); RDW 15.8 % (11.5-15.5); WBC 4.8 k/uL (3.8-10.6)
[2022-12-06 15:13] LABS: Partial Thromboplastin Time 23.3 sec (22.0-30.0); Prothrombin Time 10.9 sec (9.0-12.0)
[2022-12-06 15:14] LABS: NT-Pro-B-Type Natriuretic Pept 96 pg/mL
--- NOTE | 2022-12-06 16:28 | CT ---
EXAMINATION TYPE: CT chest angio for PE CT DLP: 929.8 mGycm, Automated exposure control for dose reduction was used. DATE OF EXAM: 12/06/2022 4:14 PM COMPARISON: CLINICAL INDICATION:Male, 62 years old with history of elevated d-dimer; elevated d-dimer TECHNIQUE/CONTRAST: CTA scan of the thorax is performed with IV Contrast, patient injected with 80cc mL of Isovue 370, OR P images are created and reviewed these are created on a separate workstation.. FINDINGS: Pulmonary Artery: There is no evidence for a central filling defect within the pulmonary vasculature to suggest acute pulmonary embolism. Limited evaluation of the segmental and subsegmental branches se condary to bolus timing. The pulmonary artery is of normal size. Lungs/Pleura: No focal consolidation, pneumothorax or pleural effusion. Airway: Large airways are patent. Heart: Heart is within normal limits for size. Vasculature: No evidence of aortic aneurysm. Mediastinum: No gross evidence of adenopathy. Musculoskeletal: Mild degenerative disc disease changes are present throughout the thoracolumbar spin e. Soft Tissues: Unremarkable. Lower neck: No significant findings. Upper Abdomen: No significant findings. IMPRESSION: 1. No central pulmonary embolus. Exam limited by bolus timing. 2. No acute process.
--- NOTE | 2022-12-06 16:30 | CT ---
EXAMINATION TYPE: CT brain wo con CT DLP: 1129.2 mGycm, Automated exposure control for dose reduction was used. DATE OF EXAM: 12/06/2022 4:14 PM COMPARISON: 07/17/2021. CLINICAL INDICATION:Male, 62 years old with history of headache x 1 week, headache TECHNIQUE: Brain: Axial CT images of the brain were obtained with coronal and sagittal reformats created and rev iewed. Contrast used: None. Oral contrast used: None. FINDINGS: Brain: Extra-axial spaces: No abnormal extra-axial fluid collections. Ventricular system: Within normal limits Cerebral parenchyma: No acute intraparenchymal hemorrhage or mass effect. The triana-white junction is well differentiated. Cerebellum: Unremarkable. Mass effect: No evidence of midline shift. Intracranial vasculature: Atherosclerotic calcifications of the intracranial vessels. Soft tissues: Normal. Calvarium/osseous structures: No depressed skull fracture. Paranasal sinuses and mastoid air cells: Mild scattered paranasal sinus disease. Visualized orbits: Orbital contents are intact. IMPRESSION: No acute intracranial process.
--- NOTE | 2022-12-06 16:50 | ED ---
General Adult HPI - General Chief complaint: Chest Pain Stated complaint: Chest Pain,Headache Time Seen by Provider: 12/06/22 14:30 Source: patient, EMS Mode of arrival: EMS - History of Present Illness Initial comments: 62-year-old male with past medical history of COPD, diabetes, hypertension, hyperlipidemia who presents to the emergency department reporting chest pain. States that the pain awoke him from sleep. Described as a sharp shooting pain on the left side of his chest without radiation. Makes him feel short of breath and nauseated. He had one episode of vomiting in the ambulance. He did take a baby aspirin at home. EMS provided him with 3 additional aspirin and 2 nitro. States he vomited them back up and they did not help his symptoms. He has associated diaphoresis. No history of DVT or PE. No calf pain or swelling. No fevers, chills or cough. Did have a heart cath done in August of this year and had a 50% stenosis of the LAD. He also reports to one week of headache. States that headaches are common for him. Denies any visual changes. No head trauma. No other alleviating, precipitating or modifying factors - Related Data Home Medications Medication Instructions Recorded Confirmed Budesonide/Formoterol Fumarate 2 puff INHALATION RT-BID 10/04/21 12/06/22 [Symbicort 160-4.5 Mcg Inhaler] FLUoxetine HCL [PROzac] 40 mg PO DAILY 10/04/21 12/06/22 Losartan/Hydrochlorothiazide 1 tab PO DAILY 10/04/21 12/06/22 [Losartan-Hctz 100-25 mg Tab] Omeprazole 20 mg PO DAILY 10/04/21 12/06/22 Insulin Degludec [Tresiba] 30 units SQ HS 01/31/22 12/06/22 Cariprazine HCl [Vraylar] 3 mg PO HS 08/21/22 12/06/22 Magnesium Oxide [Mag-Ox] 400 mg PO DAILY 08/21/22 12/06/22 Turmeric Root Extract [Turmeric] 1,500 mg PO DAILY 08/21/22 12/06/22 Albuterol Inhaler [Ventolin Hfa 2 puff INHALATION RT-Q4H PRN 08/29/22 12/06/22 Inhaler] HYDROcodone/APAP 10-325MG [[place] 1 tab PO Q6HR PRN 12/06/22 12/06/22 10-325] Semaglutide [Ozempic] 0.5 mg SQ FR 12/06/22 12/06/22 metFORMIN HCL [Glucophage] 1,000 mg PO BID 12/06/22 12/06/22 Previous Rx's Medication Instructions Recorded Aspirin 81 mg PO DAILY #30 tab 08/24/22 Atorvastatin [Lipitor] 80 mg PO HS #30 tab 08/24/22 Nitroglycerin Sl Tabs [Nitrostat] 0.4 mg SUBLINGUAL Q5M PRN #30 tab 08/24/22 Allergies Allergy/AdvReac Type Severity Reaction Status Date / Time empagliflozin Allergy High blood Verified 12/06/22 14:54 [From Jardiance] sugar Penicillins Allergy Rash/Hives Verified 12/06/22 14:54 NSAIDS (Non-Steroidal AdvReac Unknown GI BLEED Verified 12/06/22 14:54 Anti-Inflamma Review of Systems ROS Statement: Those systems with pertinent positive or pertinent negative responses have been documented in the HPI. ROS Other: All systems not noted in ROS Statement are negative. Past Medical History Past Medical History: Asthma, Chest Pain / Angina, COPD, Diabetes Mellitus, GERD/Reflux, Hyperlipidemia, Hypertension, Osteoarthritis (OA) Additional Past Medical History / Comment(s): hx Hemorrhoids, hx colon polyps., back pain & Left hip pain (waiting for hip surgery)., states rash on legs from rubbing together, hospitalized 08/21 to 08/24/22- pt states for sob & chest pain - heart cath done and egd for anemia, hx of nsaid use with black stools. History of Any Multi-Drug Resistant Organisms: None Reported Past Surgical History: Heart Catheterization, Hernia Repair, Orthopedic Surgery, Tonsillectomy Additional Past Surgical History / Comment(s): states hx of fall with right hip surgery Feb 2022 ., Left knee arthroscopy., surgery for undescended testicles, COLONOSCOPY., EGD, EYE SURGERY CHILD, heart cath [facility] 08/2022. Past Anesthesia/Blood Transfusion Reactions: No Reported Reaction Past Psychological History: Bipolar Smoking Status: Never smoker Past Alcohol Use History: Occasional Past Drug Use History: Marijuana - Past Family History Father Family Medical History: Cancer Additional Family Medical History / Comment(s): Pancreatic cancer - at 58. Mother Family Medical History: No Reported History, Coronary Artery Disease (CAD) Additional Family Medical History / Comment(s): "Stent in heart, had blood clots." General Exam General appearance: alert, in no apparent distress Head exam: Present: atraumatic, normocephalic, normal inspection Eye exam: Present: normal appearance, PERRL, EOMI. Absent: scleral icterus, conjunctival injection, periorbital swelling ENT exam: Present: normal exam, mucous membranes moist Neck exam: Present: normal inspection. Absent: tenderness, meningismus, lymphadenopathy Respiratory exam: Present: normal lung sounds bilaterally. Absent: respiratory distress, wheezes, rales, rhonchi, stridor Cardiovascular Exam: Present: tachycardia, normal heart sounds. Absent: systolic murmur, diastolic murmur, rubs, gallop, clicks GI/Abdominal exam: Present: soft, normal bowel sounds. Absent: distended, tenderness, guarding, rebound, rigid Extremities exam: Present: normal inspection, full ROM, normal capillary refill. Absent: tenderness, pedal edema, joint swelling, calf tenderness Back exam: Present: normal inspection Neurological exam: Present: alert, oriented X3, CN II-XII intact Psychiatric exam: Present: normal affect, normal mood Skin exam: Present: warm, dry, intact, normal color. Absent: rash Course Vital Signs 12/06/22 12/06/22 14:16 17:20 Temperature 98.8 F Pulse Rate 103 H 78 Respiratory 16 15 Rate Blood Pressure 113/72 103/78 O2 Sat by Pulse 96 98 Oximetry Medical Decision Making - Medical Decision Making Was pt. sent in by a medical professional or institution (, PA, METAL FRAMER, urgent care, hospital, or [place] health care facility...) When possible be specific @ -No Did you speak to anyone other than the patient for history (EMS, parent, family, police, friend...)? What history was obtained from this source @ -EMS Did you review nursing and triage notes (agree or disagree)? Why? @ -I reviewed and agree with nursing and triage notes Were old charts reviewed (outside hosp., previous admission, EMS record, old EKG, old radiological studies, urgent care reports/EKG's, [place] health care facility records)? Report findings @ -I reviewed the patient's heart cath from August of this year which demons trates a 50% stenosis in his LAD Differential Diagnosis (chest pain, altered mental status, abdominal pain women, abdominal pain men, vaginal bleeding, weakness, fever, dyspnea, syncope, headache, dizziness, GI bleed, back pain, seizure, CVA, palpatations, mental health, musculoskeletal)? @ -Differential Chest Pain: Stable Angina, Unstable Angina, STEMI, NSTEMI Aortic Dissection, Pneumothorax, Musculoskeletal, Esophageal Spasm GERD, Cholecystitis, Pancreatitis, Zoster, this is not meant to be an all-inclusive list. EKG interpreted by me (3pts min.). @ -Yes and demonstrates sinus tachycardia with a rate of 101. DE interval 192. QRS 11. QTC of 402. No acute ST segment elevations or depressions X-rays interpreted by me (1pt min.). @ -None done CT interpreted by me (1pt min.). @ -Yes and demonstrates no central PE U/S interpreted by me (1pt. min.). @ -None done What testing was considered but not performed or refused? (CT, X-rays, U/S, labs)? Why? @ -None What meds were considered but not given or refused? Why? @ -None Did you discuss the management of the patient with other professionals (professionals i.e. , PA, METAL FRAMER, lab, RT, psych nurse, social media content specialist, apprentice painter brush, teacher, information assurance officer, director of casework)? Give summary @ -I spoke with Juanita from [facility] for admission Was smoking cessation discussed for >3mins.? @ -No Was critical care preformed (if so, how long)? @ -No Were there social determinants of health that impacted care today? How? (Homelessness, low income, unemployed, alcoholism, drug addiction, transportation, low edu. Level, literacy, decrease access to med. care, senior living, rehab)? @ -No Was there de-escalation of care discussed even if they declined (Discuss DNR or withdrawal of care, Hospice)? DNR status @ -No What co-morbidities impacted this encounter? (DM, HTN, Smoking, COPD, CAD, Cancer, CVA, ARF, Chemo, Hep., AIDS, mental health diagnosis, sleep apnea, morbid obesity)? @ -Coronary artery disease, COPD Was patient admitted / discharged? Hospital course, mention meds given and route, prescriptions, significant lab abnormalities, going to OR and other pertinent info. @ -On arrival patient was placed into room 3. A thorough history and physical exam was performed. 12-lead EKG was obtained. Patient placed on continuous pulse ox and cardiac monitoring. Laboratory studies are conducted. Laboratory studies reveal an elevated d-dimer of 1.24. Sodium is 130. Potassium 3.3. This is replaced. Troponin is undetectable. Magnesium 1.1. Magnesium is replaced. CT of the chest does not demonstrate a central PE. CT of the brain was also performed due to his report of cephalgia which is negative. He was given Reglan and Benadryl for his headache. Admits to improved symptoms. I recommended admission in order to trend his troponins for which she was agreeable. Also will consult cardiology. Spoke with Juanita from [facility] who agreed to admit the patient. He was transferred to the floor in stable condition Undiagnosed new problem with uncertain prognosis? @ -Yes Drug Therapy requiring intensive monitoring for toxicity (Heparin, Nitro, I nsulin, Cardizem)? @ -No Were any procedures done? @ -No Diagnosis/symptom? @ -acute chest pain, acute hypokalemia, acute hypomagnesemia Acute, or Chronic, or Acute on Chronic? @ -acute Uncomplicated (without systemic symptoms) or Complicated (systemic symptoms)? @ -Complicated Side effects of treatment? @ -No Exacerbation, Progression, or Severe Exacerbation? @ -No Poses a threat to life or bodily function? How? (Chest pain, [place], [place], pneumonia, PE, COPD, DKA, ARF, appy, cholecystitis, CVA, Diverticulitis, Homicidal, Suicidal, threat to staff... and all critical care pts) @ -Yes patient presents with chest pain which may indicate acute coronary event - Lab Data Result diagrams: 12/06/22 14:45 12/06/22 14:45 Lab Results 12/06/22 12/06/22 12/06/22 Range/Units 14:26 14:45 14:45 WBC 4.8 (3.8-10.6) k/uL RBC 4.32 (4.30-5.90) m/uL Hgb 11.6 L (13.0-17.5) gm/dL Hct 35.9 L (39.0-53.0) % MCV 83.2 (80.0-100.0) fL MCH 26.9 (25.0-35.0) pg MCHC 32.4 (31.0-37.0) g/dL RDW 15.8 H (11.5-15.5) % Plt Count 250 (150-450) k/uL MPV 8.1 Neutrophils % 69 % Lymphocytes % 17 % Monocytes % 10 % Eosinophils % 1 % Basophils % 0 % Neutrophils # 3.3 (1.3-7.7) k/uL Lymphocytes # 0.8 L (1.0-4.8) k/uL Monocytes # 0.5 (0-1.0) k/uL Eosinophils # 0.0 (0-0.7) k/uL Basophils # 0.0 (0-0.2) k/uL PT 10.9 (9.0-12.0) sec INR 1.0 (<1.2) APTT 23.3 (22.0-30.0) sec D-Dimer 1.24 H (<0.60) mg/L FEU Sodium (137-145) mmol/L Potassium (3.5-5.1) mmol/L Chloride (98-107) mmol/L Carbon Dioxide (22-30) mmol/L Anion Gap mmol/L BUN (9-20) mg/dL Creatinine (0.66-1.25) mg/dL Est GFR (CKD-EPI)AfAm (>60 ml/min/1.73 sqM) Est GFR (CKD-EPI)NonAf (>60 ml/min/1.73 sqM) Glucose (74-99) mg/dL POC Glucose (mg/dL) 261 H (70-110) mg/dL POC Glu Reeling Operator ID [place], Marry Calcium (8.4-10.2) mg/dL Magnesium (1.6-2.3) mg/dL Total Bilirubin (0.2-1.3) mg/dL AST (17-59) U/L ALT (4-49) U/L Alkaline Phosphatase (38-126) U/L Troponin I (0.000-0.034) ng/mL NT-Pro-B Natriuret Pep pg/mL Total Protein (6.3-8.2) g/dL Albumin (3.5-5.0) g/dL Lipase (23-300) U/L 12/06/22 12/06/22 Range/Units 14:45 14:45 WBC (3.8-10.6) k/uL RBC (4.30-5.90) m/uL Hgb (13.0-17.5) gm/dL Hct (39.0-53.0) % MCV (80.0-100.0) fL MCH (25.0-35.0) pg MCHC (31.0-37.0) g/dL RDW (11.5-15.5) % Plt Count (150-450) k/uL MPV Neutrophils % % Lymphocytes % % Monocytes % % Eosinophils % % Basophils % % Neutrophils # (1.3-7.7) k/uL Lymphocytes # (1.0-4.8) k/uL Monocytes # (0-1.0) k/uL Eosinophils # (0-0.7) k/uL Basophils # (0-0.2) k/uL PT (9.0-12.0) sec INR (<1.2) APTT (22.0-30.0) sec D-Dimer (<0.60) mg/L FEU Sodium 130 L (137-145) mmol/L Potassium 3.3 L (3.5-5.1) mmol/L Chloride 97 L (98-107) mmol/L Carbon Dioxide 19 L (22-30) mmol/L Anion Gap 14 mmol/L BUN 23 H (9-20) mg/dL Creatinine 1.43 H (0.66-1.25) mg/dL Est GFR (CKD-EPI)AfAm 60 (>60 ml/min/1.73 sqM) Est GFR (CKD-EPI)NonAf 52 (>60 ml/min/1.73 sqM) Glucose 251 H (74-99) mg/dL POC Glucose (mg/dL) (70-110) mg/dL POC Glu Reeling Operator ID Calcium 8.1 L (8.4-10.2) mg/dL Magnesium 1.1 L (1.6-2.3) mg/dL Total Bilirubin 0.4 (0.2-1.3) mg/dL AST 34 (17-59) U/L ALT 25 (4-49) U/L Alkaline Phosphatase 78 (38-126) U/L Troponin I <0.012 (0.000-0.034) ng/mL NT-Pro-B Natriuret Pep 96 pg/mL Total Protein 6.5 (6.3-8.2) g/dL Albumin 3.6 (3.5-5.0) g/dL Lipase 44 (23-300) U/L Disposition Clinical Impression: Chest pain, Hypomagnesemia, Cephalalgia Disposition: ADMITTED IP TO THIS [facility] Condition: Stable Is patient prescribed a controlled substance at d/c from ED?: No Time of Disposition: 16:59 Decision to Admit Reason: Admit from EC Decision Date: 12/06/22 Decision Time: 16:59
[2022-12-06] MEDS ORDERED: NALOXONE 0.4 MG/ML 1 ML VIAL IV PRN (16:59)
[2022-12-06] MEDS ORDERED: POTASSIUM CHLORIDE ER 20 MEQ TAB.ER PO STA (18:55)
[2022-12-06] MEDS: MAGNESIUM SULFATE-D5W PMX 1 GM in DEXTROSE/WATER 1 100ML.BAG IVPB SCH ×3 (19:03→22:04)
[2022-12-06] MEDS ORDERED: ALBUTEROL NEBULIZED 2.5 MG/3 ML INHALATION PRN (20:40)
[2022-12-06] MEDS ORDERED: NITROGLYCERIN SL TABS 0.4 MG TAB SUBLINGUAL PRN (20:40)
[2022-12-06] MEDS ORDERED: DEXTROSE 50% SYRINGE 50 ML IVP PRN ×2 (20:41)
[2022-12-06] MEDS ORDERED: ATORVASTATIN 80 MG TAB PO SCH (21:00)
[2022-12-06] MEDS ORDERED: INSULIN DETEMIR (LEVEMIR) 100 UNIT/ML SYR SQ SCH (21:00)
[2022-12-06] MEDS ORDERED: PATIENT'S OWN (Cariprazine Hcl [Vraylar] 3 MG Capsule) PO SCH (21:00)
[2022-12-06 21:28] LABS: Glucose,Whole Blood 186 mg/dL (70-110)
[2022-12-06] MEDS: INSULIN ASPART (NovoLOG) 100 UNIT/ML VIAL SQ SCH (22:02)
[2022-12-06] MEDS: HYDROcodone/APAP 10-325MG 1 EACH TAB PO PRN (22:08)
[2022-12-07 05:59] LABS: Glucose,Whole Blood 136 mg/dL (70-110)
[2022-12-07] MEDS: INSULIN ASPART (NovoLOG) 100 UNIT/ML VIAL SQ SCH ×3 (06:13→17:43)
[2022-12-07] MEDS ORDERED: SYMBICORT 160-4.5 MCG INHALER INHALATION SCH (08:00)
[2022-12-07] MEDS: HYDROcodone/APAP 10-325MG 1 EACH TAB PO PRN ×2 (08:34→14:34)
[2022-12-07 08:38] LABS: Basophils # (A) 0.02 X 10*3/uL (0.00-0.10); Basophils % (A) 0.4 %; Eosinophils # (A) 0 X 10*3/uL (0.04-0.35); Eosinophils % (A) 0 %; HCT 34.7 % (39.6-50.0); HGB 11.1 d/dL (13.0-17.0); Immature Grans, Automated 0 %; Lymphocytes # (A) 1.43 X 10*3/uL (0.90-5.00); Lymphocytes % (A) 31.4 %; MCH 26.6 pg (27.0-32.0); Mean Platelet Volume 10.3 FL (9.5-12.2); Monocytes # (A) 0.57 X 10*3/uL (0.20-1.00); Monocytes % (A) 12.5 %; NRBC Per 100 WBC 0 X 10*3/uL (0.00-0.01); Neutrophils # (A) 2.54 X 10*3/uL (1.80-7.70); Neutrophils % (A) 55.7 %; Platelet Count 272 X 10*3/uL (140-440); RBC 4.18 X 10*6/uL (4.40-5.60); RDW 15.9 % (11.5-14.5); WBC 4.56 X 10*3/uL (4.50-10.00)
[2022-12-07] MEDS ORDERED: PATIENT'S OWN (Semaglutide [Ozempic] 0.25 MG/0.2 ML Each) SQ SCH (09:00)
[2022-12-07] MEDS ORDERED: MAGNESIUM OXIDE 400 MG TAB PO SCH (09:00)
[2022-12-07] MEDS ORDERED: PANTOPRAZOLE 40 MG TABLET PO SCH (09:00)
[2022-12-07] MEDS ORDERED: FLUoxetine HCL 20 MG CAP PO SCH (09:00)
[2022-12-07] MEDS ORDERED: ASPIRIN 81 MG PO SCH (09:00)
--- NOTE | 2022-12-07 10:40 | P.CRDCN ---
History of Present Illness Consult date: 12/07/22 Consult reason: chest pain History of present illness: HISTORY OF PRESENT ILLNESS: This is a 62-year-old male with a past medical history significant for hypertension, hyperlipidemia, diabetes, and morbid obesity, chronic kidney disease. Patient does not follow with a computer customer support specialist. We have been asked to see the patient in consultation for chest pain. Patient gives history of chest pain and a pounding type sensation and also his head pounding with a headache. It woke him from sleep. He denies having shortness of breath. He does have a little cough. No fever or chills. He states he vomited all last week. He states he has shortness of breath with walking short distances like going to his car. He denies smoking. He does have history of COPD as he smokes marijuana. He is not normally active. He complains of feeling weak all over. Magnesium was replaced in the emergency center as well as potassium. Patient had a hospitalization in August of this year for chest pain and underwent cardiac catheterization which revealed calcified LAD, mild to moderate disease in the first septal interior horticulturist, right dominance, no significant obstructive disease of the left circumflex and RCA. Patient however did not have follow-up with Dr. Cox. EKG reveals sinus mechanism with no signs of acute ischemia Chest xray negative for acute process WBC 4.5, hemoglobin 11.1, platelet count 2/72. D-dimer 1.24. Sodium 130, potassium 3.3, chloride 97, CO2 19, BUN 23 creatinine 1.43. Troponin negative 3. Liver function tests normal. Magnesium 1.1. Lipase 44. Current home cardiac medications include aspirin 81 mg daily, atorvastatin 80 mg at bedtime, losartanhydrochlorothiazide 42436 milligrams 1 daily, magnesium oxide 400 mild grams daily, Nitrostat as needed,Ozempic Most recent echocardiogram obtained in August 2022 revealed preserved systolic function with EF of 55-60%, [id number] mitral regurgitation REVIEW OF SYSTEMS: At the time of my exam: CONSTITUTIONAL: Denies fever or chills. HEENT: Denies blurred vision, vision changes, or eye pain. Denies hemoptysis CARDIOVASCULAR: Denies chest pain. Denies orthopnea. Denies PND. Denies palpitations RESPIRATORY: Denies shortness of breath. GASTROINTESTINAL: Denies abdominal pain. Denies nausea or vomiting. HEMATOLOGIC: Denies bleeding disorders. GENITOURINARY: Denies any blood in urine. SKIN: Denies pruitis. Denies rash. PHYSICAL EXAM: VITAL SIGNS: Reviewed. GENERAL: Well-developed in no acute distress. HEENT: Head is normocephalic. Pupils are equal, round. Sclerae anicteric. Mucous membranes of the mouth are moist. Neck supple. No JVD or thyromegaly LUNGS: Respirations even and unlabored. Lungs essentially clear to auscultation bilaterally. HEART: Regular rate and rhythm. S1 and S2 heard. ABDOMEN: Soft. Nondistended. Nontender. EXTREMITIES: Normal range of motion. No clubbing or cyanosis. Peripheral pulses intact. No lower extremity edema NEUROLOGIC: Awake and alert. Oriented x 3. ASSESSMENT: Chest pain, troponins negative 3, acute coronary syndrome ruled out Exertional shortness of breath has been chronic Hypertension Hyperlipidemia Diabetes Morbid obesity Chronic kidney disease PLAN: Continue patient's home cardiac medications Follow-up with Dr. Cox in 1 week No further cardiac workup at this time. Patient is cleared for discharge home. Nurse practitioner note has been reviewed by physician. Signing provider agrees with the documented findings, assessment, and plan of care. Past Medical History Past Medical History: Asthma, Chest Pain / Angina, COPD, Diabetes Mellitus, MAO D/Reflux, Hyperlipidemia, Hypertension, Osteoarthritis (OA) Additional Past Medical History / Comment(s): hx Hemorrhoids, hx colon polyps., back pain & Left hip pain (waiting for hip surgery)., states rash on legs from rubbing together, hospitalized 08/21 to 08/24/22- pt states for sob & chest pain - heart cath done and egd for anemia, hx of nsaid use with black stools. History of Any Multi-Drug Resistant Organisms: None Reported Past Surgical History: Heart Catheterization, Hernia Repair, Orthopedic Surgery, Tonsillectomy Additional Past Surgical History / Comment(s): states hx of fall with right hip surgery Feb 2022 ., Left knee arthroscopy., surgery for undescended testicles, COLONOSCOPY., EGD, EYE SURGERY CHILD, heart cath [facility] 08/2022. Past Anesthesia/Blood Transfusion Reactions: No Reported Reaction Past Psychological History: Bipolar Smoking Status: Never smoker Past Alcohol Use History: Occasional Past Drug Use History: Marijuana - Past Family History Father Family Medical History: Cancer Additional Family Medical History / Comment(s): Pancreatic cancer - at 58. Mother Family Medical History: No Reported History, Coronary Artery Disease (CAD) Additional Family Medical History / Comment(s): "Stent in heart, had blood clots." Medications and Allergies Home Medications Medication Instructions Recorded Confirmed Type Budesonide/Formoterol Fumarate 2 puff INHALATION RT-BID 10/04/21 12/06/22 History [Symbicort 160-4.5 Mcg Inhaler] FLUoxetine HCL [PROzac] 40 mg PO DAILY 10/04/21 12/06/22 History Losartan/Hydrochlorothiazide 1 tab PO DAILY 10/04/21 12/06/22 History [Losartan-Hctz 100-25 mg Tab] Omeprazole 20 mg PO DAILY 10/04/21 12/06/22 History Insulin Degludec [Tresiba] 30 units SQ HS 01/31/22 12/06/22 History Cariprazine HCl [Vraylar] 3 mg PO HS 08/21/22 12/06/22 History Magnesium Oxide [Mag-Ox] 400 mg PO DAILY 08/21/22 12/06/22 History Turmeric Root Extract [Turmeric] 1,500 mg PO DAILY 08/21/22 12/06/22 History Aspirin 81 mg PO DAILY #30 tab 08/24/22 12/06/22 Rx Atorvastatin [Lipitor] 80 mg PO HS #30 tab 08/24/22 12/06/22 Rx Nitroglycerin Sl Tabs [Nitrostat] 0.4 mg SUBLINGUAL Q5M PRN #30 tab 08/24/22 12/06/22 Rx Albuterol Inhaler [Ventolin Hfa 2 puff INHALATION RT-Q4H PRN 08/29/22 12/06/22 History Inhaler] HYDROcodone/APAP 10-325MG [[place] 1 tab PO Q6HR PRN 12/06/22 12/06/22 History 10-325] Semaglutide [Ozempic] 0.5 mg SQ FR 12/06/22 12/06/22 History metFORMIN HCL [Glucophage] 1,000 mg PO BID 12/06/22 12/06/22 History Allergies Allergy/AdvReac Type Severity Reaction Status Date / Time empagliflozin Allergy High blood Verified 12/06/22 14:54 [From Jardiance] sugar Penicillins Allergy Rash/Hives Verified 12/06/22 14:54 NSAIDS (Non-Steroidal AdvReac Unknown GI BLEED Verified 12/06/22 14:54 Anti-Inflamma Physical Exam Vitals: Vital Signs Temp Pulse Pulse Resp BP BP Pulse Ox 12/07/22 01:12 98.4 F 69 105/69 97 12/07/22 01:04 67 12/06/22 20:15 98.1 F 67 15 126/85 99 12/06/22 17:20 78 15 103/78 98 12/06/22 14:16 98.8 F 103 H 16 113/72 96 Intake and Output 12/06/22 12/07/22 12/07/22 22:59 06:59 14:59 Other: Voiding Method Toilet # Voids 2 Weight 117.934 kg Results 12/07/22 05:41 12/06/22 14:45 Cardiac Enzymes 12/06/22 12/06/22 12/06/22 Range/Units 14:45 14:45 17:42 AST 34 (17-59) U/L Troponin I <0.012 <0.012 (0.000-0.034) ng/mL 12/06/22 Range/Units 20:32 AST (17-59) U/L Troponin I <0.012 (0.000-0.034) ng/mL Coagulation 12/06/22 Range/Units 14:45 PT 10.9 (9.0-12.0) sec APTT 23.3 (22.0-30.0) sec CBC 12/06/22 Range/Units 14:45 WBC 4.8 (3.8-10.6) k/uL RBC 4.32 (4.30-5.90) m/uL Hgb 11.6 L (13.0-17.5) gm/dL Hct 35.9 L (39.0-53.0) % Plt Count 250 (150-450) k/uL Comprehensive Metabolic Panel 12/06/22 Range/Units 14:45 Sodium 130 L (137-145) mmol/L Potassium 3.3 L (3.5-5.1) mmol/L Chloride 97 L (98-107) mmol/L Carbon Dioxide 19 L (22-30) mmol/L BUN 23 H (9-20) mg/dL Creatinine 1.43 H (0.66-1.25) mg/dL Glucose 251 H (74-99) mg/dL Calcium 8.1 L (8.4-10.2) mg/dL AST 34 (17-59) U/L ALT 25 (4-49) U/L Alkaline Phosphatase 78 (38-126) U/L Total Protein 6.5 (6.3-8.2) g/dL Albumin 3.6 (3.5-5.0) g/dL Current Medications Generic Name Dose Route Start Last Admin Trade Name Freq PRN Reason Stop Dose Admin Hydrocodone Bitart/Acetaminophen 1 each 12/06/22 20:40 12/06/22 22:08 Hydrocodone/Apap 10-325mg 1 Each Tab PO 1 each Q6HR PRN Administration Pain Albuterol Sulfate 2.5 mg 12/06/22 20:40 Albuterol Nebulized 2.5 Mg/3 Ml INHALATION RT-Q4H PRN Shortness Of Breath Aspirin 81 mg 12/07/22 09:00 Aspirin 81 Mg PO DAILY [facility] Atorvastatin Calcium 80 mg 12/06/22 21:00 12/06/22 22:03 Atorvastatin 80 Mg Tab PO 80 mg HS [facility] Administration Budesonide/Formoterol Fumarate 2 puff 12/07/22 08:00 Symbicort 160-4.5 Mcg Inhaler INHALATION RT-BID WENDY Dextrose/Water 25 ml 12/06/22 20:41 Dextrose 50% Syringe 50 Ml IVP PER PROTOCOL PRN Hypoglycemia Protocol Dextrose/Water 50 ml 12/06/22 20:41 Dextrose 50% Syringe 50 Ml IVP PER PROTOCOL PRN Hypoglycemia Protocol Fluoxetine HCl 40 mg 12/07/22 09:00 Fluoxetine Hcl 20 Mg Cap PO DAILY [facility] Insulin Aspart 0 unit 12/06/22 21:00 12/07/22 06:13 Insulin Aspart (Novolog) 100 Unit/Ml Vial SQ Not Given ACHS [facility] Protocol Insulin Detemir 30 unit 12/06/22 21:00 12/06/22 22:03 Insulin Detemir (Levemir) 100 Unit/Ml Syr SQ 30 unit HS WEND[facility] Administration Magnesium Oxide 400 mg 12/07/22 09:00 Magnesium Oxide 400 Mg Tab PO DAILY [facility] Miscellaneous Information 1 each 12/06/22 14:47 Rx Info: Iv Contrast Was Given 1 Each Misc MISCELLANE 12/08/22 14:47 DAILY PRN Per Protocol Naloxone HCl 0.2 mg 12/06/22 16:59 Naloxone 0.4 Mg/Ml 1 Ml Vial IV Q2M PRN Opioid Reversal Nitroglycerin 0.4 mg 12/06/22 20:40 Nitroglycerin Sl Tabs 0.4 Mg Tab SUBLINGUAL Q5M PRN Chest Pain Patient's Own ( 3 mg 12/06/22 21:00 12/06/22 22:03 Cariprazine Hcl [ PO Not Given Vraylar] 3 Mg HS WEND[facility] Capsule) Patient's Own ( 0.5 mg 12/07/22 09:00 Semaglutide [Ozempic SQ ] 0.25 Mg/0.2 Ml FR WENDY Each) Pantoprazole Sodium 40 mg 12/07/22 09:00 Pantoprazole 40 Mg Tablet PO DAILY [facility] Intake and Output 12/06/22 12/07/22 12/07/22 22:59 06:59 14:59 Other: Voiding Method Toilet # Voids 2 Weight 117.934 kg 12/06/22 14:45 12/06/22 14:45
--- NOTE | 2022-12-07 11:51 | P.HPIM ---
History of Present Illness 62-year-old the male came in with complaints of pounding in the chest along with headache which started today morning after he woke up chest pain is nonradiating denied any shortness of breath denied any lightheadedness. His 20s not related to food and does not believe it's acid reflux patient chest pain is nonpruritic in nature. EKG showed sinus rhythm without any daily ST-T wave changes patient had a recent echocardiogram which showed EF of 460-65% no wall motion abnormalities. Patient does take hydrochlorothiazide and losartan and patient does have chronic kidney disease with creatinine baseline of 1.3%. The patient is bit hypotensive and also hyponatremic does take hydrochlorothiazide at home. She had a recent cardiac catheterization showed calcified LAD which didn't require any intervention. This cardiac catheterization was done in August of last year. Brain CT and CT angios the chest are within normal limits patient headache resolved REVIEW OF SYSTEMS: CONSTITUTIONAL: No fever, no malaise, no fatigue. HEENT: No recent visual problems or hearing problems. Denied any sore throat. CARDIOVASCULAR: No orthopnea, PND, no palpitations, no syncope. PULMONARY: No shortness of breath, no cough, no hemoptysis. GASTROINTESTINAL: No diarrhea, no nausea, no vomiting, no abdominal pain. NEUROLOGICAL: No headaches, no weakness, no numbness. HEMATOLOGICAL: Denies any bleeding or petechiae. GENITOURINARY: Denies any burning micturition, frequency, or urgency. MUSCULOSKELETAL/RHEUMATOLOGICAL: Denies any joint pain, swelling, or any muscle pain. ENDOCRINE: Denies any polyuria or polydipsia. The rest of the 14-point review of systems is negative. PHYSICAL EXAMINATION: GENERAL: The patient is alert and oriented x3, not in any acute distress. Well developed, well nourished. HEENT: Pupils are round and equally reacting to light. EOMI. No scleral icterus. No conjunctival pallor. Normocephalic, atraumatic. No pharyngeal erythema. No thyromegaly. CARDIOVASCULAR: S1 and S2 present. No murmurs, rubs, or gallops. PULMONARY: Chest is clear to auscultation, no wheezing or crackles. ABDOMEN: Soft, nontender, nondistended, normoactive bowel sounds. No palpable organomegaly. MUSCULOSKELETAL: No joint swelling or deformity. EXTREMITIES: No cyanosis, clubbing, or pedal edema. NEUROLOGICAL: Gross neurological examination did not reveal any focal deficits. SKIN: No rashes. Assessment and plan -Chest pain rule out acute current syndromes patient has recent cardiac catheterization patient was evaluated by cardiology cleared for discharge. Patient's chest pain appears to be noncardiac ruled out for pulmonary embolism no evidence of pneumonia although etiology of this chest pain is not clear patient is medically stable and will be discharged today -Hyponatremia secondary to hydrochlorothiazide patient is also hypotensive because of which her probenecid will be discontinued and dose of losartan will be cut down -Chronic kidney disease stage III from diabetic nephropathy -Type 2 diabetes mellitus resume home regimen -Hyperlipidemia -Obesity: Counseling regarding diet was provided -Hyperlipidemia -Hypomagnesemia magnesium will be replaced hypokalemia potassium will, both secondary to hydrochlorothiazide. Patient is on magnesium supplementation patient probably will need recheck of magnesium and electrolytes as an outpatient DVT prophylaxis: Patient will be discharged today to follow up with primary care physician as an outpatient Past Medical History Past Medical History: Asthma, Chest Pain / Angina, COPD, Diabetes Mellitus, GE RD/Reflux, Hyperlipidemia, Hypertension, Osteoarthritis (OA) Additional Past Medical History / Comment(s): hx Hemorrhoids, hx colon polyps., back pain & Left hip pain (waiting for hip surgery)., states rash on legs from rubbing together, hospitalized 08/21 to 08/24/22- pt states for sob & chest pain - heart cath done and egd for anemia, hx of nsaid use with black stools. History of Any Multi-Drug Resistant Organisms: None Reported Past Surgical History: Heart Catheterization, Hernia Repair, Orthopedic Surgery, Tonsillectomy Additional Past Surgical History / Comment(s): states hx of fall with right hip surgery Feb 2022 ., Left knee arthroscopy., surgery for undescended testicles, COLONOSCOPY., EGD, EYE SURGERY CHILD, heart cath mph 08/2022. Past Anesthesia/Blood Transfusion Reactions: No Reported Reaction Past Psychological History: Bipolar Smoking Status: Never smoker Past Alcohol Use History: Occasional Past Drug Use History: Marijuana - Past Family History Father Family Medical History: Cancer Additional Family Medical History / Comment(s): Pancreatic cancer - at 58. Mother Family Medical History: No Reported History, Coronary Artery Disease (CAD) Additional Family Medical History / Comment(s): "Stent in heart, had blood clots." Medications and Allergies Home Medications Medication Instructions Recorded Confirmed Type Budesonide/Formoterol Fumarate 2 puff INHALATION RT-BID 10/04/21 12/06/22 History [Symbicort 160-4.5 Mcg Inhaler] FLUoxetine HCL [PROzac] 40 mg PO DAILY 10/04/21 12/06/22 History Omeprazole 20 mg PO DAILY 10/04/21 12/06/22 History Insulin Degludec [Tresiba] 30 units SQ HS 01/31/22 12/06/22 History Cariprazine HCl [Vraylar] 3 mg PO HS 08/21/22 12/06/22 History Magnesium Oxide [Mag-Ox] 400 mg PO DAILY 08/21/22 12/06/22 History Turmeric Root Extract [Turmeric] 1,500 mg PO DAILY 08/21/22 12/06/22 History Aspirin 81 mg PO DAILY #30 tab 08/24/22 12/06/22 Rx Atorvastatin [Lipitor] 80 mg PO HS #30 tab 08/24/22 12/06/22 Rx Nitroglycerin Sl Tabs [Nitrostat] 0.4 mg SUBLINGUAL Q5M PRN #30 tab 08/24/22 12/06/22 Rx Albuterol Inhaler [Ventolin Hfa 2 puff INHALATION RT-Q4H PRN 08/29/22 12/06/22 History Inhaler] HYDROcodone/APAP 10-325MG [[place] 1 tab PO Q6HR PRN 12/06/22 12/06/22 History 10-325] Semaglutide [Ozempic] 0.5 mg SQ FR 12/06/22 12/06/22 History metFORMIN HCL [Glucophage] 1,000 mg PO BID 12/06/22 12/06/22 History Allergies Allergy/AdvReac Type Severity Reaction Status Date / Time empagliflozin Allergy High blood Verified 12/06/22 14:54 [From Jardiance] sugar Penicillins Allergy Rash/Hives Verified 12/06/22 14:54 NSAIDS (Non-Steroidal AdvReac Unknown GI BLEED Verified 12/06/22 14:54 Anti-Inflamma Physical Exam Vitals: Vital Signs Temp Pulse Pulse Resp BP BP Pulse Ox 12/07/22 08:00 15 12/07/22 07:00 98.5 F 70 18 112/71 97 07/28/23 01:12 98.4 F 69 105/69 97 12/07/22 01:04 67 12/06/22 20:15 98.1 F 67 15 126/85 99 12/06/22 17:20 78 15 103/78 98 12/06/22 14:16 98.8 F 103 H 16 113/72 96 Intake and Output 12/06/22 12/07/22 12/07/22 22:59 06:59 14:59 Intake Total 358 Balance 358 Intake: Oral 358 Other: Voiding Method Toilet # Voids 2 Weight 117.934 kg Results CBC & Chem 7: 12/07/22 05:41 12/06/22 14:45 Labs: Abnormal Lab Results - Last 24 Hours (Table) 12/06/22 12/06/22 12/06/22 Range/Units 14:26 14:45 14:45 RBC (4.40-5.60) X 10*6/uL Hgb 11.6 L (13.0-17.5) gm/dL Hct 35.9 L (39.0-53.0) % MCH (27.0-32.0) pg RDW 15.8 H (11.5-15.5) % Lymphocytes # 0.8 L (1.0-4.8) k/uL Eosinophils # (0.04-0.35) X 10*3/uL D-Dimer 1.24 H (<0.60) mg/L FEU Sodium (137-145) mmol/L Potassium (3.5-5.1) mmol/L Chloride (98-107) mmol/L Carbon Dioxide (22-30) mmol/L BUN (9-20) mg/dL Creatinine (0.66-1.25) mg/dL Glucose (74-99) mg/dL POC Glucose (mg/dL) 261 H (70-110) mg/dL Hemoglobin A1c (<=6.0) % Calcium (8.4-10.2) mg/dL Magnesium (1.6-2.3) mg/dL 12/06/22 12/06/22 12/07/22 Range/Units 14:45 21:26 05:41 RBC (4.40-5.60) X 10*6/uL Hgb (13.0-17.5) gm/dL Hct (39.0-53.0) % MCH (27.0-32.0) pg RDW (11.5-15.5) % Lymphocytes # (1.0-4.8) k/uL Eosinophils # (0.04-0.35) X 10*3/uL D-Dimer (<0.60) mg/L FEU Sodium 130 L (137-145) mmol/L Potassium 3.3 L (3.5-5.1) mmol/L Chloride 97 L (98-107) mmol/L Carbon Dioxide 19 L (22-30) mmol/L BUN 23 H (9-20) mg/dL Creatinine 1.43 H (0.66-1.25) mg/dL Glucose 251 H (74-99) mg/dL POC Glucose (mg/dL) 186 H (70-110) mg/dL Hemoglobin A1c 7.4 H (<=6.0) % Calcium 8.1 L (8.4-10.2) mg/dL Magnesium 1.1 L (1.6-2.3) mg/dL 12/07/22 12/07/22 Range/Units 05:41 05:57 RBC 4.18 L (4.40-5.60) X 10*6/uL Hgb 11.1 L (13.0-17.5) gm/dL Hct 34.7 L (39.0-53.0) % MCH 26.6 L (27.0-32.0) pg RDW 15.9 H (11.5-15.5) % Lymphocytes # (1.0-4.8) k/uL Eosinophils # 0 L (0.04-0.35) X 10*3/uL D-Dimer (<0.60) mg/L FEU Sodium (137-145) mmol/L Potassium (3.5-5.1) mmol/L Chloride (98-107) mmol/L Carbon Dioxide (22-30) mmol/L BUN (9-20) mg/dL Creatinine (0.66-1.25) mg/dL Glucose (74-99) mg/dL POC Glucose (mg/dL) 136 H (70-110) mg/dL Hemoglobin A1c (<=6.0) % Calcium (8.4-10.2) mg/dL Magnesium (1.6-2.3) mg/dL Thrombosis Risk Factor Assmnt - Choose All That Apply Each Factor Represents 1 point: Abnormal pulmonary function (COPD), Obesity (BMI >25) Each Risk Factor Represents 2 Points: Age 61-74 years Thrombosis Risk Factor Assessment Total Risk Factor Score: 4 Thrombosis Risk Factor Assessment Level: Moderate Risk
[2022-12-07 12:03] LABS: Magnesium 2.1 mg/dL (1.5-2.4)
[2022-12-07 12:14] LABS: Glucose,Whole Blood 179 mg/dL (70-110)
[2022-12-07] MEDS ORDERED: POTASSIUM CHLORIDE ER 20 MEQ TAB.ER PO STA (12:17)
[2022-12-07 12:22] LABS: ALT 23 U/L (10-49); AST 39 U/L (14-35); Albumin 3.7 d/dL (3.8-4.9); Albumin/Globulin Ratio 1.68 Ratio (1.60-3.17); Alkaline Phosphatase 72 U/L (41-126); BUN/Creat Ratio 12.65 Ratio (12.00-20.00); Blood Urea Nitrogen 21.5 mg/dL (9.0-27.0); Calcium 8.7 mg/dL (8.7-10.3); Carbon Dioxide 21.3 mmol/L (21.6-31.8); Chloride 97 mmol/L (96-109); Globulin 2.2 d/dL (1.6-3.3); Glucose 131 mg/dL (70-110); Potassium 3.6 mmol/L (3.5-5.5); Sodium 134 mmol/L (135-145); Total Bilirubin <0.2 mg/dL (0.3-1.2); Total Protein 5.9 d/dL (6.2-8.2)
[2022-12-07] MEDS ORDERED: MAGNESIUM SULFATE-D5W PMX 1 GM in DEXTROSE/WATER 1 100ML.BAG IVPB SCH (13:00)
[2022-12-07] MEDS: MAGNESIUM SULFATE-D5W PMX 1 GM in DEXTROSE/WATER 1 100ML.BAG IVPB SCH ×2 (14:15→15:48)
[2022-12-07 15:04] VITALS: BP 110/70; PULSE 69; RESP 20; TEMP 98.8
[2022-12-07 17:22] LABS: Glucose,Whole Blood 212 mg/dL (70-110)
== END 2022-12-07 18:02 | disposition home or self-care (01) ==
LOC: EC 14:09 → 6NMEDSUR 17:00
PROVIDERS: ADMIT Hospitalist; ATTEND Hospitalist
DX: R07.89 Other chest pain (principal); E83.42 Hypomagnesemia; E87.6 Hypokalemia; I95.9 Hypotension, unspecified; E87.1 Hypo-osmolality and hyponatremia; T50.2X5A Adverse effect of carbonic-anhydrase inhibitors, benzothiadiazides and other diuretics, initial encounter; I12.9 Hypertensive chronic kidney disease with stage 1 through stage 4 chronic kidney disease, or unspecified chronic kidney disease; N18.30 Chronic kidney disease, stage 3 unspecified; E11.22 Type 2 diabetes mellitus with diabetic chronic kidney disease; I25.84 Coronary atherosclerosis due to calcified coronary lesion; E78.5 Hyperlipidemia, unspecified; J44.9 Chronic obstructive pulmonary disease, unspecified; R61 Generalized hyperhidrosis; R51.9 Headache, unspecified; R79.89 Other specified abnormal findings of blood chemistry; K21.9 Gastro-esophageal reflux disease without esophagitis; D64.9 Anemia, unspecified; I25.10 Atherosclerotic heart disease of native coronary artery without angina pectoris; R00.0 Tachycardia, unspecified; F31.9 Bipolar disorder, unspecified; I34.0 Nonrheumatic mitral (valve) insufficiency; M19.90 Unspecified osteoarthritis, unspecified site; E66.01 Morbid (severe) obesity due to excess calories; Z68.39 Body mass index [BMI] 39.0-39.9, adult; Z71.3 Dietary counseling and surveillance; Z79.51 Long term (current) use of inhaled steroids; Z79.4 Long term (current) use of insulin; Z79.84 Long term (current) use of oral hypoglycemic drugs; Z79.85 Long-term (current) use of injectable non-insulin antidiabetic drugs; Z79.82 Long term (current) use of aspirin; Z79.899 Other long term (current) drug therapy; Z88.0 Allergy status to penicillin; Z88.6 Allergy status to analgesic agent; Z88.8 Allergy status to other drugs, medicaments and biological substances; Z86.010 Personal history of colon polyps; Z87.19 Personal history of other diseases of the digestive system; Z87.828 Personal history of other (healed) physical injury and trauma; Z98.890 Other specified postprocedural states; Z80.0 Family history of malignant neoplasm of digestive organs; Z82.49 Family history of ischemic heart disease and other diseases of the circulatory system
CPT/HCPCS: 96366 ×2; 96365; 96375; 99285; 36415; 93005; 85379; 83880; 80053 ×2; 83690; 83735 ×2; 84484; 85025 ×2; 85610; 85730; 83036; 70450; 71275; G0378 ×2; J1200; J2765; J3475 ×2; Q9967

== ENCOUNTER 2024-01-22 16:11 | Inpatient (IN) | payer MEDICARE, OTHER ==
--- NOTE | 2024-01-22 16:59 | XR ---
EXAMINATION TYPE: XR chest 2V DATE OF EXAM: 01/22/2024 COMPARISON: 08/21/2022 INDICATION: Chest pain TECHNIQUE: Frontal and lateral views of the chest are obtained. FINDINGS: The heart size is normal. The pulmonary vasculature is normal. There may be a minimal posterior pleural effusion on the lateral projection likely on the left. No stauffer spicious infiltrates evident.. IMPRESSION: 1. Small posterior left pleural effusion.
[2024-01-22 17:06] LABS: Basophils # (A) 0.1 k/uL (0-0.2); Basophils % (A) 0 %; Eosinophils # (A) 0.1 k/uL (0-0.7); Eosinophils % (A) 1 %; HCT 39.1 % (39.0-53.0); HGB 12.8 gm/dL (13.0-17.5); Lymphocytes # (A) 1.9 k/uL (1.0-4.8); Lymphocytes % (A) 19 %; MCH 28.3 pg (25.0-35.0); MCHC 32.8 g/dL (31.0-37.0); MCV 86.3 fL (80.0-100.0); Mean Platelet Volume 8.4; Monocytes # (A) 0.5 k/uL (0-1.0); Monocytes % (A) 5 %; Neutrophils # (A) 7.4 k/uL (1.3-7.7); Neutrophils % (A) 73 %; Platelet Count 255 k/uL (150-450); RBC 4.53 m/uL (4.30-5.90); RDW 14.8 % (11.5-15.5); WBC 10.1 k/uL (3.8-10.6)
[2024-01-22 17:08] LABS: ALT 17 U/L (4-49); African American GFR (CKD) 62 (>60 ml/min/1.73 sqM); Anion Gap 11 mmol/L; Blood Urea Nitrogen 21 mg/dL (9-20); Carbon Dioxide 24 mmol/L (22-30); Chloride 96 mmol/L (98-107); Glucose 318 mg/dL (74-99); Non-African American GFR(CKD) 53 (>60 ml/min/1.73 sqM); Sodium 131 mmol/L (137-145); Total Bilirubin 0.9 mg/dL (0.2-1.3)
[2024-01-22 17:21] LABS: AST 33 U/L (17-59); Albumin 4.1 g/dL (3.5-5.0); Alkaline Phosphatase 63 U/L (38-126); Magnesium 1.5 mg/dL (1.6-2.3); Potassium 4.8 mmol/L (3.5-5.1)
[2024-01-22] MEDS: ASPIRIN 81 MG PO STA (17:21)
[2024-01-22] MEDS: HYDROcodone/APAP 10-325MG 1 EACH TAB PO ONE (17:23)
[2024-01-22 17:25] LABS: INR 0.9 (<1.2); Prothrombin Time 10.2 sec (10.0-12.5)
[2024-01-22 17:29] LABS: Partial Thromboplastin Time 21.9 sec (22.0-30.0)
[2024-01-22] MEDS ORDERED: ONDANSETRON 4 MG/2 ML VIAL IVP PRN (17:59)
[2024-01-22] MEDS ORDERED: NALOXONE 0.4 MG/ML 1 ML VIAL IV PRN (17:59)
--- NOTE | 2024-01-22 18:03 | ED ---
General Adult HPI - General Chief complaint: Chest Pain Stated complaint: chest pain, SOB Time Seen by Provider: 01/22/24 17:05 Source: patient, RN notes reviewed, old records reviewed Mode of arrival: ambulatory Limitations: no limitations - History of Present Illness Initial comments: Patient is a 63-year-old male past medical history remarkable for emphysema, angina, diabetes, hypertension who presents emergency department with on again o ff again chest pain throughout the day today. States that he has experienced this in the past. Is also complaining of chronic exertional dyspnea that has been ongoing for months to years. Primary complaint today is the chest discomfort. States it is located substernally and feels like pressure. Does not radiate. No diaphoresis. No lightheadedness. No cough or congestion. No fevers. No known sick contacts. No other acute complaints at this time. Has a history significant for hypertension, hyperlipidemia, diabetes, morbid obesity, CKD. Currently has no pain. Presents for further evaluation at this time.Workup Started in the waiting room in triage. - Related Data Home Medications Medication Instructions Recorded Confirmed FLUoxetine HCL [PROzac] 40 mg PO DAILY 10/04/21 01/22/24 Omeprazole 20 mg PO DAILY 10/04/21 01/22/24 Insulin Degludec [Tresiba] 48 units SQ HS 01/31/22 01/22/24 Cariprazine HCl [Vraylar] 3 mg PO HS 08/21/22 01/22/24 Turmeric Root Extract [Turmeric] 1,000 mg PO DAILY 08/21/22 01/22/24 HYDROcodone/APAP 10-325MG [[place] 1 tab PO QID 12/06/22 01/22/24 10-325] metFORMIN HCL [Glucophage] 1,000 mg PO DAILY 12/06/22 01/22/24 Ferrous Sulfate [Feosol] 325 mg PO BID 01/22/24 01/22/24 Linagliptin [Tradjenta] 5 mg PO DAILY 01/22/24 01/22/24 Losartan/Hydrochlorothiazide 1 tab PO DAILY 01/22/24 01/22/24 [Hyzaar 100-25 Tablet] Magnesium 325mg 975 mg PO DAILY 01/22/24 01/22/24 Vitamin B-12(Unknown Dose) 1 tab PO DAILY 01/22/24 01/22/24 Vitamin D3(Unknown Dose) 1 tab PO DAILY 01/22/24 01/22/24 Previous Rx's Medication Instructions Recorded Atorvastatin [Lipitor] 80 mg PO HS #30 tab 08/24/22 Allergies Allergy/AdvReac Type Severity Reaction Status Date / Time empagliflozin Allergy High blood Verified 01/22/24 18:17 [From Jardiance] sugar Penicillins Allergy Rash/Hives Verified 01/22/24 18:17 NSAIDS (Non-Steroidal AdvReac Unknown GI BLEED Verified 01/22/24 18:17 Anti-Inflamma Review of Systems ROS Statement: Those systems with pertinent positive or pertinent negative responses have been documented in the HPI. Review of Systems: CONST: Denies fever EYES: Denies blurry vision ENT: Denies nasal congestion C/V: Denies Chest pain RESP: Denies shortness of breath GI: Denies abdominal pain : Denies dysuria SKIN: Denies rash. MSK: Denies joint pain. NEURO: Denies headache ROS Other: All systems not noted in ROS Statement are negative. Past Medical History Past Medical History: Asthma, Chest Pain / Angina, COPD, Diabetes Mellitus, GERD/Reflux, Hyperlipidemia, Hypertension, Osteoarthritis (OA) Additional Past Medical History / Comment(s): hx Hemorrhoids, hx colon polyps., back pain & Left hip pain (waiting for hip surgery)., states rash on legs from rubbing together, hospitalized 08/21 to 08/24/22- pt states for sob & chest pain - heart cath done and egd for anemia, hx of nsaid use with black stools. History of Any Multi-Drug Resistant Organisms: None Reported Past Surgical History: Heart Catheterization, Hernia Repair, Orthopedic Surgery, Tonsillectomy Additional Past Surgical History / Comment(s): states hx of fall with right hip surgery Feb 2022 ., Left knee arthroscopy., surgery for undescended testicles, COLONOSCOPY., EGD, EYE SURGERY CHILD, heart cath mph 08/2022. Past Anesthesia/Blood Transfusion Reactions: No Reported Reaction Past Psychological History: Bipolar Smoking Status: Never smoker Past Alcohol Use History: Occasional Past Drug Use History: Marijuana - Past Family History Father Family Medical History: Cancer Additional Family Medical History / Comment(s): Pancreatic cancer - at 58. Mother Family Medical History: No Reported History, Coronary Artery Disease (CAD) Additional Family Medical History / Comment(s): "Stent in heart, had blood clots." General Exam - General Exam Comments Initial Comments: General: Appears in no acute distress. HEAD: Normal with no signs of head trauma. EYES: PERRLA, EOMI, conjunctiva normal, no discharge. ENT: Hearing grossly intact, normal oropharynx. RESPIRATORY: Clear breath sounds bilaterally. No wheezes, rales, or rhonchi. C/V: Regular rate and rhythm. S1 and S2 auscultated, no edema, peripheral pulses 2+ and intact throughout ABD: Abd is soft, nontender, nondistended EXT: Normal range of motion, no obvious deformity SKIN: No rashes or lesions observed on exposed skin. NEURO: Alert and oriented x 4. Limitations: no limitations Course Vital Signs 01/22/24 01/22/24 01/22/24 16:12 17:16 17:18 Temperature 97.4 F L Pulse Rate 98 87 Pulse Rate [ 80 Buyer Assistant ] Respiratory 20 18 Rate Blood Pressure 155/80 129/89 O2 Sat by Pulse 98 97 Oximetry Medical Decision Making - Medical Decision Making Was pt. sent in by a medical professional or institution (, PA, BUSINESS MANAGEMENT ASSOCIATE, urgent care, hospital, or half-way...) When possible be specific @ -No Did you speak to anyone other than the patient for history (EMS, parent, family, police, friend...)? What history was obtained from this source @ -No Did you review nursing and triage notes (agree or disagree)? Why? @ -I reviewed and agree with nursing and triage notes Were old charts reviewed (outside hosp., previous admission, EMS record, old EKG, old radiological studies, urgent care reports/EKG's, half-way records)? Report findings @ -Reviewed EKG from December 2022 with no obvious acute changes when compared to today's. Differential Diagnosis (chest pain, altered mental status, abdominal pain women, abdominal pain men, vaginal bleeding, weakness, fever, dyspnea, syncope, headache, dizziness, GI bleed, back pain, seizure, CVA, palpatations, mental health, musculoskeletal)? @ -Differential Chest Pain: Stable Angina, Unstable Angina, STEMI, NSTEMI Aortic Dissection, Pneumothorax, Musculoskeletal, Esophageal Spasm GERD, Cholecystitis, Pancreatitis, Zoster, this is not meant to be an all-inclusive list. EKG interpreted by me (3pts min.). @ -As above X-rays interpreted by me (1pt min.). @ -Chest x-ray reveals no obvious acute cardiopulmonary process. Possible small pleural effusion on the left. CT interpreted by me (1pt min.). @ -None done U/S interpreted by me (1pt. min.). @ -None done What testing was considered but not performed or refused? (CT, X-rays, U/S, labs)? Why? @ -None What meds were considered but not given or refused? Why? @ -None Did you discuss the management of the patient with other professionals (professionals i.e. , PA, BUSINESS MANAGEMENT ASSOCIATE, lab, RT, psych nurse, social services analyst, studio hand, teacher, combat systems officer, outsole caser)? Give summary @ -I spoke with the admitting physician, Dr. Oliver who accepted the admission. Was smoking cessation discussed for >3mins.? @ -No Was critical care preformed (if so, how long)? @ -No Were there social determinants of health that impacted care today? How? (Homelessness, low income, unemployed, alcoholism, drug addiction, transportation, low edu. Level, literacy, decrease access to med. care, fpc, rehab)? @ -No Was there de-escalation of care discussed even if they declined (Discuss DNR or withdrawal of care, Hospice)? DNR status @ -No What co-morbidities impacted this encounter? (DM, HTN, Smoking, COPD, CAD, Cancer, CVA, ARF, Chemo, Hep., AIDS, mental health diagnosis, sleep apnea, morbid obesity)? @ -Emphysema Was patient admitted / discharged? Hospital course, mention meds given and r oute, prescriptions, significant lab abnormalities, going to OR and other pertinent info. @ -Based on patient's presentation physical exam, presents with multiple episodes of chest pain today. Currently has no chest pain. We will obtain cardiac workup. Patient given aspirin. Also given a [place] for his chronic back pain. Vital signs within acceptable limits. Patient in agreement this plan. EKG shows no signs of acute ischemia. Chest x-ray unremarkable. Laboratory studies are also unremarkable including troponin that is undetectable. Elevated BUN and creatinine in the setting of CKD. Magnesium is low at 1.5 and it was replenished. I update the patient. Remains pain-free however due to patient's heart score being at least 4, I did want to admit the patient to cardiac observation. Patient was in agreement this plan. I spoke with Dr. Oliver who accepted the admission. Cardiology consulted. We will trend the troponin. Undiagnosed new problem with uncertain prognosis? @ -No Drug Therapy requiring intensive monitoring for toxicity (Heparin, Nitro, Insulin, Cardizem)? @ -No Were any procedures done? @ -No Diagnosis/symptom? @ -Chest pain Acute, or Chronic, or Acute on Chronic? @ -Acute Uncomplicated (without systemic symptoms) or Complicated (systemic symptoms)? @ -Complicated Side effects of treatment? @ -No Exacerbation, Progression, or Severe Exacerbation? @ -No Poses a threat to life or bodily function? How? (Chest pain, USA, MD, pneumonia, PE, COPD, DKA, ARF, appy, cholecystitis, CVA, Diverticulitis, Homicidal, Suicidal, threat to staff... and all critical care pts) @ -Potentially, yes of ACS can result in significant morbidity mortality. - Lab Data Result diagrams: 01/22/24 16:33 01/22/24 16:33 Lab Results 01/22/24 01/22/24 01/22/24 Range/Units 16:33 16:33 16:33 WBC 10.1 (3.8-10.6) k/uL RBC 4.53 (4.30-5.90) m/uL Hgb 12.8 L (13.0-17.5) gm/dL Hct 39.1 (39.0-53.0) % MCV 86.3 (80.0-100.0) fL MCH 28.3 (25.0-35.0) pg MCHC 32.8 (31.0-37.0) g/dL RDW 14.8 (11.5-15.5) % Plt Count 255 (150-450) k/uL MPV 8.4 Neutrophils % 73 % Lymphocytes % 19 % Monocytes % 5 % Eosinophils % 1 % Basophils % 0 % Neutrophils # 7.4 (1.3-7.7) k/uL Lymphocytes # 1.9 (1.0-4.8) k/uL Monocytes # 0.5 (0-1.0) k/uL Eosinophils # 0.1 (0-0.7) k/uL Basophils # 0.1 (0-0.2) k/uL PT 10.2 (10.0-12.5) sec INR 0.9 (<1.2) APTT 21.9 L (22.0-30.0) sec Sodium 131 L (137-145) mmol/L Potassium 4.8 (3.5-5.1) mmol/L Chloride 96 L (98-107) mmol/L Carbon Dioxide 24 (22-30) mmol/L Anion Gap 11 mmol/L BUN 21 H (9-20) mg/dL Creatinine 1.39 H (0.66-1.25) mg/dL Est GFR (CKD-EPI)AfAm 62 (>60 ml/min/1.73 sqM) Est GFR (CKD-EPI)NonAf 53 (>60 ml/min/1.73 sqM) Glucose 318 H (74-99) mg/dL Calcium 9.0 (8.4-10.2) mg/dL Magnesium 1.5 L (1.6-2.3) mg/dL Total Bilirubin 0.9 (0.2-1.3) mg/dL AST 33 (17-59) U/L ALT 17 (4-49) U/L Alkaline Phosphatase 63 (38-126) U/L Troponin I (0.000-0.034) ng/mL Total Protein 7.0 (6.3-8.2) g/dL Albumin 4.1 (3.5-5.0) g/dL 01/22/24 Range/Units 16:33 WBC (3.8-10.6) k/uL RBC (4.30-5.90) m/uL Hgb (13.0-17.5) gm/dL Hct (39.0-53.0) % MCV (80.0-100.0) fL MCH (25.0-35.0) pg MCHC (31.0-37.0) g/dL RDW (11.5-15.5) % Plt Count (150-450) k/uL MPV Neutrophils % % Lymphocytes % % Monocytes % % Eosinophils % % Basophils % % Neutrophils # (1.3-7.7) k/uL Lymphocytes # (1.0-4.8) k/uL Monocytes # (0-1.0) k/uL Eosinophils # (0-0.7) k/uL Basophils # (0-0.2) k/uL PT (10.0-12.5) sec INR (<1.2) APTT (22.0-30.0) sec Sodium (137-145) mmol/L Potassium (3.5-5.1) mmol/L Chloride (98-107) mmol/L Carbon Dioxide (22-30) mmol/L Anion Gap mmol/L BUN (9-20) mg/dL Creatinine (0.66-1.25) mg/dL Est GFR (CKD-EPI)AfAm (>60 ml/min/1.73 sqM) Est GFR (CKD-EPI)NonAf (>60 ml/min/1.73 sqM) Glucose (74-99) mg/dL Calcium (8.4-10.2) mg/dL Magnesium (1.6-2.3) mg/dL Total Bilirubin (0.2-1.3) mg/dL AST (17-59) U/L ALT (4-49) U/L Alkaline Phosphatase (38-126) U/L Troponin I <0.012 (0.000-0.034) ng/mL Total Protein (6.3-8.2) g/dL Albumin (3.5-5.0) g/dL - EKG Data -: EKG Interpreted by Me EKG Comments: 12-lead Electrocardiogram Interpretation Note EKG was reviewed and interpreted by myself. 12-lead ECG performed at 1620 is interpreted by me as revealing normal sinus rhythm at a rate of 90 beats per minute. [place] is normal. SD interval is 193 ms, QRS duration is 120 ms, QTc is 417 ms.. There were no ST or T wave abnormalities to suggest myocardial ischemia or injury. R wave progression across the precordium was satisfactory. By my interpretation this EKG is non-diagnostic for acute ischemia. No significant change change when compared with prior EKG from December 2022. Disposition Clinical Impression: Chest pain Disposition: ADMITTED IP TO THIS HOSP Condition: Stable Time of Disposition: 18:00
[2024-01-22] MEDS: SODIUM CHLORIDE 0.9% 1,000 ML IV SCH (18:36)
[2024-01-22] MEDS: MAGNESIUM SULFATE-D5W PMX 1 GM in DEXTROSE/WATER 1 100ML.BAG IVPB ONE (18:41)
[2024-01-22] MEDS: IPRATROPIUM-ALBUTEROL 3 ML NEB INHALATION STA (18:54)
[2024-01-22 21:16] LABS: Glucose,Whole Blood 284 mg/dL (70-110)
[2024-01-22] MEDS: FERROUS SULFATE 325 MG TAB PO SCH (21:20)
[2024-01-22] MEDS: ATORVASTATIN 80 MG TAB PO SCH (21:21)
[2024-01-22] MEDS: INSULIN DETEMIR (LEVEMIR) 100 UNIT/ML SYR SQ SCH (21:21)
[2024-01-22] MEDS: HYDROcodone/APAP 10-325MG 1 EACH TAB PO SCH (21:21)
[2024-01-22] MEDS: Cariprazine Hcl [Vraylar] 3 MG Capsule PO SCH (21:22)
[2024-01-23] MEDS: HEPARIN SODIUM,PORCINE 5,000 UNIT/ML 1 ML VIAL SQ SCH (00:13)
[2024-01-23 02:17] LABS: Glucose,Whole Blood 171 mg/dL (70-110)
[2024-01-23 06:04] LABS: Glucose,Whole Blood 86 mg/dL (70-110)
[2024-01-23] MEDS: PANTOPRAZOLE 40 MG TABLET PO SCH (06:52)
[2024-01-23] MEDS ORDERED: AMINOPHYLLINE 500 MG/20 ML VIAL IV PRN (07:44)
[2024-01-23] MEDS ORDERED: REGADENOSON 0.4 MG/5 ML SYRINGE IV PRN (07:44)
[2024-01-23] MEDS ORDERED: CAFFEINE CITRATE 60 MG/3 ML VIAL IV PRN (07:44)
[2024-01-23] MEDS: metFORMIN 500 MG TAB PO SCH (07:57)
[2024-01-23] MEDS: LINAGLIPTIN 5 MG TABLET PO SCH (07:58)
[2024-01-23] MEDS: ASPIRIN 81 MG PO SCH (08:16)
[2024-01-23] MEDS: LOSARTAN-HCTZ 50-12.5 MG 1 EACH TAB PO SCH (08:16)
[2024-01-23] MEDS: FLUoxetine HCL 20 MG CAP PO SCH (08:16)
[2024-01-23 08:42] LABS: Basophils # (A) 0.05 X 10*3/uL (0.00-0.10); Basophils % (A) 0.6 %; Eosinophils # (A) 0.16 X 10*3/uL (0.04-0.35); Eosinophils % (A) 1.8 %; HCT 34.2 % (39.6-50.0); HGB 10.8 g/dL (13.0-17.0); Lymphocytes # (A) 2.89 X 10*3/uL (0.90-5.00); Lymphocytes % (A) 32.1 %; MCH 27.8 pg (27.0-32.0); MCHC 31.6 g/dL (32.0-37.0); MCV 88.1 FL (80.0-97.0); Mean Platelet Volume 10.6 FL (9.5-12.2); Monocytes # (A) 0.65 X 10*3/uL (0.20-1.00); Monocytes % (A) 7.2 %; NRBC Per 100 WBC 0 X 10*3/uL (0.00-0.01); Neutrophils # (A) 5.23 X 10*3/uL (1.80-7.70); Platelet Count 250 X 10*3/uL (140-440); RBC 3.88 X 10*6/uL (4.40-5.60); RDW 14.6 % (11.5-14.5); WBC 9.01 X 10*3/uL (4.50-10.00)
[2024-01-23 08:56] LABS: ALT 13 U/L (10-49); AST 14 U/L (14-35); Albumin 3.5 g/dL (3.8-4.9); Albumin/Globulin Ratio 1.84 Ratio (1.60-3.17); Alkaline Phosphatase 77 U/L (41-126); BUN/Creat Ratio 11.75 Ratio (12.00-20.00); Blood Urea Nitrogen 18.8 mg/dL (9.0-27.0); Calcium 8.4 mg/dL (8.7-10.3); Carbon Dioxide 26.1 mmol/L (21.6-31.8); Chloride 102 mmol/L (96-109); Globulin 1.9 g/dL (1.6-3.3); Glucose 152 mg/dL (70-110); Potassium 3.6 mmol/L (3.5-5.5); Sodium 137 mmol/L (135-145); Total Bilirubin 0.2 mg/dL (0.3-1.2); Total Protein 5.4 g/dL (6.2-8.2)
--- NOTE | 2024-01-23 09:13 | P.CRDCN ---
History of Present Illness History of present illness: HISTORY OF PRESENT ILLNESS: This is a 63-year-old male with a past medical history significant for hypertension, hyperlipidemia, diabetes. 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 We have been asked to see the patient in consultation for chest pain. Patient examined at the bedside. patient states yesterday he was walking to get his mail when he began to have significant chest pain and shortness of breath. He thought he was going to pass out from the pain. He came to the hospital for further evaluation. He denies having any further episode of chest pain or pressure. He denies any history of CAD. At the time of examination he is resting in bed comfortably. Vital signs are stable. EKG reveals sinus mechanism with no signs of acute ischemia. Cardiac enzymes are negative 3. REVIEW OF SYSTEMS: At the time of my exam: CONSTITUTIONAL: Denies fever or chills. HEENT: Denies blurred vision, vision changes, or eye pain. Denies hemoptysis CARDIOVASCULAR: Denies chest pain. Denies orthopnea. Denies PND. Denies palpit ations RESPIRATORY: Denies shortness of breath. GASTROINTESTINAL: Denies abdominal pain. Denies nausea or vomiting. HEMATOLOGIC: Denies bleeding disorders. GENITOURINARY: Denies any blood in urine. SKIN: Denies pruitis. Denies rash. PHYSICAL EXAM: VITAL SIGNS: Reviewed. GENERAL: Well-developed in no acute distress. HEENT: Head is normocephalic. Pupils are equal, round. Sclerae anicteric. Mucous membranes of the mouth are moist. Neck supple. No JVD or thyromegaly LUNGS: Respirations even and unlabored. Lungs essentially clear to auscultation bilaterally. HEART: Regular rate and rhythm. S1 and S2 heard. ABDOMEN: Soft. Nondistended. Nontender. EXTREMITIES: Normal range of motion. No clubbing or cyanosis. Peripheral pulses intact. No lower extremity edema NEUROLOGIC: Awake and alert. Oriented x 3. ASSESSMENT: Chest pain, troponins negative 3 Hypertension Hyperlipidemia Diabetes Obesity: BMI 40.3 PLAN: an acute coronary event has been ruled out Obtain 2-D echo to assess cardiac structure and function Resume home cardiac medications Obtain d-dimer D-dimer is negative, patient will undergo Lexiscan stress test today Further recommendations pending patient's course Nurse practitioner note has been reviewed by physician. Signing provider agrees with the documented findings, assessment, and plan of care. Past Medical History Past Medical History: Asthma, Chest Pain / Angina, COPD, Diabetes Mellitus, GERD/Reflux, Hyperlipidemia, Hypertension, Osteoarthritis (OA) Additional Past Medical History / Comment(s): hx Hemorrhoids, hx colon polyps., back pain & Left hip pain (waiting for hip surgery)., states rash on legs from rubbing together, hospitalized 08/21 to 08/24/22- pt states for sob & chest pain - heart cath done and egd for anemia, hx of nsaid use with black stools. History of Any Multi-Drug Resistant Organisms: None Reported Past Surgical History: Heart Catheterization, Hernia Repair, Orthopedic Surgery, Tonsillectomy Additional Past Surgical History / Comment(s): states hx of fall with right hip surgery Feb 2022 ., Left knee arthroscopy., surgery for undescended testicles, COLONOSCOPY., EGD, EYE SURGERY CHILD, heart cath [facility] 08/2022. Past Anesthesia/Blood Transfusion Reactions: No Reported Reaction Past Psychological History: Bipolar Smoking Status: Never smoker Past Alcohol Use History: Occasional Past Drug Use History: Marijuana Additional Drug Use History / Comment(s): Marijuana Daily., Aware no use 24 hrs prior to procedure. - Past Family History Father Family Medical History: Cancer Additional Family Medical History / Comment(s): Pancreatic cancer - at 58. Mother Family Medical History: No Reported History, Coronary Artery Disease (CAD) Additional Family Medical History / Comment(s): "Stent in heart, had blood c lots." Medications and Allergies Home Medications Medication Instructions Recorded Confirmed Type FLUoxetine HCL [PROzac] 40 mg PO DAILY 10/04/21 01/22/24 History Omeprazole 20 mg PO DAILY 10/04/21 01/22/24 History Insulin Degludec [Tresiba] 48 units SQ HS 01/31/22 01/22/24 History Cariprazine HCl [Vraylar] 3 mg PO HS 08/21/22 01/22/24 History Turmeric Root Extract [Turmeric] 1,000 mg PO DAILY 08/21/22 01/22/24 History Atorvastatin [Lipitor] 80 mg PO HS #30 tab 08/24/22 01/22/24 Rx HYDROcodone/APAP 10-325MG [[place] 1 tab PO QID 12/06/22 01/22/24 History 10-325] metFORMIN HCL [Glucophage] 1,000 mg PO DAILY 12/06/22 01/22/24 History Ferrous Sulfate [Feosol] 325 mg PO BID 01/22/24 01/22/24 History Linagliptin [Tradjenta] 5 mg PO DAILY 01/22/24 01/22/24 History Losartan/Hydrochlorothiazide 1 tab PO DAILY 01/22/24 01/22/24 History [Hyzaar 100-25 Tablet] Magnesium 325mg 975 mg PO DAILY 01/22/24 01/22/24 History Vitamin B-12(Unknown Dose) 1 tab PO DAILY 01/22/24 01/22/24 History Vitamin D3(Unknown Dose) 1 tab PO DAILY 01/22/24 01/22/24 History Allergies Allergy/AdvReac Type Severity Reaction Status Date / Time empagliflozin Allergy High blood Verified 01/22/24 18:17 [From Jardiance] sugar Penicillins Allergy Rash/Hives Verified 01/22/24 18:17 NSAIDS (Non-Steroidal AdvReac Unknown GI BLEED Verified 01/22/24 18:17 Anti-Inflamma Physical Exam Vitals: Vital Signs Temp Pulse Pulse Resp BP BP Pulse Ox 01/23/24 01:08 97.9 F 74 18 109/70 98 01/22/24 22:15 98.0 F 80 18 131/75 98 01/22/24 19:45 80 18 148/88 97 01/22/24 19:02 74 01/22/24 18:54 76 96 01/22/24 17:18 87 18 129/89 97 01/22/24 17:16 80 01/22/24 16:12 97.4 F L 98 20 155/80 98 Intake and Output 01/22/24 01/23/24 01/23/24 22:59 06:59 14:59 Intake Total 240 0 Balance 240 0 Intake: Oral 240 0 Other: # Voids 1 2 Weight 120.202 kg Results 01/23/24 03:39 01/23/24 03:39 Cardiac Enzymes 01/22/24 01/22/24 01/22/24 Range/Units 16:33 16:33 20:21 AST 33 (17-59) U/L Troponin I <0.012 <0.012 (0.000-0.034) ng/mL 01/22/24 Range/Units 23:53 AST (17-59) U/L Troponin I <0.012 (0.000-0.034) ng/mL Coagulation 01/22/24 Range/Units 16:33 PT 10.2 (10.0-12.5) sec APTT 21.9 L (22.0-30.0) sec CBC 01/22/24 Range/Units 16:33 WBC 10.1 (3.8-10.6) k/uL RBC 4.53 (4.30-5.90) m/uL Hgb 12.8 L (13.0-17.5) gm/dL Hct 39.1 (39.0-53.0) % Plt Count 255 (150-450) k/uL Comprehensive Metabolic Panel 01/22/24 Range/Units 16:33 Sodium 131 L (137-145) mmol/L Potassium 4.8 (3.5-5.1) mmol/L Chloride 96 L (98-107) mmol/L Carbon Dioxide 24 (22-30) mmol/L BUN 21 H (9-20) mg/dL Creatinine 1.39 H (0.66-1.25) mg/dL Glucose 318 H (74-99) mg/dL Calcium 9.0 (8.4-10.2) mg/dL AST 33 (17-59) U/L ALT 17 (4-49) U/L Alkaline Phosphatase 63 (38-126) U/L Total Protein 7.0 (6.3-8.2) g/dL Albumin 4.1 (3.5-5.0) g/dL Current Medications Generic Name Dose Route Start Last Admin Trade Name Freq PRN Reason Stop Dose Admin Hydrocodone Bitart/Acetaminophen 1 each 01/22/24 22:00 01/22/24 21:21 Hydrocodone/Apap 10-325mg 1 Each Tab PO 1 each QID WENDY Administration Atorvastatin Calcium 80 mg 01/22/24 21:00 01/22/24 21:21 Atorvastatin 80 Mg Tab PO 80 mg HS WENDY Administration Ferrous Sulfate 325 mg 01/22/24 21:00 01/22/24 21:20 Ferrous Sulfate 325 Mg Tab PO 325 mg BID WENDY Administration Fluoxetine HCl 40 mg 01/23/24 09:00 Fluoxetine Hcl 20 Mg Cap PO DAILY WENDY HCTZ/Losartan Potassium 2 each 01/23/24 09:00 Losartan-Hctz 50-12.5 Mg 1 Each Tab PO DAILY WENDY Heparin Sodium (Porcine) 5,000 unit 01/23/24 00:00 01/23/24 00:13 Heparin Sodium,Porcine 5,000 Unit/Ml 1 Ml Vial SQ 5,000 unit Q8HR WENDY Administration Sodium Chloride 1,000 mls @ 75 mls/hr 01/22/24 18:00 01/23/24 06:52 Saline 0.9% IV 75 mls/hr .[id number] WENDY Administration Insulin Detemir 48 unit 01/22/24 21:00 01/22/24 21:21 Insulin Detemir (Levemir) 100 Unit/Ml Syr SQ 48 unit HS WENDY Administration Linagliptin 5 mg 01/23/24 09:00 Linagliptin 5 Mg Tablet PO DAILY [facility] Metformin HCl 1,000 mg 01/23/24 07:30 Metformin 500 Mg Tab PO AC-BRKFST [facility] Naloxone HCl 0.2 mg 01/22/24 17:59 Naloxone 0.4 Mg/Ml 1 Ml Vial IV Q2M PRN Opioid Reversal Cariprazine Hcl [ 3 mg 01/22/24 21:00 01/22/24 21:22 Vraylar] 3 Mg PO Not Given Capsule HS [facility] Ondansetron HCl 4 mg 01/22/24 17:59 Ondansetron 4 Mg/2 Ml Vial IVP Q8HR PRN Nausea And Vomiting Pantoprazole Sodium 40 mg 01/23/24 07:30 01/23/24 06:52 Pantoprazole 40 Mg Tablet PO 40 mg AC-BRKFST [facility] Administration Intake and Output 01/22/24 01/23/24 01/23/24 22:59 06:59 14:59 Intake Total 240 0 Balance 240 0 Intake: Oral 240 0 Other: # Voids 1 2 Weight 120.202 kg 01/22/24 16:33 01/22/24 16:33
[2024-01-23 13:25] LABS: Glucose,Whole Blood 75 mg/dL (70-110)
--- NOTE | 2024-01-23 17:35 | CA ---
Transthoracic Echo Report Name: Nba oLpez Age: 63 Gender: M : 1960 Exam Date: 01/23/2024 12:26 Exam Location: [place] Echo Ht (in): 68 Wt (lb): 265 Ordering Physician: Joanna Melara Attending/Referring Phys: [id number], Saritha Infection Control Practitioner Diana Cordero, MARILYN Procedure CPT: Indications: LV function, CP Cardiac Hx: Mitral regurgitation Technical Quality: Fair Contrast 1: Total Dose (mL): Contrast 2: Total Dose (mL): MEASUREMENTS (Male / Female) Normal Values 2D ECHO LV Diastolic Diameter PLAX 5.0 cm 4.2 - 5.9 / 3.9 - 5.3 cm LV Systolic Diameter PLAX 3.3 cm IVS Diastolic Thickness 1.5 cm 0.6 - 1.0 / 0.6 - 0.9 cm LVPW Diastolic Thickness 1.5 cm 0.6 - 1.0 / 0.6 - 0.9 cm LV Relative Wall Thickness 0.6 RV Internal Dim ED PLAX 3.3 cm LA Systolic Diameter LX 3.9 cm 3.0 - 4.0 / 2.7 - 3.8 cm LV Diastolic Volume MOD BP 124.8 cm??? 67 - 155 / 56 - 104 cm??? LV Systolic Volume MOD BP 52.7 cm??? - / 19 - 49 cm??? LV Ejection Fraction MOD BP 57.8 % >= 55 % LV Cardiac Index MOD BP 2319.2 cm???/min???m??? LV Diastolic Volume MOD 4C 107.8 cm??? LV Systolic Volume MOD 4C 43.4 cm??? LV Ejection Fraction MOD 4C 59.7 % LV Cardiac Index MOD 4C 2069.4 cm???/min???m??? LV Diastolic Length 4C 7.7 cm LV Systolic Length 4C 6.1 cm LV Diastolic Volume MOD 2C 132.5 cm??? LV Systolic Volume MOD 2C 55.5 cm??? LV Ejection Fraction MOD 2C 58.1 % LV Cardiac Index MOD 2C 2475.8 cm???/min???m??? LV Diastolic Length 2C 8.5 cm LV Systolic Length 2C 7.0 cm LA Volume 71.6 cm??? - / 22 - 52 cm??? LA Volume Index 29.1 cm???/m??? 16 - 28 cm???/m??? M-MODE Aortic Root Diameter MM 3.1 cm AV Cusp Separation MM 2.1 cm DOPPLER AV Peak Velocity 138.3 cm/s AV Peak Gradient 7.7 mmHg MV Peak Velocity 140.3 cm/s MV Peak Gradient 7.9 mmHg MV Mean Velocity 77.7 cm/s MV Mean Gradient 2.8 mmHg MV Velocity Time Integral 36.6 cm MV Area PHT 3.2 cm??? Mitral E Point Velocity 105.7 cm/s Mitral A Point Velocity 92.1 cm/s Mitral E to A Ratio 1.1 MV Deceleration Time 234.0 ms FINDINGS Left Ventricle Left ventricular ejection fraction is estimated at 55-60 %. Left ventricular cavity size normal. Moderate concentric left ventricular hypertrophy. Normal left ventricular wall motion. Right Ventricle Right ventricular dilatation. Unable to estimate the right ventricular systolic pressure. Right Atrium Normal right atrial size. No right atrial thrombus or mass seen. Left Atrium Mildly increased left atrial volume. Mildly increased left atrial area. Mitral Valve Mitral valve thickened. Mitral annular calcification. Moderate mitral regurgitation. Anteriorly directed mitral regurgitation jet. Prolapse of the posterior mitral valve leaflet. Aortic Valve Trileaflet aortic valve. No aortic valve stenosis or regurgitation. Tricuspid Valve Structurally normal tricuspid valve. No tricuspid stenosis, regurgitation or prolapse. Pulmonic Valve Pulmonic valve not well visualized. Mild pulmonic regurgitation. Pericardium No pericardial or pleural effusion. Aorta Normal size aortic root and proximal ascending aorta. CONCLUSIONS EF 50-55. Mild MV prolapse of posterior leaflet. Moderate eccentric jet of mitral regurgitation Previewed by: Dr. Tod Warren MD (Electronically Signed) Final Date: 23 January 2024 17:35
--- NOTE | 2024-01-23 17:41 | CA ---
Lexiscan Nuclear Stress Test Report Name: Nba Lopez Exam Date: 01/23/2024 12:17 Exam Location: [place] Stress Ht (in): 68 Wt (lb): 265 BSA: 2.30 Ordering Phys: Joanna Melara Referring Phys: Melody,, Technologist: Gino Morales Age: 63 Gender: M : 1960 Procedure CPT: Indications: Reflex order-Stress test ICD-10 Codes: Patient History: Medications: SEE CHART Meds past 24 hrs: Pretest Chest Pain: STRESS TEST Lexiscan Protocol Exercise Duration (min:sec): 02:[address] Depressions (mm): Angina Score: Dan Score: Resting HR (bpm): 61 Peak HR (bpm): 95 Resting BP (mmHg): 144 / 70 Peak BP (mmHg): 158 / 71 MPHR: 156 Target HR: 133 % MPHR: 61 METS: 1.0 Total Dose: Peak Dose: Atropine: Double Product: 88806 BP Response: Stress Termination: INFUSION COMPLETE Stress Symptoms: NO SYMPTOMS Stress Summary: ECG ANALYSIS Resting ECG: Normal sinus rhythm normal axis normal intervals Stress ECG: Patient was given Lexiscan as a protocol did not have chest pain or diagnostic ST segment depression CONCLUSIONS Negative stress test by EKG criteria Cardiolite portion of the stress test will be reported separately Dr. Tod Warren MD (Electronically Signed) Final Date: 23 January 2024 17:40
[2024-01-23 18:04] LABS: Glucose,Whole Blood 130 mg/dL (70-110)
[2024-01-23 20:04] LABS: Glucose,Whole Blood 178 mg/dL (70-110)
[2024-01-24] MEDS ORDERED: DEXTROSE 50% SYRINGE 50 ML IVP PRN ×2 (05:09)
[2024-01-24] MEDS ORDERED: ACETAMINOPHEN TAB 325 MG TAB PO PRN (05:10)
--- NOTE | 2024-01-24 05:19 | P.HPIM ---
History of Present Illness H&P Date: 01/23/24 This is a 63-year-old male who presented to the emergency department with chest pain while walking to get his mail and felt extremely short of breath like he was going to pass out. Patient reports he follows with Dr. Zepeda in the outpatient setting with past medical history of asthma, angina, COPD, diabetes mellitus, GERD, hyperlipidemia, hypertension, osteoarthritis, and bipolar disorder. Patient reports he does not smoke and occasionally very rarely will drink but he does report to using marijuana occasionally as well. Patient did have troponins x 3 that were negative and patient was admitted for cardiology consultation for chest pain. Patient evaluated this morning by cardiology r ecommending stress testing which is currently pending at this time. REVIEW OF SYSTEMS: CONSTITUTIONAL: No fever, no malaise, no fatigue. HEENT: No recent visual problems or hearing problems. Denied any sore throat. CARDIOVASCULAR: Reports of chest pain that has resolved, orthopnea, PND, no palpitations, no syncope. PULMONARY: Reports of shortness of breath during the chest pain episode, no co ugh, no hemoptysis. GASTROINTESTINAL: No diarrhea, no nausea, no vomiting, no abdominal pain. NEUROLOGICAL: No headaches, no weakness, no numbness. HEMATOLOGICAL: Denies any bleeding or petechiae. GENITOURINARY: Denies any burning micturition, frequency, or urgency. MUSCULOSKELETAL/RHEUMATOLOGICAL: Denies any joint pain, swelling, or any muscle pain. ENDOCRINE: Denies any polyuria or polydipsia. The rest of the 14-point review of systems is negative. PHYSICAL EXAMINATION: GENERAL: The patient is alert and oriented x3, not in any acute distress. Well developed, morbidly obese HEENT: Pupils are round and equally reacting to light. EOMI. No scleral icterus. No conjunctival pallor. Normocephalic, atraumatic. No pharyngeal erythema. No thyromegaly. CARDIOVASCULAR: S1 and S2 muffled PULMONARY: Diminished breath sounds bilaterally otherwise chest is clear to auscultation, no wheezing or crackles. ABDOMEN: Soft, obese nontender, nondistended, normoactive bowel sounds. No palpable organomegaly. MUSCULOSKELETAL: No joint swelling or deformity. EXTREMITIES: No cyanosis, clubbing, or pedal edema. NEUROLOGICAL: Gross neurological examination did not reveal any focal deficits. SKIN: No rashes. Assessment: Chest pain, ruled out ACS, troponins x 3 were negative History of hypertension History of hyperlipidemia Diabetes mellitus, type II, uncontrolled with hyperglycemia Acute kidney injury, possibly secondary to losartan/hydrochlorothiazide use and will hold for now. Patient also takes metformin which will be held GERD Osteoarthritis history COPD, not in exacerbation Bipolar history Morbid obesity with a BMI of 40.3 GI prophylaxis DVT prophylaxis Full code Plan: Patient was admitted for cardiology evaluation. Troponins x 3 were negative. Patient to undergo stress testing with echo and per cardiology if negative okay for discharge. Stress test is pending at this time Will hold losartan/hydrochlorothiazide as well as metformin follow-up with repeat kidney functions Continue monitoring Accu-Cheks before meals and at bedtime and will add sliding scale Will await Lexiscan report with possible discharge in the next 24 hours The impression and plan of care has been dictated by Juanita Gómez, Nurse Practitioner as directed. Dr. Layo MD I have performed a history and examination and MDM of this patient, discussed the same with the dictator, and agree with the dictator's assessment and plan as written ,documented as a scribe. Based on total visit time, I have performed more than 50% of the visit. Past Medical History Past Medical History: Asthma, Chest Pain / Angina, COPD, Diabetes Mellitus, GERD/Reflux, Hyperlipidemia, Hypertension, Osteoarthritis (OA) Additional Past Medical History / Comment(s): hx Hemorrhoids, hx colon polyps., back pain & Left hip pain (waiting for hip surgery)., states rash on legs from rubbing together, hospitalized 08/21 to 08/24/22- pt states for sob & chest pain - heart cath done and egd for anemia, hx of nsaid use with black stools. History of Any Multi-Drug Resistant Organisms: None Reported Past Surgical History: Heart Catheterization, Hernia Repair, Orthopedic Surgery, Tonsillectomy Additional Past Surgical History / Comment(s): states hx of fall with right hip surgery Feb 2022 ., Left knee arthroscopy., surgery for undescended testicles, COLONOSCOPY., EGD, EYE SURGERY CHILD, heart cath [facility] 08/2022. Past Anesthesia/Blood Transfusion Reactions: No Reported Reaction Past Psychological History: Bipolar Smoking Status: Never smoker Past Alcohol Use History: Occasional Past Drug Use History: Marijuana Additional Drug Use History / Comment(s): Marijuana Daily., Aware no use 24 hrs prior to procedure. - Past Family History Father Family Medical History: Cancer Additional Family Medical History / Comment(s): Pancreatic cancer - at 58. Mother Family Medical History: No Reported History, Coronary Artery Disease (CAD) Additional Family Medical History / Comment(s): "Stent in heart, had blood clots." Medications and Allergies Home Medications Medication Instructions Recorded Confirmed Type FLUoxetine HCL [PROzac] 40 mg PO DAILY 10/04/21 01/22/24 History Omeprazole 20 mg PO DAILY 10/04/21 01/22/24 History Insulin Degludec [Tresiba] 48 units SQ HS 01/31/22 01/22/24 History Cariprazine HCl [Vraylar] 3 mg PO HS 08/21/22 01/22/24 History Turmeric Root Extract [Turmeric] 1,000 mg PO DAILY 08/21/22 01/22/24 History Atorvastatin [Lipitor] 80 mg PO HS #30 tab 08/24/22 01/22/24 Rx HYDROcodone/APAP 10-325MG [[place] 1 tab PO QID 12/06/22 01/22/24 History 10-325] metFORMIN HCL [Glucophage] 1,000 mg PO DAILY 12/06/22 01/22/24 History Ferrous Sulfate [Iron (65 MG 325 mg PO BID 01/22/24 01/22/24 History Elemental)] Linagliptin [Tradjenta] 5 mg PO DAILY 01/22/24 01/22/24 History Losartan/Hydrochlorothiazide 1 tab PO DAILY 01/22/24 01/22/24 History [Hyzaar 100-25 Tablet] Magnesium 325mg 975 mg PO DAILY 01/22/24 01/22/24 History Vitamin B-12(Unknown Dose) 1 tab PO DAILY 01/22/24 01/22/24 History Vitamin D3(Unknown Dose) 1 tab PO DAILY 01/22/24 01/22/24 History Aspirin 81 mg PO DAILY #30 tab 01/23/24 Rx Allergies Allergy/AdvReac Type Severity Reaction Status Date / Time empagliflozin Allergy High blood Verified 01/22/24 18:17 [From Jardiance] sugar Penicillins Allergy Rash/Hives Verified 01/22/24 18:17 NSAIDS (Non-Steroidal AdvReac Unknown GI BLEED Verified 01/22/24 18:17 Anti-Inflamma Physical Exam Vitals: Vital Signs Temp Pulse Pulse Pulse Resp BP BP 01/23/24 07:00 97.6 F 67 18 143/91 01/23/24 01:08 97.9 F 74 18 109/70 01/22/24 22:15 98.0 F 80 18 131/75 01/22/24 19:45 80 18 148/88 01/22/24 19:02 74 01/22/24 18:54 76 01/22/24 17:18 87 18 129/89 01/22/24 17:16 80 01/22/24 16:12 97.4 F L 98 20 155/80 Pulse Ox 01/23/24 07:00 97 01/23/24 01:08 98 01/22/24 22:15 98 01/22/24 19:45 97 01/22/24 19:02 01/22/24 18:54 96 01/22/24 17:18 97 01/22/24 17:16 01/22/24 16:12 98 Intake and Output 01/22/24 01/23/24 01/23/24 22:59 06:59 14:59 Intake Total 240 0 Balance 240 0 Intake: Oral 240 0 Other: # Voids 1 2 Weight 120.202 kg Results CBC & Chem 7: 01/23/24 03:39 01/23/24 03:39 Labs: Abnormal Lab Results - Last 24 Hours (Table) 01/22/24 01/22/24 01/22/24 Range/Units 16:33 16:33 16:33 RBC (4.40-5.60) X 10*6/uL Hgb 12.8 L (13.0-17.5) gm/dL Hct (39.6-50.0) % MCHC (32.0-37.0) g/dL RDW (11.5-14.5) % APTT 21.9 L (22.0-30.0) sec Sodium 131 L (137-145) mmol/L Chloride 96 L (98-107) mmol/L BUN 21 H (9-20) mg/dL Creatinine 1.39 H (0.66-1.25) mg/dL Est GFR (CKD-EPI) (>=60) BUN/Creatinine Ratio (12.00-20.00) Ratio Glucose 318 H (74-99) mg/dL POC Glucose (mg/dL) (70-110) mg/dL Calcium (8.7-10.3) mg/dL Magnesium 1.5 L (1.6-2.3) mg/dL Total Bilirubin (0.3-1.2) mg/dL Total Protein (6.2-8.2) g/dL Albumin (3.8-4.9) g/dL 01/22/24 01/23/24 01/23/24 Range/Units 21:14 02:16 03:39 RBC 3.88 L (4.40-5.60) X 10*6/uL Hgb 10.8 L (13.0-17.5) gm/dL Hct 34.2 L (39.6-50.0) % MCHC 31.6 L (32.0-37.0) g/dL RDW 14.6 H (11.5-14.5) % APTT (22.0-30.0) sec Sodium (137-145) mmol/L Chloride (98-107) mmol/L BUN (9-20) mg/dL Creatinine (0.66-1.25) mg/dL Est GFR (CKD-EPI) (>=60) BUN/Creatinine Ratio (12.00-20.00) Ratio Glucose (74-99) mg/dL POC Glucose (mg/dL) 284 H 171 H (70-110) mg/dL Calcium (8.7-10.3) mg/dL Magnesium (1.6-2.3) mg/dL Total Bilirubin (0.3-1.2) mg/dL Total Protein (6.2-8.2) g/dL Albumin (3.8-4.9) g/dL 01/23/24 Range/Units 03:39 RBC (4.40-5.60) X 10*6/uL Hgb (13.0-17.5) gm/dL Hct (39.6-50.0) % MCHC (32.0-37.0) g/dL RDW (11.5-14.5) % APTT (22.0-30.0) sec Sodium (137-145) mmol/L Chloride (98-107) mmol/L BUN (9-20) mg/dL Creatinine 1.6 H (0.66-1.25) mg/dL Est GFR (CKD-EPI) 48 L (>=60) BUN/Creatinine Ratio 11.75 L (12.00-20.00) Ratio Glucose 152 H (74-99) mg/dL POC Glucose (mg/dL) (70-110) mg/dL Calcium 8.4 L (8.7-10.3) mg/dL Magnesium (1.6-2.3) mg/dL Total Bilirubin 0.2 L (0.3-1.2) mg/dL Total Protein 5.4 L (6.2-8.2) g/dL Albumin 3.5 L (3.8-4.9) g/dL
[2024-01-24 05:59] LABS: Glucose,Whole Blood 55 mg/dL (70-110)
[2024-01-24] MEDS: INSULIN ASPART (NovoLOG) 100 UNIT/ML VIAL SQ SCH (06:03)
[2024-01-24 07:42] LABS: ALT 18 U/L (4-49); AST 29 U/L (17-59); African American GFR (CKD) 58 (>60 ml/min/1.73 sqM); Albumin 3.4 g/dL (3.5-5.0); Albumin/Globulin Ratio 1.4; Alkaline Phosphatase 69 U/L (38-126); Anion Gap 7 mmol/L; Blood Urea Nitrogen 20 mg/dL (9-20); Calcium 8.8 mg/dL (8.4-10.2); Carbon Dioxide 28 mmol/L (22-30); Chloride 104 mmol/L (98-107); Globulin 2.5 g/dL; Glucose 150 mg/dL (74-99); Magnesium 1.5 mg/dL (1.6-2.3); Non-African American GFR(CKD) 50 (>60 ml/min/1.73 sqM); Potassium 3.8 mmol/L (3.5-5.1); Sodium 139 mmol/L (137-145); Total Bilirubin 0.6 mg/dL (0.2-1.3); Total Protein 5.9 g/dL (6.3-8.2)
[2024-01-24] MEDS ORDERED: Magnesium Replacement Protocol 1 EACH MISC MISCELLANE PRN (08:30)
--- NOTE | 2024-01-24 09:31 | P.PN ---
Subjective HISTORY OF PRESENT ILLNESS: This is a 63-year-old male with a past medical history significant for hypertension, hyperlipidemia, diabetes. 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 We have been asked to see the patient in consultation for chest pain. Patient examined at the bedside. patient states yesterday he was walking to get his mail when he began to have significant chest pain and shortness of breath. He thought he was going to pass out from the pain. He came to the hospital for further evaluation. He denies having any further episode of chest pain or pressure. He denies any history of CAD. At the time of examination he is resting in bed comfortably. Vital signs are stable. EKG reveals sinus mechanism with no signs of acute ischemia. Cardiac enzymes are negative 3. 01/24/2024 Patient examined this morning by Dr. Warren. Patient currently denies chest pain or pressure. He denies any shortness of breath. Vital signs are stable. Patient underwent Lexiscan stress test yesterday. Results are still pending as of this morning. Echocardiogram completed revealing ejection fraction 50 to 55% with moderate mitral regurgitation with anteriorly directed mitral regurgitation jet. Prolapse of the posterior mitral valve leaflet. PHYSICAL EXAM: VITAL SIGNS: Reviewed. GENERAL: Well-developed in no acute distress. HEENT: Head is normocephalic. Pupils are equal, round. Sclerae anicteric. Mucous membranes of the mouth are moist. Neck supple. No JVD or thyromegaly LUNGS: Respirations even and unlabored. Lungs essentially clear to auscultation bilaterally. HEART: Regular rate and rhythm. S1 and S2 heard. ABDOMEN: Soft. Nondistended. Nontender. EXTREMITIES: Normal range of motion. No clubbing or cyanosis. Peripheral pulses intact. No lower extremity edema NEUROLOGIC: Awake and alert. Oriented x 3. ASSESSMENT: Chest pain, troponins negative 3, status post Jennifer scan results pending Hypertension Hyperlipidemia Diabetes Obesity: BMI 40.3 PLAN: Continue current cardiac medications Awaiting Lexiscan results. If negative, patient may be discharged home from from a cardiac standpoint Further recommendations pending patient's course Nurse practitioner note has been reviewed by physician. Signing provider agrees with the documented findings, assessment, and plan of care. Objective - Vital Signs Vital signs: Vital Signs Temp 98.0 F 01/24/24 02:00 Pulse 74 01/24/24 02:00 Resp 18 01/24/24 02:00 BP 114/71 01/24/24 02:00 Pulse Ox 98 01/24/24 02:00 FiO2 Intake & Output 01/23/24 01/24/24 01/24/24 18:59 06:59 18:59 Intake Total 100 560 Balance 100 560 Intake: Oral 100 560 Other: # Voids 3 3 - Labs CBC & Chem 7: 01/23/24 03:39 01/24/24 06:55 Labs: Abnormal Lab Results - Last 24 Hours (Table) 01/23/24 01/23/24 01/23/24 Range/Units 08:55 18:03 20:02 Creatinine (0.66-1.25) mg/dL Glucose (74-99) mg/dL POC Glucose (mg/dL) 130 H 178 H (70-110) mg/dL Magnesium (1.6-2.3) mg/dL NT-Pro-B Natriuret Pep 334 H (0-125) pg/mL Total Protein (6.3-8.2) g/dL Albumin (3.5-5.0) g/dL 01/24/24 01/24/24 Range/Units 05:58 06:55 Creatinine 1.46 H (0.66-1.25) mg/dL Glucose 150 H (74-99) mg/dL POC Glucose (mg/dL) 55 L (70-110) mg/dL Magnesium 1.5 L (1.6-2.3) mg/dL NT-Pro-B Natriuret Pep (0-125) pg/mL Total Protein 5.9 L (6.3-8.2) g/dL Albumin 3.4 L (3.5-5.0) g/dL
[2024-01-24] MEDS: MAGNESIUM SULFATE-D5W PMX 1 GM in DEXTROSE/WATER 1 100ML.BAG IVPB SCH (10:02)
--- NOTE | 2024-01-24 10:19 | NM ---
EXAMINATION TYPE: NM stress lexiscan cardiolite DATE OF EXAM: 01/23/2024 COMPARISON: NONE CLINICAL INDICATION: Male, 63 years old with history of CP; TECHNIQUE: After the intravenous administration of 10.09 mCi Tc 99m Sestamibi - Cardiolite resting S PECT images acquired 45 minutes post injection. The patient received 0.4mg Lexiscan, 26.1 mCi Tc 99m Sestamibi - Stress images obtained [address] injection FINDINGS: Review of stress and rest SPECT images demonstrates a small area of reversibility along the inferior apical wall. No distinct perfusion abnormality. Gated analysis shows normal wall motion with an jarad mated left ventricular ejection fraction of 57 %. TID is upper limits of normal at 1.0. IMPRESSION: Images suggest a small area of reversibility at the inferior apical wall. Further clinica l correlation recommended.
[2024-01-24] MEDS ORDERED: ALPRAZolam 0.5 MG TAB PO PRN (11:17)
[2024-01-24] MEDS ORDERED: NITROGLYCERIN SL TABS 0.4 MG TAB SUBLINGUAL PRN (11:17)
[2024-01-24] MEDS ORDERED: ALPRAZolam 0.25 MG TAB PO PRN (11:17)
--- NOTE | 2024-01-24 11:59 | P.PN ---
Subjective Progress Note Date: 01/24/24 Patient is a 63-year-old male who presented to the emergency department with chest pain while walking to get his mail and felt extremely short of breath like he was going to pass out. Patient reports he follows with Dr. Zepeda in the outpatient setting with past medical history of asthma, angina, COPD, diabetes mellitus, GERD, hyperlipidemia, hypertension, osteoarthritis, and bipolar disorder. Patient reports he does not smoke and occasionally very rarely will drink but he does report to using marijuana occasionally as well. Patient did have troponins x 3 that were negative and patient was admitted for cardiology consultation for chest pain. Patient evaluated by cardiology recommending stress testing. 01/23. Patient is seen and examined. Stress test performed yesterday was negative. Echocardiogram shows EF 50-55%, mild mitral valve prolapse of posterior leaflet, moderate eccentric jet of mitral regurgitation. D-dimer was negative. Patient endorses continued chest pain. Denies shortness of breath, abdominal pain. Lexiscan revealed: Small area of reversibility at the inferior apical wall. ROS reviewed. Pertinent positives and negatives discussed above, a complete review of systems was performed and all the other systems were negative. Vital signs are stable. General: No acute distress. HEENT: Head exam is unremarkable. Lungs: Bilateral breath sounds present; no rhonchi, wheezes, or rales. Heart: Rate and rhythm are regular. Abdomen: Nontender. Extremities: No edema present. Assessment/Plan: Chest pain ACS ruled out, troponins x 3 negative Lexiscan revealed small area of reversibility at the inferior apical Cardiology recommends cardiac catheterization on Saturday Hypertension Hold losartan/hydrochlorothiazide Hyperlipidemia Continue Lipitor Diabetes mellitus type 2 Insulin sliding scale Hold metformin Continue Tradjenta Acute kidney injury, possibly secondary to losartan/hydrochlorothiazide use Hold losartan/hydrochlorothiazide Hold metformin COPD, not currently in exacerbation History of GERD Continue Protonix History of bipolar Continue Vraylar Continue Prozac Morbid obesity with a BMI of 40.3 Dr. Layo MD I have performed a history and physical examination and medical decision making of this patient, discussed the same with the the resident, and agree with the assessment and plan as written. I performed brief physical exam. Objective - Vital Signs Vital signs: Vital Signs Temp 98.0 F 01/24/24 02:00 Pulse 74 01/24/24 02:00 Resp 18 01/24/24 02:00 BP 114/71 01/24/24 02:00 Pulse Ox 98 01/24/24 02:00 FiO2 Intake & Output 01/23/24 01/24/24 01/24/24 18:59 06:59 18:59 Intake Total 100 560 Balance 100 560 Intake: Oral 100 560 Other: # Voids 3 3 - Labs CBC & Chem 7: 01/23/24 03:39 01/24/24 06:55 Labs: Abnormal Lab Results - Last 24 Hours (Table) 01/23/24 01/23/24 01/23/24 Range/Units 03:39 03:39 08:55 RBC 3.88 L (4.40-5.60) X 10*6/uL Hgb 10.8 L (13.0-17.0) g/dL Hct 34.2 L (39.6-50.0) % MCHC 31.6 L (32.0-37.0) g/dL RDW 14.6 H (11.5-14.5) % Creatinine 1.6 H (0.6-1.5) mg/dL Est GFR (CKD-EPI) 48 L (>=60) BUN/Creatinine Ratio 11.75 L (12.00-20.00) Ratio Glucose 152 H (70-110) mg/dL POC Glucose (mg/dL) (70-110) mg/dL Calcium 8.4 L (8.7-10.3) mg/dL Total Bilirubin 0.2 L (0.3-1.2) mg/dL NT-Pro-B Natriuret Pep 334 H (0-125) pg/mL Total Protein 5.4 L (6.2-8.2) g/dL Albumin 3.5 L (3.8-4.9) g/dL 01/23/24 01/23/24 01/24/24 Range/Units 18:03 20:02 05:58 RBC (4.40-5.60) X 10*6/uL Hgb (13.0-17.0) g/dL Hct (39.6-50.0) % MCHC (32.0-37.0) g/dL RDW (11.5-14.5) % Creatinine (0.6-1.5) mg/dL Est GFR (CKD-EPI) (>=60) BUN/Creatinine Ratio (12.00-20.00) Ratio Glucose (70-110) mg/dL POC Glucose (mg/dL) 130 H 178 H 55 L (70-110) mg/dL Calcium (8.7-10.3) mg/dL Total Bilirubin (0.3-1.2) mg/dL NT-Pro-B Natriuret Pep (0-125) pg/mL Total Protein (6.2-8.2) g/dL Albumin (3.8-4.9) g/dL
[2024-01-24 12:58] LABS: Glucose,Whole Blood 115 mg/dL (70-110)
[2024-01-24 12:58] LABS: Glucose,Whole Blood 284 mg/dL (70-110)
[2024-01-24 17:18] LABS: Glucose,Whole Blood 186 mg/dL (70-110)
[2024-01-24 20:13] LABS: Glucose,Whole Blood 222 mg/dL (70-110)
[2024-01-25 06:24] LABS: Glucose,Whole Blood 75 mg/dL (70-110)
[2024-01-25] MEDS ORDERED: HEPARIN SODIUM,PORCINE 10,000 UNIT in SODIUM CHLORIDE 0.9% 1,000 ML IRRIGATION PRN (07:00)
[2024-01-25] MEDS ORDERED: HEPARIN SODIUM,PORCINE (1 ML) 2,500 UNIT in SODIUM CHLORIDE 0.9% 250 ML IRRIGATION PRN (07:00)
--- NOTE | 2024-01-25 10:18 | P.PN ---
Subjective Progress Note Date: 01/25/24 The patient was seen and evaluated this morning. He is asymptomatic beside shortness of breath only with exertion but no pain in the chest. The physical examination is remarkable for regular rhythm with a soft systolic murmur at the apical area appeared to be pansystolic and clear breathing sounds bilaterally. Assessment Chest discomfort Shortness of breath Valvular heart disease Abnormal myocardial perfusion imaging stress test Plan Proceed with coronary angiogram on Saturday Follow-up with the patient Objective - Vital Signs Vital signs: Vital Signs Temp 98.0 F 01/25/24 07:00 Pulse 65 01/25/24 07:00 Resp 17 01/25/24 08:00 BP 128/68 01/25/24 07:00 Pulse Ox 97 01/25/24 07:00 FiO2 Intake & Output 01/24/24 01/25/24 01/25/24 18:59 06:59 18:59 Intake Total 416 Balance 416 Intake: Oral 416 Other: Voiding Method Toilet # Voids 7 1 - Labs CBC & Chem 7: 01/23/24 03:39 01/24/24 06:55 Labs: Abnormal Lab Results - Last 24 Hours (Table) 01/24/24 01/24/24 01/24/24 Range/Units 06:23 12:57 17:17 POC Glucose (mg/dL) 115 H 284 H 186 H (70-110) mg/dL Hemoglobin A1c (<=6.0) % 01/24/24 01/25/24 Range/Units 20:12 02:42 POC Glucose (mg/dL) 222 H (70-110) mg/dL Hemoglobin A1c 7.5 H (<=6.0) %
--- NOTE | 2024-01-25 11:25 | P.PN ---
Subjective Progress Note Date: 01/25/24 Patient is a 63-year-old male who presented to the emergency department with chest pain while walking to get his mail and felt extremely short of breath like he was going to pass out. Patient reports he follows with Dr. Zepeda in the outpatient setting with past medical history of asthma, angina, COPD, diabetes mellitus, GERD, hyperlipidemia, hypertension, osteoarthritis, and bipolar disorder. Patient reports he does not smoke and occasionally very rarely will drink but he does report to using marijuana occasionally as well. Patient did have troponins x 3 that were negative and patient was admitted for cardiology consultation for chest pain. Patient evaluated by cardiology recommending stress testing. 01/23. Patient is seen and examined. Stress test performed yesterday was negative. Echocardiogram shows EF 50-55%, mild mitral valve prolapse of posterior leaflet, moderate eccentric jet of mitral regurgitation. D-dimer was negative. Patient endorses continued chest pain. Denies shortness of breath, abdominal pain. Lexiscan revealed: Small area of reversibility at the inferior apical wall. 01/24. Patient seen and examined. Lexiscan revealed small area of reversibility at the inferior apical wall. Cardiology is recommending cardiac catheterization on Friday 01/26. Endorses mild shortness of breath with exertion, not new. ROS reviewed. Pertinent positives and negatives discussed above, a complete review of systems was performed and all the other systems were negative. Vital signs are stable. General: No acute distress. HEENT: Head exam is unremarkable. Lungs: Bilateral breath sounds present; no rhonchi, wheezes, or rales. Heart: Rate and rhythm are regular. Abdomen: Nontender. Extremities: No edema present. Assessment/Plan: Chest pain ACS ruled out, troponins x 3 negative Lexiscan revealed small area of reversibility at the inferior apical wall Cardiology recommends cardiac catheterization on Friday 01/26 Hypertension Hold losartan/hydrochlorothiazide Hyperlipidemia Continue Lipitor Diabetes mellitus type 2 Insulin sliding scale Hold metformin Continue Tradjenta Acute kidney injury, possibly secondary to losartan/hydrochlorothiazide use Hold losartan/hydrochlorothiazide Hold metformin COPD, not currently in exacerbation History of GERD Continue Protonix History of bipolar Continue Vraylar Continue Prozac Morbid obesity with a BMI of 40.3 Dr. Layo MD I have performed a history and physical examination and medical decision making of this patient, discussed the same with the the resident, and agree with the assessment and plan as written. I performed brief physical exam. Objective - Vital Signs Vital signs: Vital Signs Temp 98.0 F 01/25/24 07:00 Pulse 65 01/25/24 07:00 Resp 17 01/25/24 07:00 BP 128/68 01/25/24 07:00 Pulse Ox 97 01/25/24 07:00 FiO2 Intake & Output 01/24/24 01/25/24 01/25/24 18:59 06:59 18:59 Intake Total 416 Balance 416 Intake: Oral 416 Other: # Voids 7 1 - Labs CBC & Chem 7: 01/23/24 03:39 01/26/24 03:06 Labs: Abnormal Lab Results - Last 24 Hours (Table) 01/24/24 01/24/24 01/24/24 Range/Units 06:23 12:57 17:17 POC Glucose (mg/dL) 115 H 284 H 186 H (70-110) mg/dL 01/24/24 Range/Units 20:12 POC Glucose (mg/dL) 222 H (70-110) mg/dL
[2024-01-25 12:01] LABS: Glucose,Whole Blood 179 mg/dL (70-110)
[2024-01-25 12:14] LABS: BUN/Creat Ratio 14.07 Ratio (12.00-20.00); Blood Urea Nitrogen 21.1 mg/dL (9.0-27.0); Chloride 102 mmol/L (96-109); Glucose 119 mg/dL (70-110); Magnesium 1.8 mg/dL (1.5-2.4); Potassium 3.9 mmol/L (3.5-5.5); Sodium 138 mmol/L (135-145)
[2024-01-25 12:15] LABS: Calcium 8.9 mg/dL (8.7-10.3); Carbon Dioxide 25.5 mmol/L (21.6-31.8)
[2024-01-25 17:23] LABS: Glucose,Whole Blood 250 mg/dL (70-110)
[2024-01-25 20:55] LABS: Glucose,Whole Blood 203 mg/dL (70-110)
[2024-01-26 06:07] LABS: Glucose,Whole Blood 130 mg/dL (70-110)
[2024-01-26 08:07] LABS: Glucose,Whole Blood 132 mg/dL (70-110)
[2024-01-26 09:37] LABS: Blood Urea Nitrogen 21.6 mg/dL (9.0-27.0); Calcium 8.7 mg/dL (8.7-10.3); Carbon Dioxide 24.9 mmol/L (21.6-31.8); Chloride 101 mmol/L (96-109); Glucose 195 mg/dL (70-110); Sodium 136 mmol/L (135-145)
--- NOTE | 2024-01-26 11:16 | P.PN ---
Subjective Progress Note Date: 01/26/24 January 25, 2024 The patient was seen and evaluated this morning. He is asymptomatic beside shortness of breath only with exertion but no pain in the chest. The physical examination is remarkable for regular rhythm with a soft systolic murmur at the apical area appeared to be pansystolic and clear breathing sounds bilaterally. January 26, 2024 The patient was seen and evaluated this morning. He is asymptomatic. He reports no pain in the chest or shortness of breath or dizziness or lightheaded ness or any feeling of heart racing or furthering or presyncope or syncope. Hemodynamically he is stable. The plan is to pursue with a heart catheterization tomorrow. The examination is remarkable for regular rhythm with a soft systolic murmur and clear breathing sounds bilaterally and no edema was noted in the lower extremities Assessment Chest discomfort Shortness of breath Valvular heart disease Abnormal myocardial perfusion imaging stress test Plan Proceed with coronary angiogram tomorrow Follow-up with the patient Objective - Vital Signs Vital signs: Vital Signs Temp 97.9 F 01/26/24 07:00 Pulse 71 01/26/24 07:00 Resp 14 01/26/24 07:00 BP 125/76 01/26/24 07:00 Pulse Ox 99 01/26/24 07:00 FiO2 Intake & Output 01/25/24 01/26/24 01/26/24 18:59 06:59 18:59 Intake Total 240 591 Balance 240 591 Intake: Oral 240 591 Other: Voiding Method Toilet # Voids 2 2 - Labs CBC & Chem 7: 01/23/24 03:39 01/26/24 03:06 Labs: Abnormal Lab Results - Last 24 Hours (Table) 01/25/24 01/25/24 01/25/24 Range/Units 02:42 12:00 17:21 Est GFR (CKD-EPI) 52 L (>=60) Glucose 119 H (70-110) mg/dL POC Glucose (mg/dL) 179 H 250 H (70-110) mg/dL 01/25/24 01/26/24 01/26/24 Range/Units 20:54 03:06 06:06 Est GFR (CKD-EPI) 52 L (>=60) Glucose 195 H (70-110) mg/dL POC Glucose (mg/dL) 203 H 130 H (70-110) mg/dL 01/26/24 Range/Units 08:04 Est GFR (CKD-EPI) (>=60) Glucose (70-110) mg/dL POC Glucose (mg/dL) 132 H (70-110) mg/dL
[2024-01-26 11:46] LABS: Glucose,Whole Blood 245 mg/dL (70-110)
--- NOTE | 2024-01-26 14:46 | P.PN ---
Subjective Progress Note Date: 01/26/24 Patient is a 63-year-old male who presented to the emergency department with chest pain while walking to get his mail and felt extremely short of breath like he was going to pass out. Patient reports he follows with Dr. Zepeda in the outpatient setting with past medical history of asthma, angina, COPD, diabetes mellitus, GERD, hyperlipidemia, hypertension, osteoarthritis, and bipolar disorder. Patient reports he does not smoke and occasionally very rarely will drink but he does report to using marijuana occasionally as well. Patient did have troponins x 3 that were negative and patient was admitted for cardiology consultation for chest pain. Patient evaluated by cardiology recommending stress testing. 01/23. Patient is seen and examined. Stress test performed yesterday was negative. Echocardiogram shows EF 50-55%, mild mitral valve prolapse of posterior leaflet, moderate eccentric jet of mitral regurgitation. D-dimer was negative. Patient endorses continued chest pain. Denies shortness of breath, abdominal pain. Lexiscan revealed: Small area of reversibility at the inferior apical wall. 01/24. Patient seen and examined. Lexiscan revealed small area of reversibility at the inferior apical wall. Cardiology is recommending cardiac catheterization on Friday 01/26. Endorses mild shortness of breath with exertion, not new. 01/26/2024 Patient is evaluated today at the medical floor he currently reporting no chest pain or shortness of breath. He is scheduled to undergo cardiac catheterization on Saturday 0 916. Patient does report that he has not had a bowel movement since last and is requesting a laxative. Review of Systems Constitutional: Denied any fatigue denied any fever. Cardio vascular: denied any chest pain, palpitations Gastrointestinal: denied any nausea, vomiting, diarrhea Pulmonary: Denied any shortness of breath cough Neurologic denied any new focal deficits All inpatient medications were reviewed and appropriate changes in these medic ations as dictated in the interval history and assessment and plan. PHYSICAL EXAMINATION: GENERAL: The patient is alert and oriented x3, not in any acute distress. Well developed, well nourished. HEENT: Pupils are round and equally reacting to light. EOMI. No scleral icterus. No conjunctival pallor. Normocephalic, atraumatic. No pharyngeal erythema. No thyromegaly. CARDIOVASCULAR: S1 and S2 present. No murmurs, rubs, or gallops. PULMONARY: Chest is clear to auscultation, no wheezing or crackles. ABDOMEN: Soft, nontender, nondistended, normoactive bowel sounds. No palpable organomegaly. MUSCULOSKELETAL: No joint swelling or deformity. EXTREMITIES: No cyanosis, clubbing, or pedal edema. NEUROLOGICAL: Gross neurological examination did not reveal any focal deficits. SKIN: No rashes. Assessment Chest pain ACS ruled out, troponins x 3 negative Lexiscan revealed small area of reversibility at the inferior apical wall Cardiology recommends cardiac catheterization on Friday 01/26 Hypertension Hold losartan/hydrochlorothiazide Hyperlipidemia Continue Lipitor Diabetes mellitus type 2 Insulin sliding scale Hold metformin Continue Tradjenta Continue levemir Acute kidney injury, possibly secondary to losartan/hydrochlorothiazide use Hold losartan/hydrochlorothiazide Hold metformin COPD, not currently in exacerbation History of GERD Continue Protonix History of bipolar Continue Vraylar Continue Prozac Morbid obesity with a BMI of 40.3 -Constipation Add miralax daily Lactulose x 1 The impression and plan of care has been dictated by Arelis Rivas, Nurse Practitioner as directed. Dr. Layo MD I have performed a history and physical examination and medical decision making of this patient, discussed the same with the dictator, and agree with the dictators assessment and plan as written, documented as a scribe. Based on total visit time, I have performed more than 50% of this visit. Objective - Vital Signs Vital signs: Vital Signs Temp 97.9 F 01/26/24 07:00 Pulse 71 01/26/24 07:00 Resp 14 01/26/24 07:00 BP 125/76 01/26/24 07:00 Pulse Ox 99 01/26/24 07:00 FiO2 Intake & Output 01/25/24 01/26/24 01/26/24 18:59 06:59 18:59 Intake Total 240 591 Balance 240 591 Intake: Oral 240 591 Other: Voiding Method Toilet # Voids 2 2 - Labs CBC & Chem 7: 01/23/24 03:39 01/26/24 03:06 Labs: Abnormal Lab Results - Last 24 Hours (Table) 01/25/24 01/25/24 01/25/24 Range/Units 02:42 12:00 17:21 Est GFR (CKD-EPI) 52 L (>=60) Glucose 119 H (70-110) mg/dL POC Glucose (mg/dL) 179 H 250 H (70-110) mg/dL 01/25/24 01/26/24 01/26/24 Range/Units 20:54 03:06 06:06 Est GFR (CKD-EPI) 52 L (>=60) Glucose 195 H (70-110) mg/dL POC Glucose (mg/dL) 203 H 130 H (70-110) mg/dL 01/26/24 Range/Units 08:04 Est GFR (CKD-EPI) (>=60) Glucose (70-110) mg/dL POC Glucose (mg/dL) 132 H (70-110) mg/dL Assessment and Plan Time with Patient: Less than 30
[2024-01-26] MEDS: LACTULOSE 20 GM/30 ML CUP PO ONE (14:58)
[2024-01-26 17:18] LABS: Glucose,Whole Blood 223 mg/dL (70-110)
[2024-01-26 20:25] LABS: Glucose,Whole Blood 230 mg/dL (70-110)
[2024-01-26] MEDS: SODIUM CHLORIDE 0.9% 1,000 ML in EMPTY BAG 1 BAG IV SCH (22:15)
[2024-01-27 05:21] LABS: Glucose,Whole Blood 148 mg/dL (70-110)
[2024-01-27] MEDS: ASPIRIN 325 MG TAB PO ONE ×2 (06:11→06:14)
[2024-01-27] MEDS: ATORVASTATIN 80 MG TAB PO ONE (06:14)
[2024-01-27] MEDS: IV FLUID CONTINUATION 950 ML IV ONE (07:18)
[2024-01-27] MEDS: LIDOCAINE 1% INJ 10MG/ML (20 ML MDV) SQ ONE (07:39)
[2024-01-27] MEDS: VERAPAMIL SYRINGE (5 MG/10 ML) INTRAARTER ONE (07:40)
[2024-01-27] MEDS: fentaNYL (PF) 50 MCG/ML 2 ML AMP IVP ONE ×2 (07:40)
[2024-01-27] MEDS: MIDAZOLAM 2 MG/2 ML VIAL IVP ONE ×2 (07:40)
[2024-01-27 07:55] VITALS: RESP 17
[2024-01-27] MEDS: IOPAMIDOL-370 100ML BTL INJ ONE (08:00)
[2024-01-27] MEDS ORDERED: RX INFO: IV CONTRAST WAS GIVEN 1 EACH MISC MISCELLANE PRN (08:18)
[2024-01-27 09:01] LABS: BUN/Creat Ratio 13.73 Ratio (12.00-20.00); Blood Urea Nitrogen 20.6 mg/dL (9.0-27.0); Calcium 8.7 mg/dL (8.7-10.3); Carbon Dioxide 24.9 mmol/L (21.6-31.8); Chloride 103 mmol/L (96-109); Glucose 192 mg/dL (70-110); Potassium 4.2 mmol/L (3.5-5.5); Sodium 138 mmol/L (135-145)
[2024-01-27] MEDS: polyethylene glycoL 3350 17 GM POWD.PACK PO SCH (09:12)
--- NOTE | 2024-01-27 09:43 | CC ---
CARDIAC CATHETERIZATION REPORT INDICATION: Chest pain with abnormal stress test showing ischemia in the right coronary artery distribution. PROCEDURE NOTE: After obtaining informed consent, left heart catheterization and coronary angiogram were performed via the right femoral artery using standard Star catheters. The patient tolerated the procedure well without any obvious immediate complications. A femoral angiogram was performed and decision was made for manual hemostasis. The patient received moderate conscious sedation. Total sedation time was 25 minutes. I initially attempted right radial artery access, but was unsuccessful as his radial pulses are feeble. I completed a femoral catheterization uneventfully and manual hemostasis will be done. FINDINGS: 1. Hemodynamics: Left ventricular end-diastolic pressure is 10 mm. There is no significant gradient across the aortic valve. 2. Left ventriculogram: Left ventriculogram is performed in JEFFERS position. It shows mildly dilated left ventricle with normal LV function and 1 to 2+ mitral regurgitation. ANGIOGRAPHIC DATA: Right coronary artery: Right coronary artery is a large dominant vessel and is free of significant stenosis. Left main coronary artery appears as a normal size, divides into left anterior descending coronary artery and circumflex coronary artery. LAD and its branches, circumflex coronary artery and its branches are free of significant stenosis. CONCLUSIONS: 1. Normal coronary arteries. 2. 1 to 2+ mitral regurgitation. PLAN: The patient's chest discomfort is probably noncardiac in origin and the stress test is a false-positive stress test. His management is going to be in the form of aggressive risk factor modification and medical therapy. MMODL / IJN: [id number] /
[2024-01-27 12:23] LABS: Glucose,Whole Blood 228 mg/dL (70-110)
[2024-01-27] MEDS: SODIUM CHLORIDE 0.9% 1,000 ML IV SCH (13:17)
--- NOTE | 2024-01-27 13:38 | P.DS ---
Providers Date of admission: 01/22/24 18:02 Attending physician: Jose Oliver MD Consults: 01/22/24 17:59 Consult Physician Routine Consulting Provider: [facility] Consult Reason/Comments: chest pain Do you want consulting provider notified?: Yes Primary care physician: Palmira Zepeda [facility] Course: Patient is a 63-year-old male who presented to the emergency department with chest pain while walking to get his mail and felt extremely short of breath like he was going to pass out. Patient reports he follows with Dr. Zepeda in the outpatient setting with past medical history of asthma, angina, COPD, diabetes mellitus, GERD, hyperlipidemia, hypertension, osteoarthritis, and bipolar disorder. Patient reports he does not smoke and occasionally very rarely will drink but he does report to using marijuana occasionally as well. Patient did have troponins x 3 that were negative and patient was admitted for cardiology consultation for chest pain. Patient evaluated by cardiology recommending stress testing. 01/23. Patient is seen and examined. Stress test performed yesterday was negative. Echocardiogram shows EF 50-55%, mild mitral valve prolapse of posterior leaflet, moderate eccentric jet of mitral regurgitation. D-dimer was negative. Patient endorses continued chest pain. Denies shortness of breath, abdominal pain. Lexiscan revealed: Small area of reversibility at the inferior apical wall. 01/24. Patient seen and examined. Lexiscan revealed small area of reversibility at the inferior apical wall. Cardiology is recommending cardiac catheterization on Friday 01/26. Endorses mild shortness of breath with exertion, not new. 01/25. Patient is evaluated today at the medical floor he currently reporting no chest pain or shortness of breath. He is scheduled to undergo cardiac catheterization on Saturday 0 916. Patient does report that he has not had a bowel movement since last and is requesting a laxative. 01/26. Patient is seen and examined bedside. Still has not had a bowel movement, taking miralax. Denies chest pain, shortness of breath, abdominal pain, fever. Patient underwent cardiac catheterization today which showed: Normal coronary arteries indicating chest discomfort is probably noncardiac in origin and stress test is false positive stress test. Cardiology recommends that he is managed in the form of aggressive risk factor modification and medical therapy. He is stable for discharge medically and from a cardiology standpoint. ROS reviewed. Pertinent positives and negatives discussed above, a complete review of systems was performed and all the other systems were negative. Final diagnosis Chest pain, resolved Hypertension Hyperlipidemia Diabetes mellitus type 2 Acute kidney injury, resolved COPD History of GERD History of bipolar Physical examination: Vital signs are stable. General: No acute distress. HEENT: Head exam is unremarkable. Lungs: Bilateral breath sounds present; no rhonchi, wheezes, or rales. Heart: Rate and rhythm are regular. Abdomen: Nontender. Extremities: No edema present. Attestation I have seen and examined this patient with my resident , discussed the same with the resident/REE, and agree with the dictator's assessment and plan as written Dr. Jimmy beckman Patient Condition at Discharge: Good Plan - Discharge Summary Discharge Rx Participant: Yes New Discharge Prescriptions: New Aspirin 81 mg PO DAILY #30 tab Continue Omeprazole 20 mg PO DAILY Vitamin D3(Unknown Dose) 1 tab PO DAILY Magnesium 325mg 975 mg PO DAILY Ferrous Sulfate [Iron (65 MG Elemental)] 325 mg PO BID Linagliptin [Tradjenta] 5 mg PO DAILY Vitamin B-12(Unknown Dose) 1 tab PO DAILY metFORMIN HCL [Glucophage] 1,000 mg PO DAILY #0 FLUoxetine HCL [PROzac] 40 mg PO DAILY Insulin Degludec [Tresiba] 48 units SQ HS Turmeric Root Extract [Turmeric] 1,000 mg PO DAILY Cariprazine HCl [Vraylar] 3 mg PO HS Atorvastatin [Lipitor] 80 mg PO HS #30 tab HYDROcodone/APAP 10-325MG [Linden 10-325] 1 tab PO QID Losartan/Hydrochlorothiazide [Hyzaar 100-25 Tablet] 1 tab PO DAILY Discharge Medication List FLUoxetine HCL [PROzac] 40 mg PO DAILY 10/04/21 [History] Omeprazole 20 mg PO DAILY 10/04/21 [History] Insulin Degludec [Tresiba] 48 units SQ HS 01/31/22 [History] Cariprazine HCl [Vraylar] 3 mg PO HS 08/21/22 [History] Turmeric Root Extract [Turmeric] 1,000 mg PO DAILY 08/21/22 [History] Atorvastatin [Lipitor] 80 mg PO HS #30 tab 08/24/22 [Rx] HYDROcodone/APAP 10-325MG [Linden 10-325] 1 tab PO QID 12/06/22 [History] Ferrous Sulfate [Iron (65 MG Elemental)] 325 mg PO BID 01/22/24 [History] Linagliptin [Tradjenta] 5 mg PO DAILY 01/22/24 [History] Losartan/Hydrochlorothiazide [Hyzaar 100-25 Tablet] 1 tab PO DAILY 01/22/24 [History] Magnesium 325mg 975 mg PO DAILY 01/22/24 [History] Vitamin B-12(Unknown Dose) 1 tab PO DAILY 01/22/24 [History] Vitamin D3(Unknown Dose) 1 tab PO DAILY 01/22/24 [History] Aspirin 81 mg PO DAILY #30 tab 01/23/24 [Rx] metFORMIN HCL [Glucophage] 1,000 mg PO DAILY #0 01/27/24 [Rx] Follow up Appointment(s)/Referral(s): Palmira Zepeda DO [Primary Care Provider] - 1-2 days Tod Warren MD [STAFF PHYSICIAN] - 02/04/24 2:30 pm Patient Instructions/Handouts: *Surgery [facility] - After Heart Catheterization - Nurse Sane Instructions, Heart Catheterization (DC) Activity/Diet/Wound Care/Special Instructions: Activity limited until follow-up Follow-up with primary care provider on discharge Continue taking medications as prescribed Resume metformin 01/29/24 Continue heart healthy diabetic diet Follow-up with cardiology in 1 to 2 weeks Discharge Disposition: HOME SELF-CARE
[2024-01-27 15:59] VITALS: BP 144/81; PULSE 78; TEMP 98.4
== END 2024-01-27 16:44 | disposition home or self-care (01) | DRG 287 ==
LOC: EC 16:11 → 6NMEDSUR 18:01 → OBSVTOIN 18:02 → 6NMEDSUR 18:51
PROVIDERS: ADMIT Internal Medicine; ATTEND Internal Medicine
PROC: B2151ZZ Fluoroscopy of Left Heart using Low Osmolar Contrast (ICD-10-PCS; principal; 2024-01-27 07:30)
PROC: B2111ZZ Fluoroscopy of Multiple Coronary Arteries using Low Osmolar Contrast (ICD-10-PCS; principal; 2024-01-27 07:30)
PROC: 4A023N7 Measurement of Cardiac Sampling and Pressure, Left Heart, Percutaneous Approach (ICD-10-PCS; principal; 2024-01-27 07:30)
DX: R07.9 Chest pain, unspecified (principal); N17.9 Acute kidney failure, unspecified; Z68.41 Body mass index [BMI] 40.0-44.9, adult; E11.22 Type 2 diabetes mellitus with diabetic chronic kidney disease; E11.65 Type 2 diabetes mellitus with hyperglycemia; E66.01 Morbid (severe) obesity due to excess calories; E78.5 Hyperlipidemia, unspecified; F31.9 Bipolar disorder, unspecified; I12.9 Hypertensive chronic kidney disease with stage 1 through stage 4 chronic kidney disease, or unspecified chronic kidney disease; I34.0 Nonrheumatic mitral (valve) insufficiency; I34.1 Nonrheumatic mitral (valve) prolapse; J44.89 Other specified chronic obstructive pulmonary disease; K21.9 Gastro-esophageal reflux disease without esophagitis; K59.00 Constipation, unspecified; M19.90 Unspecified osteoarthritis, unspecified site; N18.9 Chronic kidney disease, unspecified; Z79.4 Long term (current) use of insulin; Z79.82 Long term (current) use of aspirin; Z79.84 Long term (current) use of oral hypoglycemic drugs; Z79.899 Other long term (current) drug therapy; Z80.0 Family history of malignant neoplasm of digestive organs; Z86.010 Personal history of colon polyps; Z28.310 Unvaccinated for COVID-19; Z79.891 Long term (current) use of opiate analgesic
CPT/HCPCS: 36415; 71046; 78452; 80048; 80053; 83036; 83735; 83880; 84484; 85025; 85379; 85610; 85730; 93005; 93017; 93306; 93458; 94640; 96374; 99285

== ENCOUNTER → 2024-10-16 | Outpatient (CLI) | payer MEDICARE, OTHER ==
--- NOTE | 2024-10-16 14:23 | US ---
EXAMINATION TYPE: US kidneys/renal and bladder DATE OF EXAM: 10/16/2024 COMPARISON: NONE CLINICAL INDICATION: Male, 63 years old with history of N18.30 CKD STAGE 3; Abnormal labs. TECHNIQUE: Grayscale imaging of the bilateral kidneys and urinary bladder: FINDINGS: EXAM MEASUREMENTS: Right Kidney: 10.5 x 4.1 x 5.0 cm Left Kidney: 11.4 x 4.1 x 4.6 cm Right Kidney: No hydronephrosis or masses seen Left Kidney: Cortical thinning. Dilated renal pelvis without calyceal dilatation. Possible cortical lobularity. Possible upper medial hypoechoic lesion vs other etiology = 3.1 x 2.8 x 2.6 cm Bladder: Anechoic Bilateral Jets seen There is no evidence for hydronephrosis at this point in time. Cortical thinning and increased cortic al echogenicity in the left kidney. Lobulated contour to the upper pole left kidney small 3.0 cm julia d mass not excluded. Urinary bladder is unremarkable. IMPRESSION: No hydronephrosis is seen bilaterally. Cannot entirely exclude solid mass/neoplasm upper pole left kidney. Advise renal protocol CT or MRI study without and with contrast to further evaluate . [facility], , 10/16/2024 2:21 PM
== END | disposition home or self-care (01) ==
LOC: RADUSWWP 12:54
PROVIDERS: ATTEND Internal Medicine
DX: N18.30 Chronic kidney disease, stage 3 unspecified (principal)
CPT/HCPCS: 76770

== ENCOUNTER → 2024-10-29 | Outpatient (CLI) | payer MEDICARE, OTHER ==
[2024-10-29 15:27] LABS: African American GFR (CKD) 63 (>60 ml/min/1.73 sqM); Blood Urea Nitrogen 23 mg/dL (9-20); Non-African American GFR(CKD) 54 (>60 ml/min/1.73 sqM)
--- NOTE | 2024-10-30 09:53 | CT ---
EXAMINATION TYPE: CT abdomen wo/w con DATE OF EXAM: 10/29/2024 3:59 PM COMPARISON: Ultrasound 10/16/2024, CT 12/06/2022. CLINICAL INDICATION: Male, 63 years old with history of N28.89 SPECIFIED DISORDERS OF KIDNEY AND URET ER; 3 CM KIDNEY STONE MASS IN LEFT KIDNEY TECHNIQUE: Axial CT abdomen wo/w con;Sagittal and coronal reformats were created on a separate works tation. Contrast used:80 mL of Isovue 300 with IV Contrast, (none if empty) Oral contrast used: without Oral Contrast (none if empty) CT DLP: 5 mGycm, Automated exposure control for dose reduction was used. FINDINGS: LOWER CHEST: Unremarkable ABDOMEN LIVER: Unremarkable GALLBLADDER AND BILE DUCTS: Unremarkable. PANCREAS: Unremarkable. SPLEEN: Unremarkable. ADRENAL GLANDS: Unremarkable. KIDNEYS AND URETERS: No solid neoplasm in the left superior pole finding on prior compatible with art ifact and ultrasound. No evidence of hydronephrosis or obstructing renal calculus. The ureters are un remarkable. ABDOMEN & PELVIS STOMACH AND BOWEL: No evidence of bowel obstruction. PERITONEUM/RETROPERITONEUM: No evidence of pneumoperitoneum or free fluid. VASCULATURE: Mild atherosclerotic calcifications are present throughout the abdominal aorta and its b ranches. No evidence of aortic aneurysm. MUSCULOSKELETAL: No acute osseous abnormalities. Mild disc degeneration changes are present throughou t the thoracolumbar spine. LYMPH NODES: No gross evidence for lymphadenopathy. SOFT TISSUE/ABDOMINAL WALL: Unremarkable IMPRESSION: No evidence for mass in the left kidney. Normal parenchymal on the left superior renal pole. Finding on prior ultrasound was artifact. No evidence for acute intraluminal process. [facility], , 10/30/2024 9:50 AM
== END | disposition home or self-care (01) ==
LOC: RADCTMAIN 13:57
PROVIDERS: ATTEND Urology
DX: N28.89 Other specified disorders of kidney and ureter (principal)
CPT/HCPCS: 82565; 84520; 74170; 36415; Q9967